=== PATIENT | female | born 1950 | race Caucasian/White ===

== ENCOUNTER 2016-10-10 00:44 | Emergency (ER) | payer OTHER ==
[2016-10-10 02:54] LABS: ABSOLUTE EOSINOPHILS # (AUTO) 0.1 10^3/uL (0.0-0.6); ABSOLUTE LYMPHOCYTES (AUTO) 1.9 10^3/uL (0.5-4.7); ABSOLUTE MONOCYTES (AUTO) 0.5 10^3/uL (0.1-1.4); ABSOLUTE NEUT (AUTO) 3.9 10^3/uL (1.7-8.2); BASOPHILS % (AUTO) 0.3 % (0-2); EOSINOPHILS % (AUTO) 1.7 % (0-6); HEMATOCRIT 34.1 % (36.0-47.0); HGB HCT DIFFERENCE -1.1; LYMPHOCYTES % (AUTO) 29.1 % (13-45); MEAN CORPUSCULAR HEMOGLOBIN 29.8 pg (27.0-33.4); MEAN CORPUSCULAR HGB CONC 32.2 g/dL (32.0-36.0); MEAN CORPUSCULAR VOLUME 93 fl (80-97); MONOCYTES % (AUTO) 7.9 % (3-13); RED BLOOD COUNT 3.68 10^6/uL (3.72-5.28); RED CELL DISTRIBUTION WIDTH 15.3 % (11.5-14.0); WHITE BLOOD COUNT 6.4 10^3/uL (4.0-10.5)
[2016-10-10 03:08] LABS: ALANINE AMINOTRANSFERASE 21 U/L (9-52); ALBUMIN 4.3 g/dL (3.5-5.0); ALKALINE PHOSPHATASE 97 U/L (38-126); ANION GAP 11 (5-19); ASPARTATE AMINO TRANSFERASE 49 U/L (14-36); BILIRUBIN,TOTAL 0.3 mg/dL (0.2-1.3); BLOOD UREA NITROGEN 12 mg/dL (7-20); CALCIUM 9.8 mg/dL (8.4-10.2); CARBON DIOXIDE 25 mmol/L (22-30); CHLORIDE 100 mmol/L (98-107); CREATININE RESULT 1.02 mg/dL (0.52-1.25); GLUCOSE 73 mg/dL (75-110); SODIUM 136.4 mmol/L (137-145); TOTAL PROTEIN 7.6 g/dL (6.3-8.2)
[2016-10-10 03:12] LABS: APPEARANCE,URINE SLIGHTLY-CLOUDY; BILIRUBIN,URINE NEGATIVE (NEGATIVE); GLUCOSE, URINE NEGATIVE (NEGATIVE); KETONES,URINE NEGATIVE (NEGATIVE); LEUKOCYTE ESTERASE,URINE NEGATIVE (NEGATIVE); NITRITE,URINE NEGATIVE (NEGATIVE); PROTEIN,URINE NEGATIVE (NEGATIVE); URINE SPECIFIC GRAVITY 1.004; UROBILINOGEN,URINE NEGATIVE mg/dL (<2.0)
[2016-10-10] MEDS ORDERED: IPRATROPIUM/ALBUTEROL 0.5-2.5 MG/3 ML AMPUL NEB ONE (03:18)
--- NOTE | 2016-10-10 03:19 | ER Document Report ---
ED GI/ - General Chief Complaint: Diarrhea Stated Complaint: SHAKING/DIARRHEA Time seen by provider: 03:19 Mode of Arrival: Ambulatory Information source: Patient TRAVEL OUTSIDE OF THE [place] IN LAST 30 DAYS: No - HPI Patient complains to provider of: Diarrhea Onset: This afternoon Timing/Duration: Gradual Quality of pain: Achy Severity at maximum: Moderate Severity in ED: Moderate Pain Level: 3 Associated symptoms: Diarrhea, Nausea Exacerbated by: Denies Relieved by: Denies Similar symptoms previously: Yes Recently seen / treated by doctor: No Notes: 10/10/16 05:26 Patient is a 65-year-old female who presents to the emergency room complaining of painful cough, low back pain, rectal irritation from diarrhea, symptoms been going on throughout the day and started this afternoon, she denies any vomiting , she does report a headache, no fever, she has a nonproductive cough with some shortness of breath, she denies any sick contacts, she is a half a pack per day smoker, and reports a history of colon resection with causes her to have bouts of diarrhea at times - Related Data Allergies/Adverse Reactions: Penicillins Allergy (Verified 07/05/14 05:50) prednisone [Prednisone] Allergy (Verified 07/05/14 05:50) codeine phosphate [From Tylenol-Codeine] Adverse Reaction (Verified 07/05/14 05: 50) propoxyphene napsylate [From Darvocet-N 100] Adverse Reaction (Verified 05:50) Past Medical History - Social History Smoking Status: Current Every Day Smoker Chew tobacco use (# tins/day): No Frequency of alcohol use: None Drug Abuse: None Family History: None Patient has suicidal ideation: No Patient has homicidal ideation: No Pulmonary Medical History: Reports: Hx Asthma, Hx COPD Renal/ Medical History: Denies: Hx Peritoneal Dialysis Psychiatric Medical History: Reports: Hx Depression Past Surgical History: Reports: Hx Appendectomy, Hx Bowel Surgery, Hx Gynecologic Surgery - Immunizations Hx Diphtheria, Pertussis, Tetanus Vaccination: Yes Review of Systems - Review of Systems Constitutional: No symptoms reported EENT: No symptoms reported Cardiovascular: See HPI Respiratory: See HPI Gastrointestinal: See HPI Genitourinary: No symptoms reported Female Genitourinary: No symptoms reported Musculoskeletal: See HPI Skin: No symptoms reported Hematologic/Lymphatic: No symptoms reported Neurological/Psychological: Headaches -: Yes All other systems reviewed and negative Physical Exam - Vital signs Vitals: Temp Pulse Resp BP Pulse Ox 98.3 F 88 14 140/82 H 100 10/10/16 00:51 10/10/16 00:51 10/10/16 00:51 10/10/16 00:51 10/10/16 00:51 Interpretation: Normal - General General appearance: Appears well, Alert - HEENT Head: Normocephalic, Atraumatic Eyes: Normal Pupils: PERRL - Respiratory Respiratory status: No respiratory distress Chest status: Nontender Breath sounds: Nonproductive cough, Wheezing - Mild Chest palpation: Normal - Cardiovascular Rhythm: Regular Heart sounds: Normal auscultation Murmur: No - Abdominal Inspection: Normal Distension: No distension Bowel sounds: Normal Tenderness: Tender - Epigastric Organomegaly: No organomegaly - Back Back: Normal, Nontender - Extremities General upper extremity: Normal inspection, Nontender, Normal color, Normal ROM , Normal temperature General lower extremity: Normal inspection, Nontender, Normal color, Normal ROM , Normal temperature, Normal weight bearing. No: Remedios's sign - Neurological Neuro grossly intact: Yes Cognition: Normal Orientation: AAOx4 Benito Coma Scale Eye Opening: Spontaneous Hunter Coma Scale Verbal: Oriented Hunter Coma Scale Motor: Obeys Commands Benito Coma Scale Total: 15 Speech: Normal Motor strength normal: LUE, RUE, LLE, RLE Sensory: Normal - Psychological Associated symptoms: Normal affect, Normal mood - Skin Skin Temperature: Warm Skin Moisture: Dry Skin Color: Normal Course - Re-evaluation Re-evalutation: 10/10/16 05:27 Patient lab and imaging findings were discussed with her at bedside which are relatively unremarkable, symptoms consistent with viral illness, patient was advised for supportive care, advised to follow-up with her primary care provider in one to 2 days or return if symptoms worsen, patient acknowledges understanding and agreement with this plan - Vital Signs Vital signs: Temp Pulse Resp BP Pulse Ox 97.6 F 91 16 147/81 H 97 10/10/16 04:42 10/10/16 04:42 10/10/16 04:42 10/10/16 04:42 10/10/16 04:42 - Laboratory Result Diagrams: 10/10/16 02:41 10/10/16 02:41 Laboratory results interpreted by me: 01/10/10/16 10/10/16 02:41 02:41 02:59 RBC 3.68 L Hgb 11.0 L Hct 34.1 L RDW 15.3 H Sodium 136.4 L Est GFR (Non-Af Amer) 55 L Glucose 73 L AST 49 H Urine Blood MODERATE H - Diagnostic Test Radiology reviewed: Image reviewed, Reports reviewed - EKG Interpretation by Me EKG shows normal: Sinus rhythm Rate: Normal Rhythm: NSR Discharge - Discharge Clinical Impression: Viral upper respiratory illness COPD (chronic obstructive pulmonary disease) Qualifiers: COPD type: COPD with acute exacerbation Qualified Code(s): J44.1 - Chronic obstructive pulmonary disease with (acute) exacerbation Diarrhea Qualifiers: Diarrhea type: unspecified type Qualified Code(s): R19.7 - Diarrhea, unspecified Condition: Stable Disposition: HOME, SELF-CARE Instructions: Upper Respiratory Illness ([facility]), Diarrhea, Nonspecific ([facility]) Additional Instructions: Follow up with your primary care provider in one to 2 days. Return to the emergency room immediately if symptoms worsen or any additional concerns. Forms: Smoking Cessation Education
[2016-10-10] MEDS ORDERED: HYDROCODONE/ACETAMINOPHEN 5-325 MG TABLET PO ONE (04:21)
[2016-10-10] MEDS ORDERED: HYDROCODONE/ACETAMINOPHEN 5-325 MG 6 TAB/DSPK PO PRN (04:30)
[2016-10-10 04:47] VITALS: BP 147/81
--- NOTE | 2016-10-10 08:09 | EKG REPORT ---
SEVERITY:- ABNORMAL ECG - SINUS RHYTHM CONSIDER LEFT VENTRICULAR HYPERTROPHY : Confirmed by: Luiz Felipe MD 10-Oct-2016 08:07:40
== END 2016-10-10 04:47 | disposition home or self-care (01) ==
LOC: ER 00:44
DX: J44.1 Chronic obstructive pulmonary disease with (acute) exacerbation (principal); B34.9 Viral infection, unspecified; R19.7 Diarrhea, unspecified; R05 Cough; M54.5 Low back pain; F17.210 Nicotine dependence, cigarettes, uncomplicated; J45.909 Unspecified asthma, uncomplicated; Z88.6 Allergy status to analgesic agent; Z88.0 Allergy status to penicillin
CPT/HCPCS: 93005; 94640; 99284; 36415; 83690; 85025; 80053; 81001; 71020; 93010; J7620

== ENCOUNTER 2016-11-06 20:16 | Emergency (ER) | payer OTHER ==
[2016-11-06] MEDS ORDERED: ONDANSETRON HCL INJ/PF 4 MG/2 ML SDV IV ONE (22:38)
[2016-11-06] MEDS ORDERED: MORPHINE SULFATE 10 MG/ML INJ IV ONE (22:38)
[2016-11-06] MEDS ORDERED: NORMAL SALINE 1000 ML 1,000 ML IV ONE (22:38)
--- NOTE | 2016-11-06 22:48 | ER Document Report ---
ED General - General Chief Complaint: Nausea Stated Complaint: NAUSEA/BODY ACHES Notes: Patient is a 66-year-old female presents for complaint of body aches and vomiting for last couple days. She's also had a pain over her left back that radiates around her left flank. She did have some dysuria and originally but this has since gone away. She says that she had a friend with similar symptoms that she was exposed to now she has the same symptoms. Some cough. Mild congestion. No headache. Subbjective fevers at home. No other complaints at this time. She does have a cast on the left lower leg. She says she's had this cast for 8 weeks. TRAVEL OUTSIDE OF THE [place] IN LAST 30 DAYS: No - Related Data Allergies/Adverse Reactions: Penicillins Allergy (Verified 07/05/14 05:50) prednisone [Prednisone] Allergy (Verified 07/05/14 05:50) codeine phosphate [From Tylenol-Codeine] Adverse Reaction (Verified 07/05/14 05: 50) propoxyphene napsylate [From Darvocet-N 100] Adverse Reaction (Verified 05:50) Past Medical History - Social History Smoking Status: Unknown if Ever Smoked Frequency of alcohol use: None Drug Abuse: None Family History: None Patient has suicidal ideation: No Patient has homicidal ideation: No Pulmonary Medical History: Reports: Hx Asthma, Hx COPD Renal/ Medical History: Denies: Hx Peritoneal Dialysis Psychiatric Medical History: Reports: Hx Depression Past Surgical History: Reports: Hx Appendectomy, Hx Bowel Surgery, Hx Gynecologic Surgery - Immunizations Hx Diphtheria, Pertussis, Tetanus Vaccination: Yes Review of Systems - Review of Systems Notes: My Normal Review Basic REVIEW OF SYSTEMS: CONSTITUTIONAL : Subjective fever EENT: Some congestion CARDIOVASCULAR: Denies chest pain. RESPIRATORY: Cough GASTROINTESTINAL: Denies abdominal pain. Denies nausea, vomiting, or diarrhea. Denies constipation. Last BM: GENITOURINARY: Denies difficulty urinating, painful urination, burning, frequency, or blood in urine. MUSCULOSKELETAL: Pain over left upper back SKIN: Denies rash or skin lesions. NEUROLOGICAL: Denies altered mental status or loss of consciousness. Denies headache. Denies weakness or paralysis or loss of use of either side. Denies problems with gait or speech. Denies sensory or motor loss. ALL OTHER SYSTEMS REVIEWED AND NEGATIVE. Physical Exam - Vital signs Vitals: Temp Pulse Resp BP Pulse Ox 97.5 F 84 16 128/82 H 93 11/06/16 20:43 11/06/16 20:43 11/06/16 20:43 11/06/16 20:43 11/06/16 20:43 - Notes Notes: General Appearance: Well nourished, alert, cooperative, no acute distress, no obvious discomfort. Vitals: reviewed, See vital signs table. Head: no swelling or tenderness to the head Eyes: PERRL, EOMI, Conjuctiva clear Mouth: No decreasd moisture Throat: No tonsillar inflammation, No airway obstruction, No lymphadenopathy Ears: Normal appearing tympanic membranes Neck: Supple, no neck tenderness, No thyromegaly Lungs: No wheezing, No rales, No rhonci, No accessory muscle use, good air exchange bilaterally. Heart: Normal rate, Regular rythm, No murmur, no rub Abdomen: Normal BS, soft, No rigidity, No abdominal tenderness, No guarding, no rebound, no abdominal masses, no organomegaly Extremities: strength 5/5 in all extremities, good pulses in all extremities, no swelling or tenderness in the extremities, no edema. Skin: warm, dry, appropriate color, no rash Neuro: speech clear, oriented x 3, normal affect, responds appropriately to questions. Course - Re-evaluation Re-evalutation: 11/07/16 01:28 Patient is also me that the pain is radiating from her back around into her chest. She still says the pain is mainly in her back says is radiating more around now. Is not worse with coughing or deep breathing. D-dimer is negative. Pain pain started radiating around the chest and will obtain EKG and cardiac enzymes. I do think it is unlikely it will be cardiac in etiology being that she's had more URI of viral type symptoms so she with it; however, she does have some risk factors including smoking and age and therefore we will obtain EKG and cardiac enzymes. - Vital Signs Vital signs: Temp Pulse Resp BP Pulse Ox 97.8 F 77 14 148/74 H 97 11/07/16 02:53 11/07/16 02:53 11/07/16 02:53 11/07/16 02:53 11/07/16 02:53 - Laboratory Result Diagrams: 11/06/16 23:44 11/06/16 23:44 Laboratory results interpreted by me: 11/06/16 11/06/16 11/06/16 23:15 23:44 23:44 RDW 16.3 H Sodium 136.5 L Est GFR (Non-Af Amer) 52 L Glucose 118 H Urine Blood SMALL H - EKG Interpretation by Me Additional EKG results interpreted by me: 11/07/16 02:20 EKG is reviewed and interpreted by me. EKG shows normal sinus rhythm with rate of [address] segment elevation or depression. No ischemic T wave inversions. VT interval, QRS duration, QTC intervals are within normal range. Old EKG for comparison is from [facility] 2016. - Transfer of Care Notes: 11/07/16 06:10 Exact cause of patient's body aches unclear. I did obtain cardiac enzymes and EKG discussed pain was in her left back. These are negative. I really do not suspect coronary disease. I suspect her pain is poorly related to all her coughing from her recent upper chest but toward type infection. Her symptoms seem very consistent with a flulike illness or upper respiratory infection and that she has body aches, chills, cough, and nasal congestion. At this time for patient safety be discharged home. I encourage her to return to ER immediately if she has worsening of her symptoms, difficulty breathing, or feels unwell. Patient agrees with plan and will be discharged home. Dictation of this chart was performed using voice recognition software; therefore, there may be some unintended grammatical errors. Discharge - Discharge Clinical Impression: Body aches, Cough, Bronchitis Condition: Good Disposition: HOME, SELF-CARE Instructions: Oral Narcotic Medication ([facility]) Additional Instructions: Please do not drive when taking the prescribed pain medicine, Ultram. Please follow-up with your doctor for reevaluation to 3 days. Please return to ER immediately for any difficulty breathing, worsening pain, fevers, or feel unwell. Prescriptions: Azithromycin 250 mg PO DAILY #4 tablet Tramadol HCl 50 mg PO Q6 PRN #12 tablet PRN Reason:
[2016-11-06 23:52] LABS: APPEARANCE,URINE SLIGHTLY-CLOUDY; BILIRUBIN,URINE NEGATIVE (NEGATIVE); GLUCOSE, URINE NEGATIVE (NEGATIVE); KETONES,URINE NEGATIVE (NEGATIVE); LEUKOCYTE ESTERASE,URINE NEGATIVE (NEGATIVE); NITRITE,URINE NEGATIVE (NEGATIVE); PROTEIN,URINE NEGATIVE (NEGATIVE); URINE SPECIFIC GRAVITY 1.013; UROBILINOGEN,URINE NEGATIVE mg/dL (<2.0)
[2016-11-06 23:53] LABS: ABSOLUTE EOSINOPHILS # (AUTO) 0.1 10^3/uL (0.0-0.6); ABSOLUTE MONOCYTES (AUTO) 0.8 10^3/uL (0.1-1.4); ABSOLUTE NEUT (AUTO) 4.5 10^3/uL (1.7-8.2); BASOPHILS % (AUTO) 0.3 % (0-2); EOSINOPHILS % (AUTO) 0.8 % (0-6); HEMATOCRIT 37.8 % (36.0-47.0); HEMOGLOBIN 12.6 g/dL (12.0-15.5); LYMPHOCYTES % (AUTO) 35.8 % (13-45); MEAN CORPUSCULAR HEMOGLOBIN 30.9 pg (27.0-33.4); MEAN CORPUSCULAR HGB CONC 33.5 g/dL (32.0-36.0); MEAN CORPUSCULAR VOLUME 92 fl (80-97); MONOCYTES % (AUTO) 9.2 % (3-13); RED CELL DISTRIBUTION WIDTH 16.3 % (11.5-14.0); SEGMENTED NEUTROPHILS % (AUTO) 53.9 % (42-78); WHITE BLOOD COUNT 8.3 10^3/uL (4.0-10.5)
[2016-11-07 00:05] LABS: ANION GAP 14 (5-19); BLOOD UREA NITROGEN 15 mg/dL (7-20); CALCIUM 9.9 mg/dL (8.4-10.2); CARBON DIOXIDE 23 mmol/L (22-30); CHLORIDE 100 mmol/L (98-107); CREATININE RESULT 1.06 mg/dL (0.52-1.25); GLUCOSE 118 mg/dL (75-110); POTASSIUM 3.8 mmol/L (3.6-5.0); SODIUM 136.5 mmol/L (137-145)
[2016-11-07 01:57] LABS: CREATINE KINASE MB 1.08 ng/mL (<4.55); TROPONIN I < 0.012 ng/mL
[2016-11-07] MEDS ORDERED: AZITHROMYCIN 250 MG TABLET PO ONE (02:25)
[2016-11-07 03:24] VITALS: BP 148/74
--- NOTE | 2016-11-07 11:17 | EKG REPORT ---
SEVERITY:- ABNORMAL ECG - SINUS RHYTHM CONSIDER LEFT VENTRICULAR HYPERTROPHY : Confirmed by: Harriet Cardozo 07-Nov-2016 11:17:06
== END 2016-11-07 02:53 | disposition home or self-care (01) ==
LOC: ER 20:16
DX: J40 Bronchitis, not specified as acute or chronic (principal); M79.1 Myalgia; M54.89 Other dorsalgia; R11.0 Nausea; Z88.0 Allergy status to penicillin
CPT/HCPCS: 93005; 99284; 96361; 96374; 96375; 36415; 82553; 82550; 85025; 80048; 81001; 84484; 85379; 87804; 71020; 93010; J2270; J2405; J7030

== ENCOUNTER 2016-11-08 19:19 | Emergency (ER) | payer OTHER ==
[2016-11-08 21:07] VITALS: BP 145/89
[2016-11-08] MEDS ORDERED: ONDANSETRON 4 MG TAB.RAPDIS PO ONE (21:10)
--- NOTE | 2016-11-08 21:12 | ER Document Report ---
ED Medical Screen (RME) - General Stated Complaint: VOMITING AND DIARRHEA Mode of Arrival: Ambulatory Information source: Patient Notes: 66 y/o F presents to ED c/o lower back pain and n/v/d over the last 4 days. States was seen in ED 2 days ago but symptoms are persistent. Denies fever, chest pain, or sob. I have greeted and performed a rapid initial assessment of this patient. A comprehensive ED assessment and evaluation of the patient, analysis of test results and completion of the medical decision making process will be conducted by additional ED providers. TRAVEL OUTSIDE OF THE [place] IN LAST 30 DAYS: No - Related Data Allergies/Adverse Reactions: Penicillins Allergy (Verified 07/05/14 05:50) prednisone [Prednisone] Allergy (Verified 07/05/14 05:50) codeine phosphate [From Tylenol-Codeine] Adverse Reaction (Verified 07/05/14 05: 50) propoxyphene napsylate [From Darvocet-N 100] Adverse Reaction (Verified 05:50) Past Medical History Pulmonary Medical History: Reports: Hx Asthma, Hx COPD Renal/ Medical History: Denies: Hx Peritoneal Dialysis Psychiatric Medical History: Reports: Hx Depression Past Surgical History: Reports: Hx Appendectomy, Hx Bowel Surgery, Hx Gynecologic Surgery - Immunizations Hx Diphtheria, Pertussis, Tetanus Vaccination: Yes Physical Exam - Vital signs Vitals: Temp Pulse Resp BP Pulse Ox 97.4 F 103 H 22 H 145/89 H 97 11/08/16 21:06 11/08/16 21:06 11/08/16 21:06 11/08/16 21:06 11/08/16 21:06 - General General appearance: Alert In distress: None - Respiratory Respiratory status: No respiratory distress - Cardiovascular Rhythm: Regular Pulses: Normal: Radial Normal capillary refill: Yes Course - Vital Signs Vital signs: Temp Pulse Resp BP Pulse Ox 97.4 F 103 H 22 H 145/89 H 97 11/08/16 21:06 11/08/16 21:06 11/08/16 21:06 11/08/16 21:06 11/08/16 21:06
[2016-11-09] MEDS ORDERED: NORMAL SALINE 1000 ML 1,000 ML IV ONE (01:24)
[2016-11-09] MEDS ORDERED: ONDANSETRON HCL INJ/PF 4 MG/2 ML SDV IV ONE (01:24)
[2016-11-09] MEDS ORDERED: MORPHINE SULFATE 10 MG/ML INJ IV ONE (01:24)
--- NOTE | 2016-11-09 01:26 | ER Document Report ---
ED General - General Chief Complaint: Nausea/Vomiting/Diarrhea Stated Complaint: VOMITING AND DIARRHEA Mode of Arrival: Ambulatory Notes: Patient is 66-year-old female presents with complaint of vomiting and diarrhea started today. Her child had diarrhea yesterday. She does drink well water. She has 2 dogs at home but they're both up-to-date on shots. She's had no fevers. No chest pain. Mild cough but she is a smoker. Diffuse crampy abdominal pain. No blood or stool. No blood in her emesis. No other complaints at this time. TRAVEL OUTSIDE OF THE [place] IN LAST 30 DAYS: No - Related Data Allergies/Adverse Reactions: Penicillins Allergy (Verified 11/08/16 21:12) prednisone [Prednisone] Allergy (Verified 11/08/16 21:12) codeine phosphate [From Tylenol-Codeine] Adverse Reaction (Verified 11/08/16 21: 12) propoxyphene napsylate [From Darvocet-N 100] Adverse Reaction (Verified 21:12) Past Medical History - General Information source: Patient - Social History Smoking Status: Never Smoker Chew tobacco use (# tins/day): No Frequency of alcohol use: None Drug Abuse: None Family History: None Patient has suicidal ideation: No Patient has homicidal ideation: No Pulmonary Medical History: Reports: Hx Asthma, Hx COPD Renal/ Medical History: Denies: Hx Peritoneal Dialysis Psychiatric Medical History: Reports: Hx Depression Past Surgical History: Reports: Hx Appendectomy, Hx Bowel Surgery, Hx Gynecologic Surgery - Immunizations Hx Diphtheria, Pertussis, Tetanus Vaccination: Yes Review of Systems - Review of Systems Notes: My Normal Review Basic REVIEW OF SYSTEMS: CONSTITUTIONAL : Denies fever, chills, or sweats. Denies recent illness. EENT: Denies eye, ear, throat, or mouth pain or symptoms. Denies nasal or sinus congestion. CARDIOVASCULAR: Denies chest pain. RESPIRATORY: Mild cough. GASTROINTESTINAL: Denies abdominal pain. Denies nausea, vomiting, or diarrhea. Denies constipation. Last BM: GENITOURINARY: Denies difficulty urinating, painful urination, burning, frequency, or blood in urine. MUSCULOSKELETAL: Denies neck or back pain or joint pain or swelling. SKIN: Denies rash or skin lesions. NEUROLOGICAL: Denies altered mental status or loss of consciousness. Denies headache. Denies weakness or paralysis or loss of use of either side. Denies problems with gait or speech. Denies sensory or motor loss. ALL OTHER SYSTEMS REVIEWED AND NEGATIVE. Physical Exam - Vital signs Vitals: Temp Pulse Resp BP Pulse Ox 97.4 F 103 H 22 H 145/89 H 97 11/08/16 21:06 11/08/16 21:06 11/08/16 21:06 11/08/16 21:06 11/08/16 21:06 Course - Vital Signs Vital signs: Temp Pulse Resp BP Pulse Ox 97.4 F 103 H 22 H 145/89 H 97 11/08/16 21:09 11/08/16 21:09 11/08/16 21:09 11/08/16 21:09 11/08/16 21:09 - Laboratory Result Diagrams: 11/09/16 01:41 11/09/16 01:41 Laboratory results interpreted by me: 11/09/16 11/09/16 01:41 01:41 RDW 16.1 H Carbon Dioxide 20 L Est GFR (Non-Af Amer) 52 L AST 42 H Lipase 320.8 H - Transfer of Care Notes: 11/09/16 06:28 Patient's vomiting is gone. Her nausea is improved. She has received IV fluids. Her stools been sent for culture. Informed her that if the culture is positive we will call her with results. Also gave her the culture callback number and her discharge instructions and encouraged to call the number if she does not hear anything 2 days. Encourage return to ER immediately if she has fevers, worsening pain, or intractable vomiting. Patient agrees with plan will be discharged home. Dictation of this chart was performed using voice recognition software; therefore, there may be some unintended grammatical errors. Discharge - Discharge Clinical Impression: Vomiting and diarrhea Abdominal pain Qualifiers: Abdominal location: unspecified location Qualified Code(s): R10.9 - Unspecified abdominal pain Condition: Good Disposition: HOME, SELF-CARE Additional Instructions: VOMITING: Vomiting (or nausea without vomiting) can be caused by many other different problems. It can mean that something's wrong with the stomach, such as ulcers or inflammation or the intestinal tract, such as appendicitis. But it can also be a symptom of a problem that has nothing to do with the stomach or intestines. Vomiting is common with severe headaches, earaches, tonsillitis, and kidney infections, etc. We see it with pneumonia or heart attacks. Drugs can cause nausea and vomiting. Many abdominal problems cause vomiting; for example, gallstones, kidney stones, pancreatitis, and intestinal obstruction ( blocked bowels). In most cases, curing the vomiting depends on fixing the problem that caused it. For temporary relief, we may use an anti-nausea medicine. For home use, we can prescribe suppositories, chewable pills, pills that dissolve in the mouth, or liquid anti-nausea drugs. If the vomiting seems to be caused by a problem in the stomach, acid-suppressing drugs may be prescribed as well. It's important to avoid dehydration. Sip small amounts of clear liquids ( soft drinks, tea, broth, etc) . Try to take fluids frequently even if you are vomiting to prevent dehydration. Take increasing amounts of fluid and when liquids are being consumed successfully, advance to small amounts of bland food (toast, soups, mashed potatoes, etc.) until you are able to resume a regular diet. Avoid aspirin, tobacco, and alcohol. If the vomiting worsens, if the problem that's making you vomit worsens, or if there's evidence of bleeding in the stomach (such as black, tarry stool, or bloody or black vomit), you should return immediately. Also, return if abdominal pain worsens or becomes localized to one area or you develop high fever. Call your doctor if you aren't improved in 24 hours. DIARRHEA, NON-SPECIFIC: Diarrhea means frequent, watery stools. There are many causes. Any problem that keeps the intestinal tract from absorbing water from the stool can lead to diarrhea. A sudden new diarrhea problem is usually caused by a virus, food sensitivity, toxic bacteria, or drugs. In this case, we expect the problem to go away soon. Testing is done only if you seem seriously ill from the diarrhea. If you have chronic diarrhea, or diarrhea that keeps coming back, we need to find out why. Chronic diarrhea can be due to inflammation of the bowels such as Crohn's disease or ulcerative colitis, food sensitivity such as intolerance to lactose or wheat protein, irritable bowel syndrome, and other problems. If your diarrhea is a significant problem but it's not clear why you have it, we' ll refer you to a specialist for further testing. During an episode of diarrhea, drink small amounts (two to six ounces) of clear liquids (soft drinks, sport drinks, herb teas, broth, etc). Take fluids frequently to prevent dehydration. It's usually not a problem to take mild anti- diarrhea medication such as Kaopectate or Pepto-Bismol. As the diarrhea eases, advance to small amounts of bland food (mashed potato, toast) for 24 hours. Call the physician if blood appears in your vomit or stool, if vomiting lasts longer than 24 hours, if the abdominal pain worsens or becomes localized to one area, if you develop high fever, or if you become lightheaded and weak. INTRAVENOUS (I V) FLUIDS: As part of your care today, you received intravenous (IV) fluids. IV fluids are administered to patients who are dehydrated or to those who have certain chemical (electrolyte) abnormalities that need correcting. ANTINAUSEA MEDICATION: You have been given a medication to suppress nausea and vomiting. This type of medication can be given as a shot, pill, or suppository. It will usually last for many hours. Pills and shots usually last six to eight hours. For the typical illness, only one or two doses of the medication may be necessary. Mild lightheadedness may occur. This type of medicine can cause drowsiness. Do not drive or operate dangerous machinery while under its influence. Do not mix with alcohol. See your doctor at once if you have muscle spasms or tightness, or uncontrollable motions (particularly of the neck, mouth, or jaw). Persistent vomiting or severe lightheadedness should also be evaluated by the physician. FOLLOW-UP CARE: If you have been referred to a physician for follow-up care, call the physician s office for an appointment as you were instructed or within the next two days. If you experience worsening or a significant change in your symptoms, notify the physician immediately or return to the Emergency Department at any time for re-evaluation. Please return to [facility] ER if oyu have fevers, recurrent vomiting, worsening pain, blood in your stool, or feel that your are getting worse. Please take the medications as prescribed. Your stool has been sent for culture. If you do not get a phone call in 2 days, please call [phone] to get the results of your stool culture. Please follow up with your doctor on [place] for reevaluation. Prescriptions: Dicyclomine HCl [Bentyl 20 mg Tablet] 20 mg PO QID #40 tablet Ondansetron [Zofran Odt 4 mg Tablet] 1 tab PO Q4H PRN #15 tab.rapdis PRN Reason: For Nausea/Vomiting Forms: Return to Work
[2016-11-09 01:50] LABS: ABSOLUTE EOSINOPHILS # (AUTO) 0.1 10^3/uL (0.0-0.6); ABSOLUTE LYMPHOCYTES (AUTO) 2.5 10^3/uL (0.5-4.7); ABSOLUTE MONOCYTES (AUTO) 0.7 10^3/uL (0.1-1.4); ABSOLUTE NEUT (AUTO) 4.1 10^3/uL (1.7-8.2); BASOPHILS % (AUTO) 0.3 % (0-2); EOSINOPHILS % (AUTO) 1.3 % (0-6); HEMATOCRIT 37.8 % (36.0-47.0); HEMOGLOBIN 12.9 g/dL (12.0-15.5); HGB HCT DIFFERENCE 0.9; LYMPHOCYTES % (AUTO) 34.3 % (13-45); MEAN CORPUSCULAR VOLUME 91 fl (80-97); MONOCYTES % (AUTO) 8.9 % (3-13); RED BLOOD COUNT 4.15 10^6/uL (3.72-5.28); RED CELL DISTRIBUTION WIDTH 16.1 % (11.5-14.0); SEGMENTED NEUTROPHILS % (AUTO) 55.2 % (42-78); WHITE BLOOD COUNT 7.4 10^3/uL (4.0-10.5)
[2016-11-09 02:07] LABS: ALANINE AMINOTRANSFERASE 21 U/L (9-52); ALBUMIN 4.3 g/dL (3.5-5.0); ALKALINE PHOSPHATASE 99 U/L (38-126); ANION GAP 15 (5-19); ASPARTATE AMINO TRANSFERASE 42 U/L (14-36); BILIRUBIN,TOTAL 0.4 mg/dL (0.2-1.3); BLOOD UREA NITROGEN 11 mg/dL (7-20); CARBON DIOXIDE 20 mmol/L (22-30); CHLORIDE 105 mmol/L (98-107); CREATININE RESULT 1.07 mg/dL (0.52-1.25); GLUCOSE 102 mg/dL (75-110); LIPASE 320.8 U/L (23-300); POTASSIUM 3.6 mmol/L (3.6-5.0); SODIUM 139.7 mmol/L (137-145); TOTAL PROTEIN 7.8 g/dL (6.3-8.2)
[2016-11-09] MEDS ORDERED: ONDANSETRON ODT 4 MG TAB (6 TAB/DSPK) PO PRN (05:04)
== END 2016-11-09 05:30 | disposition home or self-care (01) ==
LOC: ER 19:19
DX: R11.2 Nausea with vomiting, unspecified (principal); R19.7 Diarrhea, unspecified; R10.84 Generalized abdominal pain; J44.9 Chronic obstructive pulmonary disease, unspecified; J45.909 Unspecified asthma, uncomplicated; R05 Cough; Z88.0 Allergy status to penicillin; Z88.8 Allergy status to other drugs, medicaments and biological substances; Z90.49 Acquired absence of other specified parts of digestive tract
CPT/HCPCS: 99284; 96374; 96375; 36415; 87045; 87205; 87209; 83690; 83735; 87177; 85025; 80053; 71010; J2270; J2405

== ENCOUNTER 2016-11-09 17:57 | Emergency (ER) | payer OTHER ==
--- NOTE | 2016-11-09 18:04 | ER Document Report ---
ED Medical Screen (RME) - General Stated Complaint: CHEST PAIN,BACK PAIN,NAUSEA,VOMITING Mode of Arrival: Medic Information source: Patient Notes: Patient reports nausea, vomiting, diarrhea for the past 4 days. Patient additionally complains of chest pain as well as cough. Patient states she was recently evaluated for this problem. Patient reports that chest pain started several weeks ago. Patient complains of abdominal cramping with diarrhea. Patient states she is allergic to aspirin. hx: Asthma, hypertension I have greeted and performed a rapid initial assessment of this patient. A comprehensive ED assessment and evaluation of the patient, analysis of test results and completion of the medical decision making process will be conducted by additional ED providers. TRAVEL OUTSIDE OF THE [place] IN LAST 30 DAYS: No - Related Data Allergies/Adverse Reactions: Penicillins Allergy (Verified 11/09/16 18:23) prednisone [Prednisone] Allergy (Verified 11/09/16 18:23) codeine phosphate [From Tylenol-Codeine] Adverse Reaction (Verified 11/09/16 18: 23) propoxyphene napsylate [From Darvocet-N 100] Adverse Reaction (Verified 18:23) Past Medical History Pulmonary Medical History: Reports: Hx Asthma, Hx COPD Renal/ Medical History: Denies: Hx Peritoneal Dialysis Psychiatric Medical History: Reports: Hx Depression Past Surgical History: Reports: Hx Appendectomy, Hx Bowel Surgery, Hx Gynecologic Surgery - Immunizations Hx Diphtheria, Pertussis, Tetanus Vaccination: Yes Physical Exam - Abdominal Tenderness: Tender - Abdominal tenderness
[2016-11-09 18:25] VITALS: BP 136/87
--- NOTE | 2016-11-09 18:38 | EKG REPORT ---
SEVERITY:- ABNORMAL ECG - SINUS RHYTHM, ARTIFACTS PROBABLE LVH WITH SECONDARY REPOL ABNRM BORDERLINE INFERIOR Q WAVES : Confirmed by: Harriet Cardozo 09-Nov-2016 18:36:39
[2016-11-09 19:20] LABS: ABSOLUTE BASOPHILS # (AUTO) 0.1 10^3/uL (0.0-0.2); ABSOLUTE EOSINOPHILS # (AUTO) 0.1 10^3/uL (0.0-0.6); ABSOLUTE LYMPHOCYTES (AUTO) 3.5 10^3/uL (0.5-4.7); ABSOLUTE MONOCYTES (AUTO) 0.6 10^3/uL (0.1-1.4); ABSOLUTE NEUT (AUTO) 8.2 10^3/uL (1.7-8.2); BASOPHILS % (AUTO) 0.7 % (0-2); EOSINOPHILS % (AUTO) 0.9 % (0-6); HEMATOCRIT 41.4 % (36.0-47.0); HEMOGLOBIN 13.5 g/dL (12.0-15.5); HGB HCT DIFFERENCE -0.9; LYMPHOCYTES % (AUTO) 28.3 % (13-45); MEAN CORPUSCULAR HEMOGLOBIN 30.1 pg (27.0-33.4); MEAN CORPUSCULAR HGB CONC 32.6 g/dL (32.0-36.0); MEAN CORPUSCULAR VOLUME 92 fl (80-97); RED BLOOD COUNT 4.48 10^6/uL (3.72-5.28); RED CELL DISTRIBUTION WIDTH 16.1 % (11.5-14.0); SEGMENTED NEUTROPHILS % (AUTO) 65.1 % (42-78); WHITE BLOOD COUNT 12.5 10^3/uL (4.0-10.5)
[2016-11-09 19:42] LABS: ALANINE AMINOTRANSFERASE 23 U/L (9-52); ALBUMIN 5.4 g/dL (3.5-5.0); ALKALINE PHOSPHATASE 118 U/L (38-126); ANION GAP 15 (5-19); ASPARTATE AMINO TRANSFERASE 55 U/L (14-36); BLOOD UREA NITROGEN 9 mg/dL (7-20); CALCIUM 10.4 mg/dL (8.4-10.2); CARBON DIOXIDE 19 mmol/L (22-30); CHLORIDE 106 mmol/L (98-107); CREATINE KINASE 121 U/L (30-135); CREATININE RESULT 1.13 mg/dL (0.52-1.25); GLUCOSE 85 mg/dL (75-110); LIPASE 195.6 U/L (23-300); SODIUM 139.9 mmol/L (137-145); TOTAL PROTEIN 8.8 g/dL (6.3-8.2)
[2016-11-09 19:53] LABS: CREATINE KINASE MB 2.49 ng/mL (<4.55); TROPONIN I 0.024 ng/mL
[2016-11-09 20:11] LABS: POTASSIUM 4.9 mmol/L (3.6-5.0)
[2016-11-09] MEDS ORDERED: OXYCODONE HCL IR 5 MG TABLET PO ONE (22:17)
--- NOTE | 2016-11-09 22:20 | ER Document Report ---
ED General - General Chief Complaint: Abdominal Pain Stated Complaint: CHEST PAIN,BACK PAIN,NAUSEA,VOMITING Mode of Arrival: Medic Notes: Patient is a 66-year-old female with a history of chronic left sided rib pain who is presenting with concerns of that rib pain. States is a constant, dull, sharp pain. States she's had multiple imaging studies done for this none of which have not revealed cause of her pain. She was also seen early this morning for vomiting and diarrhea but she states that this complaint is mostly resolved. Denies any history of DVT or pulmonary embolus. Denies that this pain is associated with shortness of breath, vomiting or diaphoresis. Nothing is new or different about the pain today patient states "I'm just so tired of not getting any answers about why had this pain" states the pain has been there for more than 2 years at this time. Nothing improves or worsens her pain. TRAVEL OUTSIDE OF THE [place] IN LAST 30 DAYS: No - Related Data Allergies/Adverse Reactions: Penicillins Allergy (Verified 11/09/16 18:23) prednisone [Prednisone] Allergy (Verified 11/09/16 18:23) codeine phosphate [From Tylenol-Codeine] Adverse Reaction (Verified 11/09/16 18: 23) propoxyphene napsylate [From Darvocet-N 100] Adverse Reaction (Verified 18:23) Past Medical History - General Information source: Patient - Social History Smoking Status: Current Every Day Smoker Chew tobacco use (# tins/day): No Frequency of alcohol use: None Drug Abuse: None Lives with: Spouse/Significant other Family History: None Patient has suicidal ideation: No Patient has homicidal ideation: No Pulmonary Medical History: Reports: Hx Asthma, Hx COPD Renal/ Medical History: Denies: Hx Peritoneal Dialysis Psychiatric Medical History: Reports: Hx Depression Past Surgical History: Reports: Hx Appendectomy, Hx Bowel Surgery, Hx Gynecologic Surgery - Immunizations Hx Diphtheria, Pertussis, Tetanus Vaccination: Yes Review of Systems - Review of Systems Notes: Constitutional: Negative for fever. HENT: Negative for sore throat. Eyes: Negative for visual changes. Cardiovascular: Negative for chest pain. Respiratory: Negative for shortness of breath. Gastrointestinal: Negative for abdominal pain, vomiting or diarrhea. Genitourinary: Negative for dysuria. Musculoskeletal: Positive for left sided rib pain Skin: Negative for rash. Neurological: Negative for headaches, weakness or numbness. 10 point ROS negative except as marked above and in HPI. Physical Exam - Vital signs Vitals: Temp Pulse Resp BP Pulse Ox 97.9 F 92 14 136/87 H 100 11/09/16 18:24 11/09/16 18:24 11/09/16 18:24 11/09/16 18:24 11/09/16 18:24 Interpretation: Normal Notes: PHYSICAL EXAMINATION: GENERAL: Frail, older appearing than stated age HEAD: Atraumatic, normocephalic. EYES: Pupils equal round and reactive to light, extraocular movements intact, sclera anicteric, conjunctiva are normal. ENT: nares patent, oropharynx clear without exudates. Moist mucous membranes. NECK: Normal range of motion, supple without lymphadenopathy LUNGS: Breath sounds clear to auscultation bilaterally and equal. No wheezes rales or rhonchi. Chest wall: Pain on palpation of the left lower rib spaces without deformity or step-off HEART: Regular rate and rhythm without murmurs ABDOMEN: Soft, nontender, normoactive bowel sounds. No guarding, no rebound. No masses appreciated. EXTREMITIES: Normal range of motion, no pitting or edema. No cyanosis. NEUROLOGICAL: No focal neurological deficits. Moves all extremities spontaneously and on command. PSYCH: Normal mood, normal affect. SKIN: Warm, Dry, normal turgor, no rashes or lesions noted. Course - Re-evaluation Re-evalutation: 11/09/16 22:17 Presentation of chest pain in an otherwise well appearing patient. Low clinical suspicion for ACS given clinical history, exam, EKG without ST elevations or depressions, and negative initial troponin. HEART score less than or equal to 3. PE also seems unlikely given clinical history, absence of tachycardia or dyspnea. Wells score is 0. CXR without evidence of pneumothorax or pneumonia. No widened mediastinum. Aortic dissection also seems unlikely given history, symmetric pulses, CXR, and vitals. I suspect that this is a chronic pain syndrome as patient admits that she's had this localized left-sided intercostal pain for greater than a year and has had multiple CTs of the chest, MRI of the chest, and visited multiple specialists without explanation of her pain. It is possible that she has a localized complex regional pain syndrome after a rib fracture which she did have several years prior to the onset of this pain. I have explained to the patient that she will require chronic long-term management of her pain with her primary care doctor or possibly a pain clinic. Given reassuring evaluation, will plan for discharge home at this time with return precautions and follow-up recommendations. - Vital Signs Vital signs: Temp Pulse Resp BP Pulse Ox 97.9 F 92 14 136/87 H 100 11/09/16 18:24 11/09/16 18:24 11/09/16 18:24 11/09/16 18:24 11/09/16 18:24 - Laboratory Result Diagrams: 11/09/16 18:46 11/09/16 18:46 Laboratory results interpreted by me: 11/09/16 11/09/16 18:46 18:46 WBC 12.5 H RDW 16.1 H Carbon Dioxide 19 L Est GFR ( Amer) 59 L Est GFR (Non-Af Amer) 48 L Calcium 10.4 H AST 55 H Total Protein 8.8 H Albumin 5.4 H - Diagnostic Test Radiology reviewed: Image reviewed, Reports reviewed Radiology results interpreted by me: 11/09/16 22:19 Chest x-ray: No acute infiltrate - EKG Interpretation by Me Additional EKG results interpreted by me: 11/10/16 02:50 Normal sinus rhythm. Rate 90. No ST elevations or depressions. QTC 460. Discharge - Discharge Clinical Impression: Chest wall pain Condition: Good Disposition: HOME, SELF-CARE Additional Instructions: You were seen today for chest pain. The exact cause of your pain is unclear. However, based on your cardiac enzyme testing, chest x-ray, and EKG it does not appear that it is from an immediately life-threatening cause at this time. I suspect her pain is likely related to chronic irritation of the nerves in between your rib cage and you should follow-up with a hand touch up painter given how long your pain has been going on. Please return to emergency department immediately if you have worsening of your chest pain, shortness of breath, vomiting, become unable to exert yourself due to pain or difficulty breathing, you pass out, or have any pain that radiates into your arms, jaw, or back. Please also return if you have any additional symptoms that are concerning to you.
== END 2016-11-09 23:00 | disposition home or self-care (01) ==
LOC: ER 17:57
DX: R07.89 Other chest pain (principal); R07.81 Pleurodynia; F17.200 Nicotine dependence, unspecified, uncomplicated; J44.9 Chronic obstructive pulmonary disease, unspecified; J45.909 Unspecified asthma, uncomplicated; Z88.0 Allergy status to penicillin; Z88.6 Allergy status to analgesic agent
CPT/HCPCS: 36415; 71020; 80053; 82550; 82553; 83690; 84484; 85025; 93005; 93010; 99284

== ENCOUNTER 2016-12-04 21:10 | Emergency (ER) | payer OTHER ==
--- NOTE | 2016-12-04 21:23 | ER Document Report ---
ED Medical Screen (RME) - General Stated Complaint: FOOT PAIN Time seen by provider: 21:20 Mode of Arrival: Medic Information source: Patient Notes: 66-year-old female presented to ED for complain of foot pain back pain nausea and vomiting. She came in via EMS. received Zofran in the EMS. Patient states she has a 18-gauge in the antecubital. She has a history of high blood pressure, she has left ankle fracture from 3 weeks ago she is in a Derian wrap with a boot with a large scab on the left lateral forearm she states she fell. I have greeted and performed a rapid initial assessment of this patient. A comprehensive ED assessment and evaluation of the patient, analysis of test results and completion of medical decision making process will be conducted by an additional ED providers. TRAVEL OUTSIDE OF THE [place] IN LAST 30 DAYS: No - Related Data Allergies/Adverse Reactions: Penicillins Allergy (Verified 11/09/16 18:23) prednisone [Prednisone] Allergy (Verified 11/09/16 18:23) codeine phosphate [From Tylenol-Codeine] Adverse Reaction (Verified 11/09/16 18: 23) propoxyphene napsylate [From Darvocet-N 100] Adverse Reaction (Verified 18:23) Past Medical History Pulmonary Medical History: Reports: Hx Asthma, Hx COPD Renal/ Medical History: Denies: Hx Peritoneal Dialysis Psychiatric Medical History: Reports: Hx Depression Past Surgical History: Reports: Hx Appendectomy, Hx Bowel Surgery, Hx Gynecologic Surgery - Immunizations Hx Diphtheria, Pertussis, Tetanus Vaccination: Yes
[2016-12-04 22:49] LABS: ABSOLUTE BASOPHILS # (AUTO) 0.1 10^3/uL (0.0-0.2); ABSOLUTE EOSINOPHILS # (AUTO) 0.1 10^3/uL (0.0-0.6); ABSOLUTE LYMPHOCYTES (AUTO) 2.4 10^3/uL (0.5-4.7); ABSOLUTE MONOCYTES (AUTO) 0.7 10^3/uL (0.1-1.4); ABSOLUTE NEUT (AUTO) 4.7 10^3/uL (1.7-8.2); BASOPHILS % (AUTO) 0.6 % (0-2); EOSINOPHILS % (AUTO) 0.9 % (0-6); HEMATOCRIT 34.2 % (36.0-47.0); HEMOGLOBIN 11.4 g/dL (12.0-15.5); LYMPHOCYTES % (AUTO) 30.5 % (13-45); MEAN CORPUSCULAR HEMOGLOBIN 30.5 pg (27.0-33.4); MEAN CORPUSCULAR HGB CONC 33.2 g/dL (32.0-36.0); MEAN CORPUSCULAR VOLUME 92 fl (80-97); MONOCYTES % (AUTO) 8.7 % (3-13); RED BLOOD COUNT 3.72 10^6/uL (3.72-5.28); RED CELL DISTRIBUTION WIDTH 14.7 % (11.5-14.0); SEGMENTED NEUTROPHILS % (AUTO) 59.3 % (42-78); WHITE BLOOD COUNT 7.9 10^3/uL (4.0-10.5)
[2016-12-04 23:17] LABS: ALANINE AMINOTRANSFERASE 26 U/L (9-52); ALBUMIN 4.4 g/dL (3.5-5.0); ALKALINE PHOSPHATASE 115 U/L (38-126); ANION GAP 10 (5-19); ASPARTATE AMINO TRANSFERASE 44 U/L (14-36); BILIRUBIN,TOTAL 0.6 mg/dL (0.2-1.3); BLOOD UREA NITROGEN 10 mg/dL (7-20); CALCIUM 10.4 mg/dL (8.4-10.2); CARBON DIOXIDE 28 mmol/L (22-30); CHLORIDE 101 mmol/L (98-107); GLUCOSE 108 mg/dL (75-110); POTASSIUM 4.3 mmol/L (3.6-5.0); SODIUM 138.5 mmol/L (137-145); TOTAL PROTEIN 7.4 g/dL (6.3-8.2)
[2016-12-05 01:31] LABS: APPEARANCE,URINE CLEAR; BILIRUBIN,URINE NEGATIVE (NEGATIVE); GLUCOSE, URINE NEGATIVE (NEGATIVE); KETONES,URINE NEGATIVE (NEGATIVE); LEUKOCYTE ESTERASE,URINE NEGATIVE (NEGATIVE); NITRITE,URINE NEGATIVE (NEGATIVE); PROTEIN,URINE NEGATIVE (NEGATIVE); URINE SPECIFIC GRAVITY 1.004; UROBILINOGEN,URINE NEGATIVE mg/dL (<2.0)
--- NOTE | 2016-12-05 03:21 | ER Document Report ---
ED General - General Chief Complaint: nausea/ vomiting Leg pain Stated Complaint: FOOT PAIN Mode of Arrival: Medic Information source: Patient Notes: 66-year-old female presents to the emergency department complaining of persistent left foot pain and chronic upper back/chest pain. Patient reports history of fracture and subsequent surgical repair of left foot. Patient was evaluated yesterday in this ED for similar symptoms. Pt denies new trauma or injury to foot, swelling, redness, bruising, or paresthesias. States has not filled prescriptions from yesterday. Pt reports pain to mid back is worse with movement and radiates around to chest. Reports has had the back/chest pain intermittently over the last 2 years and states has been evaluated multiple times for same symptoms. Denies fever, sob, n/v, diaphoresis, chest pain at rest or without movement. TRAVEL OUTSIDE OF THE [place] IN LAST 30 DAYS: No - HPI Onset/Duration: Intermittent Quality of pain: Achy Severity: Mild Pain Level: 2 Exacerbated by: Movement Similar symptoms previously: Yes Recently seen / treated by doctor: Yes - Related Data Allergies/Adverse Reactions: Penicillins Allergy (Verified 11/09/16 18:23) prednisone [Prednisone] Allergy (Verified 11/09/16 18:23) codeine phosphate [From Tylenol-Codeine] Adverse Reaction (Verified 11/09/16 18: 23) propoxyphene napsylate [From Darvocet-N 100] Adverse Reaction (Verified 18:23) Past Medical History - General Information source: Patient - Social History Smoking Status: Smoker,Current Status Unk Frequency of alcohol use: None Drug Abuse: None Lives with: Family Family History: None Patient has suicidal ideation: No Patient has homicidal ideation: No - Past Medical History Cardiac Medical History: Reports: Hx Hypertension Pulmonary Medical History: Reports: Hx Asthma, Hx COPD Renal/ Medical History: Denies: Hx Peritoneal Dialysis Psychiatric Medical History: Reports: Hx Depression Past Surgical History: Reports: Hx Appendectomy, Hx Bowel Surgery, Hx Gynecologic Surgery, Hx Orthopedic Surgery - Immunizations Hx Diphtheria, Pertussis, Tetanus Vaccination: Yes Review of Systems - Review of Systems Constitutional: No symptoms reported EENT: No symptoms reported Cardiovascular: See HPI Respiratory: See HPI Gastrointestinal: No symptoms reported Genitourinary: No symptoms reported Female Genitourinary: No symptoms reported Musculoskeletal: See HPI Skin: No symptoms reported Hematologic/Lymphatic: No symptoms reported Neurological/Psychological: No symptoms reported -: Yes All other systems reviewed and negative Physical Exam - Vital signs Vitals: Temp Pulse Resp BP Pulse Ox 97.4 F 82 16 115/87 H 100 12/04/16 21:18 12/04/16 21:18 12/04/16 21:18 12/04/16 21:18 12/04/16 21:18 Interpretation: Normal - General General appearance: Appears well, Alert In distress: None - HEENT Head: Normocephalic, Atraumatic Eyes: Normal Eyelashes: Normal Pupils: PERRL Ears: Normal External canal: Normal Tympanic membrane: Normal Sinus: Normal Nasal: Normal Mouth/Lips: Normal Mucous membranes: Normal, Moist Pharynx: Normal Neck: Normal. No: Anterior cervical chain, Posterior cervical chain, Lymphadenopathy, Meningismus, Subcutaneous emphysema - Respiratory Respiratory status: No respiratory distress Chest status: Tender - Mild tenderness with palpation to middle lower anterior chest wall/sternal area. No instability or deformity, swelling, crepitus, erythema, or warmth. Patient reports this is the pain she has had intermittently over the last 2 years., Pain on movement. No: Nontender, Chest mass, Ecchymosis, No pleuritic chest pain, Pain with cough, Pain with deep breathing, Wounds, Accessory muscle use, Prolonged expirations, Splinting, Other Breath sounds: Normal - CTAB Chest palpation: Tender. No: Normal, Flail segment, [place] frothy sputum, Purulent sputum, Subcutaneous emphysema, Sucking chest wound, Ecchymosis, Wounds , Other - Cardiovascular Rhythm: Regular Heart sounds: Normal auscultation Murmur: No Pulses: Normal: Radial, Posterior tibial, Dorsalis pedis Normal capillary refill: Yes - Abdominal Inspection: Normal Distension: No distension Bowel sounds: Normal Tenderness: Nontender Organomegaly: No organomegaly - Back Back: Normal, Nontender - Extremities General upper extremity: Normal inspection, Nontender, Normal color, Normal ROM , Normal strength, Normal temperature General lower extremity: Normal inspection, Nontender, Normal color, Normal ROM , Normal strength, Normal temperature, Normal weight bearing, Other - Patient has splint to left lower leg placed postsurgically. Gross motor and neurovascular function appears intact at this time with no suggestion of infection or postsurgical complication at this time. - Neurological Neuro grossly intact: Yes Cognition: Normal Orientation: AAOx4 [place] Coma Scale Eye Opening: Spontaneous [place] Coma Scale Verbal: Oriented [place] Coma Scale Motor: Obeys Commands Benito Coma Scale Total: 15 Speech: Normal Motor strength normal: LUE, RUE, LLE, RLE Sensory: Normal - Psychological Associated symptoms: Normal affect, Normal mood - Skin Skin Temperature: Warm Skin Moisture: Dry Skin Color: Normal Course - Re-evaluation Re-evalutation: 12/05/16 03:45 Patient hemodynamically stable, in no distress, afebrile, neurologically intact. The patient's back/chest pain is not suggestive of pulmonary embolus, cardiac ischemia, aortic dissection, or other serious etiology. Given the extremely low risk of these diagnoses further testing and evaluation for these possibilities does not appear to be indicated at this time. Patient appears stable for discharge and agrees with home care, follow-up, and ED return precautions. - Vital Signs Vital signs: Temp Pulse Resp BP Pulse Ox 97.4 F 82 16 115/87 H 100 12/04/16 21:18 12/04/16 21:18 12/04/16 21:18 12/04/16 21:18 12/04/16 21:18 - Laboratory Result Diagrams: 12/04/16 22:30 12/04/16 22:30 Laboratory results interpreted by me: 12/04/16 12/04/16 12/05/16 22:30 22:30 01:19 Hgb 11.4 L Hct 34.2 L RDW 14.7 H Calcium 10.4 H AST 44 H Urine Blood SMALL H - EKG Interpretation by Ia EKG shows normal: Sinus rhythm, [place], Intervals, QRS Complexes, ST-T Waves Rate: Normal When compared to previous EKG there are: No significant change Discharge - Discharge Clinical Impression: Left foot pain, Chest wall pain, chronic Condition: Stable Disposition: HOME, SELF-CARE Instructions: Chest Wall Pain ([facility]), Anti-Inflammatory Medication ([facility]), Elevate the Injury ([facility]) Additional Instructions: Fill the prescriptions you were prescribed yesterday in the emergency department and take as directed if needed. Keep your appointment today with orthopedics. Follow-up with your primary care provider this week. Return to the emergency department for any worsening symptoms or concerns.
[2016-12-05 06:23] VITALS: BP 122/76
--- NOTE | 2016-12-05 11:17 | EKG REPORT ---
SEVERITY:- ABNORMAL ECG - SINUS RHYTHM LEFT VENTRICULAR HYPERTROPHY : Confirmed by: Harriet Cardozo 05-Dec-2016 11:17:00
== END 2016-12-05 03:55 | disposition home or self-care (01) ==
LOC: ER 21:10
DX: S92.902D Unspecified fracture of left foot, subsequent encounter for fracture with routine healing (principal); M79.672 Pain in left foot; X58.XXXD Exposure to other specified factors, subsequent encounter; G89.29 Other chronic pain; R07.9 Chest pain, unspecified; M54.9 Dorsalgia, unspecified; I10 Essential (primary) hypertension; J44.9 Chronic obstructive pulmonary disease, unspecified; J45.909 Unspecified asthma, uncomplicated; Z98.890 Other specified postprocedural states; Z88.0 Allergy status to penicillin; Z88.8 Allergy status to other drugs, medicaments and biological substances
CPT/HCPCS: 36415; 80053; 81001; 85025; 93005; 93010; 99284

== ENCOUNTER 2016-12-11 15:29 | Emergency (ER) | payer OTHER ==
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
[2016-12-11] MEDS ORDERED: ONDANSETRON 4 MG TAB.RAPDIS PO ONE (22:23)
[2016-12-11] MEDS ORDERED: OXYCODONE-ACETAMINOPHEN 5-325 MG TABLET PO ONE (22:23)
[2016-12-12 00:13] LABS: ABSOLUTE EOSINOPHILS # (AUTO) 0.1 10^3/uL (0.0-0.6); ABSOLUTE LYMPHOCYTES (AUTO) 2.3 10^3/uL (0.5-4.7); ABSOLUTE MONOCYTES (AUTO) 0.6 10^3/uL (0.1-1.4); BASOPHILS % (AUTO) 0.4 % (0-2); EOSINOPHILS % (AUTO) 1.2 % (0-6); HEMATOCRIT 36.9 % (36.0-47.0); HGB HCT DIFFERENCE -0.9; LYMPHOCYTES % (AUTO) 28.2 % (13-45); MEAN CORPUSCULAR HGB CONC 32.6 g/dL (32.0-36.0); MEAN CORPUSCULAR VOLUME 92 fl (80-97); MONOCYTES % (AUTO) 7.9 % (3-13); RED BLOOD COUNT 4.02 10^6/uL (3.72-5.28); RED CELL DISTRIBUTION WIDTH 14.1 % (11.5-14.0); SEGMENTED NEUTROPHILS % (AUTO) 62.3 % (42-78)
[2016-12-12 00:24] LABS: ALANINE AMINOTRANSFERASE 23 U/L (9-52); ALBUMIN 4.6 g/dL (3.5-5.0); ALKALINE PHOSPHATASE 148 U/L (38-126); ANION GAP 14 (5-19); ASPARTATE AMINO TRANSFERASE 43 U/L (14-36); BILIRUBIN,DIRECT 0.2 mg/dL (0.0-0.4); BILIRUBIN,TOTAL 0.6 mg/dL (0.2-1.3); BLOOD UREA NITROGEN 9 mg/dL (7-20); CALCIUM 10.6 mg/dL (8.4-10.2); CARBON DIOXIDE 28 mmol/L (22-30); CHLORIDE 99 mmol/L (98-107); CREATINE KINASE 45 U/L (30-135); CREATININE RESULT 0.81 mg/dL (0.52-1.25); GLUCOSE 111 mg/dL (75-110); POTASSIUM 4.5 mmol/L (3.6-5.0)
[2016-12-12 02:47] VITALS: BP 135/78
--- NOTE | 2016-12-12 08:10 | EKG REPORT ---
SEVERITY:- ABNORMAL ECG - SINUS RHYTHM CONSIDER LEFT VENTRICULAR HYPERTROPHY : Confirmed by: Luiz Felipe MD 12-Dec-2016 08:08:57
== END 2016-12-12 02:48 | disposition home or self-care (01) ==
LOC: ER 15:29
DX: G89.29 Other chronic pain (principal); R07.89 Other chest pain; R07.1 Chest pain on breathing; J44.9 Chronic obstructive pulmonary disease, unspecified; I10 Essential (primary) hypertension; R05 Cough; R11.0 Nausea; F17.200 Nicotine dependence, unspecified, uncomplicated; Z88.0 Allergy status to penicillin; Z88.8 Allergy status to other drugs, medicaments and biological substances
CPT/HCPCS: 93005; 99285; 36415; 82553; 82550; 85025; 80053; 84484; 71020; 93010; S0119

== ENCOUNTER 2016-12-18 03:02 | Emergency (ER) | payer OTHER ==
[2016-12-18] MEDS ORDERED: CLONIDINE 0.1 MG/24 HR PATCH.TDWK TD ONE (06:43)
--- NOTE | 2016-12-18 07:11 | ER Document Report ---
ED General - General Chief Complaint: Anxiety Stated Complaint: POSSIBLE MEDICATION WITHDRAWLS Mode of Arrival: Ambulatory Information source: Patient Notes: 66-year-old female who has been on narcotics since August presents with complaints of withdrawal. Patient notes she is nauseous anxious jittery. Patient has now been here multiple times over the past 2 weeks admits chest wall tenderness TRAVEL OUTSIDE OF THE [place] IN LAST 30 DAYS: No - HPI Onset: Other - 2 week duration Onset/Duration: Persistent Quality of pain: Sharp Severity: Mild Pain Level: 1 Associated symptoms: Body/muscle aches, Nausea, Vomiting Exacerbated by: Denies Relieved by: Denies Similar symptoms previously: Yes Recently seen / treated by doctor: Yes - Related Data Allergies/Adverse Reactions: Penicillins Allergy (Verified 12/11/16 16:18) prednisone [Prednisone] Allergy (Verified 12/11/16 16:18) codeine phosphate [From Tylenol-Codeine] Adverse Reaction (Verified 12/11/16 16: 18) propoxyphene napsylate [From Darvocet-N 100] Adverse Reaction (Verified 16:18) Past Medical History - Social History Smoking Status: Current Every Day Smoker Cigarette use (# per day): Yes Chew tobacco use (# tins/day): No Smoking Education Provided: Yes - Patient counselled regarding cessation for 4 minutes Frequency of alcohol use: None Drug Abuse: None Family History: Reviewed & Not Pertinent - Past Medical History Cardiac Medical History: Reports: Hx Hypertension Pulmonary Medical History: Reports: Hx Asthma, Hx COPD Renal/ Medical History: Denies: Hx Peritoneal Dialysis Psychiatric Medical History: Reports: Hx Anxiety, Hx Depression Past Surgical History: Reports: Hx Appendectomy, Hx Bowel Surgery, Hx Gynecologic Surgery, Hx Orthopedic Surgery - Immunizations Hx Diphtheria, Pertussis, Tetanus Vaccination: Yes Review of Systems - Review of Systems Notes: REVIEW OF SYSTEMS: CONSTITUTIONAL : Denies fever, chills, or sweats. Denies recent illness. EENT: Denies eye, ear, throat, or mouth pain or symptoms. Denies nasal or sinus congestion or discharge. Denies throat, tongue, or mouth swelling or difficulty swallowing. CARDIOVASCULAR: Admits to chest pain RESPIRATORY: Denies cough, cold, or chest congestion. Denies shortness of breath, difficulty breathing, or wheezing. GASTROINTESTINAL: Admits to nausea vomiting GENITOURINARY: Denies difficulty urinating, painful urination, burning, frequency, blood in urine, or discharge. FEMALE GENITOURINARY: Denies vaginal bleeding, heavy or abnormal periods, irregular periods. Denies vaginal discharge or odor. MUSCULOSKELETAL: Denies back or neck pain or stiffness. Denies joint pain or swelling. SKIN: Denies rash, lesions or sores. HEMATOLOGIC : Denies easy bruising or bleeding. LYMPHATIC: Denies swollen, enlarged glands. NEUROLOGICAL: Denies confusion or altered mental status. Denies passing out or loss of consciousness. Denies dizziness or lightheadedness. Denies headache. Denies weakness or paralysis or loss of use of either side. Denies problems with gait or speech. Denies sensory loss, numbness, or tingling. Denies seizures. PSYCHIATRIC: Admits to feeling anxious jittery ALL OTHER SYSTEMS REVIEWED AND NEGATIVE. Dictation was performed using [employer] voice recognition software PHYSICAL EXAMINATION: GENERAL: Well-appearing, well-nourished and in no acute distress. HEAD: Atraumatic, normocephalic. EYES: Pupils equal round and reactive to light, extraocular movements intact, conjunctiva are normal. ENT: Nares patent, oropharynx clear without exudates. Moist mucous membranes. NECK: Normal range of motion, supple without lymphadenopathy LUNGS: Breath sounds clear to auscultation bilaterally and equal. No wheezes rales or rhonchi. HEART: Regular rate and rhythm without murmurs ABDOMEN: Soft, nontender, nondistended abdomen. No guarding, no rebound. No masses appreciated. Female : deferred Musculoskeletal: Normal range of motion, no pitting or edema. No cyanosis. Reproducible chest wall tenderness on palpation NEUROLOGICAL: Cranial nerves grossly intact. Normal speech, normal gait. Normal sensory, motor exams PSYCH: Normal mood, normal affect. SKIN: Warm, Dry, normal turgor, no rashes or lesions noted. Physical Exam - Vital signs Vitals: Temp Pulse Resp BP Pulse Ox 98.2 F 54 L 14 131/66 H 98 12/18/16 03:15 12/18/16 03:15 12/18/16 03:15 12/18/16 03:15 12/18/16 03:15 Course - Re-evaluation Re-evalutation: 12/18/16 17:40 Patient believes that she is withdrawing from narcotics that she has been on since August. Given the patient otherwise looks well is in no distress I will discharge her home at her request with clonidine, otherwise she is stable for discharge After performing a Medical Screening Examination, I estimate there is LOW risk for ACUTE CORONARY SYNDROME, RESPIRATORY FAILURE, SEPSIS OR MENINGITIS, thus I consider the discharge disposition reasonable. The patient and I have discussed the diagnosis and risks, and we agree with discharging home with close follow- up. We also discussed returning to the Emergency Department immediately if new or worsening symptoms occur. We have discussed the symptoms which are most concerning (e.g., changing or worsening pain, trouble swallowing or breathing, neck stiffness, fever) that necessitate immediate return. 12/18/16 18:41 - Vital Signs Vital signs: Temp Pulse Resp BP Pulse Ox 98.2 F 61 18 153/74 H 98 12/18/16 03:29 12/18/16 07:06 12/18/16 07:06 12/18/16 07:06 12/18/16 07:06 Discharge - Discharge Clinical Impression: Narcotic withdrawal, Chest wall pain, Encounter for smoking cessation counseling Condition: Stable Disposition: HOME, SELF-CARE Additional Instructions: Follow up with your physician tomorrow for further care or return to the ED IMMEDIATELY if symptoms worsen or new concerns occur Prescriptions: Clonidine 1 each TD ONCE PRN #1 [email or web address] PRN Reason:
[2016-12-18 07:23] VITALS: BP 153/74
== END 2016-12-18 07:25 | disposition home or self-care (01) ==
LOC: ER 03:02
DX: F11.23 Opioid dependence with withdrawal (principal); F41.9 Anxiety disorder, unspecified; R11.2 Nausea with vomiting, unspecified; R07.89 Other chest pain; J44.9 Chronic obstructive pulmonary disease, unspecified; F17.210 Nicotine dependence, cigarettes, uncomplicated; Z71.6 Tobacco abuse counseling; Z88.0 Allergy status to penicillin; Z88.8 Allergy status to other drugs, medicaments and biological substances; Z88.5 Allergy status to narcotic agent
CPT/HCPCS: 99406; 99283; J3490

== ENCOUNTER 2017-01-11 22:04 | Emergency (ER) | payer OTHER ==
[2017-01-11 22:55] LABS: ABSOLUTE EOSINOPHILS # (AUTO) 0.1 10^3/uL (0.0-0.6); ABSOLUTE LYMPHOCYTES (AUTO) 2.6 10^3/uL (0.5-4.7); ABSOLUTE MONOCYTES (AUTO) 0.5 10^3/uL (0.1-1.4); ABSOLUTE NEUT (AUTO) 2.8 10^3/uL (1.7-8.2); BASOPHILS % (AUTO) 0.6 % (0-2); EOSINOPHILS % (AUTO) 1.2 % (0-6); HEMATOCRIT 34.8 % (36.0-47.0); HEMOGLOBIN 11.6 g/dL (12.0-15.5); LYMPHOCYTES % (AUTO) 42.9 % (13-45); MEAN CORPUSCULAR HEMOGLOBIN 29.6 pg (27.0-33.4); MEAN CORPUSCULAR HGB CONC 33.3 g/dL (32.0-36.0); MEAN CORPUSCULAR VOLUME 89 fl (80-97); MONOCYTES % (AUTO) 8.7 % (3-13); RED BLOOD COUNT 3.91 10^6/uL (3.72-5.28); RED CELL DISTRIBUTION WIDTH 14.2 % (11.5-14.0); SEGMENTED NEUTROPHILS % (AUTO) 46.6 % (42-78)
[2017-01-11 23:07] LABS: ALANINE AMINOTRANSFERASE 19 U/L (9-52); ALBUMIN 4.3 g/dL (3.5-5.0); ALKALINE PHOSPHATASE 109 U/L (38-126); ANION GAP 15 (5-19); ASPARTATE AMINO TRANSFERASE 36 U/L (14-36); BILIRUBIN,DIRECT 0.2 mg/dL (0.0-0.4); BILIRUBIN,TOTAL 0.4 mg/dL (0.2-1.3); BLOOD UREA NITROGEN 12 mg/dL (7-20); CALCIUM 9.5 mg/dL (8.4-10.2); CARBON DIOXIDE 21 mmol/L (22-30); CHLORIDE 100 mmol/L (98-107); CREATININE RESULT 0.86 mg/dL (0.52-1.25); GLUCOSE 95 mg/dL (75-110); LIPASE 426.7 U/L (23-300); POTASSIUM 3.8 mmol/L (3.6-5.0); SODIUM 135.6 mmol/L (137-145); TOTAL PROTEIN 7.1 g/dL (6.3-8.2)
[2017-01-12] MEDS ORDERED: NORMAL SALINE 1000 ML 1,000 ML IV ONE (01:39)
[2017-01-12] MEDS ORDERED: ONDANSETRON HCL INJ/PF 4 MG/2 ML SDV IV ONE ×2 (01:39→05:14)
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
[2017-01-12 03:21] LABS: APPEARANCE,URINE SLIGHTLY-CLOUDY; BILIRUBIN,URINE SMALL (NEGATIVE); GLUCOSE, URINE NEGATIVE (NEGATIVE); KETONES,URINE NEGATIVE (NEGATIVE); LEUKOCYTE ESTERASE,URINE NEGATIVE (NEGATIVE); NITRITE,URINE NEGATIVE (NEGATIVE); PROTEIN,URINE NEGATIVE (NEGATIVE); URINE SPECIFIC GRAVITY 1.017; UROBILINOGEN,URINE NEGATIVE mg/dL (<2.0)
[2017-01-12 06:19] VITALS: BP 147/80
== END 2017-01-12 06:19 | disposition home or self-care (01) ==
LOC: ER 22:04
DX: R11.2 Nausea with vomiting, unspecified (principal); R19.7 Diarrhea, unspecified; R07.81 Pleurodynia; R05 Cough; F17.200 Nicotine dependence, unspecified, uncomplicated
CPT/HCPCS: 96376; 99284; 96374; 36415; 87045; 87205; 83690; 85025; 80053; 81001; 87493 ×2; 71020; 76705; J2405; J7030

== ENCOUNTER 2017-02-07 16:18 | Emergency (ER) | payer OTHER ==
[2017-02-07 16:54] VITALS: BP 161/88
--- NOTE | 2017-02-08 17:45 | EKG REPORT ---
SEVERITY:- ABNORMAL ECG - SINUS RHYTHM LEFT ATRIAL ABNORMALITY PROBABLE LVH WITH SECONDARY REPOL ABNRM : Confirmed by: Flori Barone MD 08-Feb-2017 17:44:37
== END 2017-02-07 19:00 | disposition left against medical advice (07) ==
LOC: ER 16:18
DX: Z53.9 Procedure and treatment not carried out, unspecified reason (principal); R07.9 Chest pain, unspecified
CPT/HCPCS: 93005; 93010

== ENCOUNTER 2017-02-08 10:32 | Emergency (ER) | payer OTHER ==
[2017-02-08 10:56] VITALS: BP 149/103
[2017-02-08] MEDS ORDERED: NORMAL SALINE 1000 ML 1,000 ML IV ONE (11:18)
[2017-02-08] MEDS ORDERED: ASPIRIN 325 MG TABLET PO ONE (11:19)
--- NOTE | 2017-02-08 11:20 | ER Document Report ---
ED Medical Screen (RME) - General Chief Complaint: Chest Pain Stated Complaint: CHEST PAIN Time Seen by Provider: 02/08/17 11:17 Mode of Arrival: Ambulatory Information source: Patient TRAVEL OUTSIDE OF THE [place] IN LAST 30 DAYS: No - HPI Patient complains to provider of: cp Onset: Yesterday - Pt. seen here yesterday for CP but left before she was evaluated. She returns again this am with worsening CP - Related Data Allergies/Adverse Reactions: Penicillins Allergy (Verified 02/08/17 10:53) prednisone [Prednisone] Allergy (Verified 02/08/17 10:53) codeine phosphate [From Tylenol-Codeine] Adverse Reaction (Verified 02/08/17 10: 53) propoxyphene napsylate [From Darvocet-N 100] Adverse Reaction (Verified 10:53) Past Medical History - Past Medical History Cardiac Medical History: Reports: Hx Hypertension Pulmonary Medical History: Reports: Hx Asthma, Hx COPD Renal/ Medical History: Denies: Hx Peritoneal Dialysis Psychiatric Medical History: Reports: Hx Anxiety, Hx Depression Past Surgical History: Reports: Hx Appendectomy, Hx Bowel Surgery, Hx Gynecologic Surgery, Hx Orthopedic Surgery - Immunizations Hx Diphtheria, Pertussis, Tetanus Vaccination: Yes Physical Exam - Vital signs Vitals: Temp Pulse Resp BP Pulse Ox 97.8 F 113 H 24 H 149/103 H 98 02/08/17 10:55 02/08/17 10:55 02/08/17 10:55 02/08/17 10:55 02/08/17 10:55 Course - Vital Signs Vital signs: Temp Pulse Resp BP Pulse Ox 97.8 F 113 H 24 H 149/103 H 98 02/08/17 10:55 02/08/17 10:55 02/08/17 10:55 02/08/17 10:55 02/08/17 10:55
[2017-02-08 12:05] LABS: ABSOLUTE EOSINOPHILS # (AUTO) 0.1 10^3/uL (0.0-0.6); ABSOLUTE LYMPHOCYTES (AUTO) 1.8 10^3/uL (0.5-4.7); ABSOLUTE MONOCYTES (AUTO) 0.5 10^3/uL (0.1-1.4); ABSOLUTE NEUT (AUTO) 4.2 10^3/uL (1.7-8.2); BASOPHILS % (AUTO) 0.4 % (0-2); EOSINOPHILS % (AUTO) 0.8 % (0-6); HEMATOCRIT 37.5 % (36.0-47.0); HEMOGLOBIN 12.6 g/dL (12.0-15.5); HGB HCT DIFFERENCE 0.3; LYMPHOCYTES % (AUTO) 27.8 % (13-45); MEAN CORPUSCULAR HEMOGLOBIN 29.5 pg (27.0-33.4); MEAN CORPUSCULAR HGB CONC 33.6 g/dL (32.0-36.0); MEAN CORPUSCULAR VOLUME 88 fl (80-97); MONOCYTES % (AUTO) 7.8 % (3-13); RED BLOOD COUNT 4.27 10^6/uL (3.72-5.28); RED CELL DISTRIBUTION WIDTH 15.5 % (11.5-14.0); SEGMENTED NEUTROPHILS % (AUTO) 63.2 % (42-78); WHITE BLOOD COUNT 6.6 10^3/uL (4.0-10.5)
[2017-02-08 12:27] LABS: ALANINE AMINOTRANSFERASE 27 U/L (9-52); ALBUMIN 5.1 g/dL (3.5-5.0); ALKALINE PHOSPHATASE 151 U/L (38-126); ANION GAP 13 (5-19); ASPARTATE AMINO TRANSFERASE 48 U/L (14-36); BILIRUBIN,DIRECT 0.3 mg/dL (0.0-0.4); BILIRUBIN,TOTAL 0.7 mg/dL (0.2-1.3); BLOOD UREA NITROGEN 20 mg/dL (7-20); CALCIUM 10.4 mg/dL (8.4-10.2); CARBON DIOXIDE 24 mmol/L (22-30); CHLORIDE 103 mmol/L (98-107); CREATINE KINASE 51 U/L (30-135); GLUCOSE 107 mg/dL (75-110); POTASSIUM 4.6 mmol/L (3.6-5.0); TOTAL PROTEIN 8.4 g/dL (6.3-8.2)
[2017-02-08 12:44] LABS: CREATINE KINASE MB 1.25 ng/mL (<4.55)
[2017-02-08 12:48] LABS: TROPONIN I < 0.012 ng/mL
--- NOTE | 2017-02-08 17:44 | EKG REPORT ---
SEVERITY:- ABNORMAL ECG - SINUS TACHYCARDIA RIGHT ATRIAL ABNORMALITY PROBABLE LVH WITH SECONDARY REPOL ABNRM : Confirmed by: Flori Barone MD 08-Feb-2017 17:44:10
== END 2017-02-08 13:10 | disposition left against medical advice (07) ==
LOC: ER 10:32
DX: R07.9 Chest pain, unspecified (principal); I10 Essential (primary) hypertension; J44.9 Chronic obstructive pulmonary disease, unspecified; Z88.0 Allergy status to penicillin; Z88.8 Allergy status to other drugs, medicaments and biological substances; Z53.20 Procedure and treatment not carried out because of patient's decision for unspecified reasons
CPT/HCPCS: 93005; 99281; 96360; 36415; 82553; 82550; 85025; 80053; 84484; 71020; 93010; J7030

== ENCOUNTER 2017-02-08 19:28 | Emergency (ER) | payer OTHER ==
[2017-02-08] MEDS ORDERED: ASPIRIN 81 MG TABLET, CHEWABLE PO ONE (20:13)
[2017-02-08] MEDS ORDERED: FAMOTIDINE 20 MG TABLET PO ONE (20:14)
[2017-02-08] MEDS ORDERED: ONDANSETRON 4 MG TAB.RAPDIS PO ONE (20:15)
--- NOTE | 2017-02-08 20:18 | ER Document Report ---
ED General - General Chief Complaint: Chest Pain Stated Complaint: CHEST PAIN Time Seen by Provider: 02/08/17 20:05 Notes: Patient is a 66-year-old female comes emergency department for chief complaint of chest pain, she states the pain seems to go into her back and neck, around her side underneath the left breast into her left upper and middle abdomen. Symptoms started 3 days ago, she states symptoms are worse with eating, she states she has vomited 3 times today, she denies hematemesis. She denies lower abdominal pain. Patient denies any alcohol, she smokes, past medical history of hernia repair, bowel obstruction, hypertension. Patient denies personal cardiac history, states she has positive family history. TRAVEL OUTSIDE OF THE [place] IN LAST 30 DAYS: No - Related Data Allergies/Adverse Reactions: Penicillins Allergy (Verified 02/08/17 10:53) prednisone [Prednisone] Allergy (Verified 02/08/17 10:53) codeine phosphate [From Tylenol-Codeine] Adverse Reaction (Verified 02/08/17 10: 53) propoxyphene napsylate [From Darvocet-N 100] Adverse Reaction (Verified 10:53) Home Medications: Current Home Medications Propranolol HCl [Inderal 20 mg Tablet] 20 mg PO QID 02/08/17 [History] Past Medical History - General Information source: Patient - Social History Smoking Status: Never Smoker Frequency of alcohol use: None Drug Abuse: None Lives with: Family Family History: Reviewed & Not Pertinent Patient has suicidal ideation: No Patient has homicidal ideation: No - Past Medical History Cardiac Medical History: Reports: Hx Hypertension Pulmonary Medical History: Reports: Hx Asthma, Hx COPD Renal/ Medical History: Denies: Hx Peritoneal Dialysis Psychiatric Medical History: Reports: Hx Anxiety, Hx Depression Past Surgical History: Reports: Hx Appendectomy, Hx Bowel Surgery, Hx Gynecologic Surgery, Hx Orthopedic Surgery - Immunizations Hx Diphtheria, Pertussis, Tetanus Vaccination: Yes Review of Systems - Review of Systems Constitutional: No symptoms reported EENT: No symptoms reported Cardiovascular: No symptoms reported Respiratory: No symptoms reported Gastrointestinal: See HPI Genitourinary: No symptoms reported Female Genitourinary: No symptoms reported Musculoskeletal: No symptoms reported Skin: No symptoms reported Hematologic/Lymphatic: No symptoms reported Neurological/Psychological: No symptoms reported Physical Exam - Vital signs Vitals: Temp Pulse Resp BP Pulse Ox 97.8 F 95 18 149/85 H 100 02/08/17 19:48 02/08/17 19:48 02/08/17 19:48 02/08/17 19:48 02/08/17 19:48 Interpretation: Normal - General General appearance: Appears well, Alert In distress: None - Patient with weathered and slightly disheveled appearance but she does not appear to be in any distress - HEENT Head: Normocephalic, Atraumatic Eyes: Normal Conjunctiva: Normal Extraocular movements intact: Yes Eyelashes: Normal Pupils: PERRL Mouth/Lips: Normal Mucous membranes: Normal Pharynx: Normal Neck: Normal - Respiratory Respiratory status: No respiratory distress Chest status: Nontender Breath sounds: Normal. No: Decreased air movement, Wheezing Chest palpation: Normal - Cardiovascular Rhythm: Regular. No: Tachycardia Heart sounds: Normal auscultation, S1 appreciated, S2 appreciated Murmur: No - Abdominal Inspection: Normal Distension: No distension Bowel sounds: Normal Tenderness: Tender - epigastric tenderness, otherwise mild generalized tenderness; no guarding Organomegaly: No organomegaly - Back Back: Normal, Nontender. No: Tender - Extremities General upper extremity: Normal inspection, Nontender, Normal color, Normal ROM , Normal temperature General lower extremity: Normal inspection, Nontender, Normal color, Normal ROM , Normal temperature, Normal weight bearing. No: Remedios's sign - Neurological Neuro grossly intact: Yes Cognition: Normal Orientation: AAOx4 [place] Coma Scale Eye Opening: Spontaneous [place] Coma Scale Verbal: Oriented [place] Coma Scale Motor: Obeys Commands [place] Coma Scale Total: 15 Speech: Normal Motor strength normal: LUE, RUE, LLE, RLE Sensory: Normal - Psychological Associated symptoms: Normal affect, Normal mood - Skin Skin Temperature: Warm Skin Moisture: Dry Skin Color: Normal Course - Re-evaluation Re-evalutation: Initial chest pain protocol was performed because of patient's complaint of chest pain, however patient denies chest pain when I examine her, she states it is only in her upper abdomen and radiating around her abdomen towards her back. She denies shortness of breath. She states symptoms are worse with eating. Symptoms have been ongoing for several days. CBC, chemistry, unremarkable. Lipase is barely above upper limit, ultrasound with no abnormalities noted including no obstructive findings, acute abdominal series does not show any evidence of bowel obstruction or other abnormalities. Patient was given Pepcid and Zofran, on reevaluation she states she feels much better. Patient is asking to leave. She declined additional workup including repeat cardiac enzyme. Patient has been having symptoms for several days, is not having any chest pain, had a negative cardiac enzyme, denies any cardiac disease history. Patient provided with nausea medication, H2 marco, discussed follow-up, discussed return precautions including chest pain, worsening abdominal pain, shortness of breath, fever, or any other concerning symptoms. Patient states understanding and agreement. - Vital Signs Vital signs: Temp Pulse Resp BP Pulse Ox 97.8 F 95 19 134/67 H 98 02/08/17 19:48 02/08/17 19:48 02/08/17 23:00 02/08/17 21:02 02/08/17 23:00 - Laboratory Result Diagrams: 02/08/17 20:54 02/08/17 20:54 Laboratory results interpreted by me: 02/08/17 02/08/17 02/08/17 20:54 20:54 22:05 Hgb 11.9 L Hct 35.2 L RDW 15.4 H Carbon Dioxide 19 L Est GFR (Non-Af Amer) 59 L AST 40 H Alkaline Phosphatase 139 H Lipase 362.3 H Urine Blood SMALL H Discharge - Discharge Clinical Impression: Epigastric pain Vomiting Qualifiers: Vomiting type: unspecified Vomiting Intractability: non-intractable Nausea presence: unspecified Qualified Code(s): R11.10 - Vomiting, unspecified Condition: Stable Disposition: HOME, SELF-CARE Additional Instructions: The ultrasound does not show any acute abnormality, your workup today is nonspecific, I suspect your symptoms are from your stomach and upper gastrointestinal system, take the Pepcid and nausea medication as prescribed, follow-up closely with primary care, return to the emergency department for any concerning or worsening symptoms including uncontrolled vomiting, chest pain, shortness of breath, fever, or any other concerning symptoms. Prescriptions: Famotidine [Pepcid 20 mg Tablet] 20 mg PO BID #14 tablet Promethazine HCl [Phenergan 25 mg Tablet] 1 - 2 tab PO Q6H PRN #15 tablet PRN Reason:
[2017-02-08 21:05] LABS: ABSOLUTE LYMPHOCYTES (AUTO) 2.1 10^3/uL (0.5-4.7); ABSOLUTE MONOCYTES (AUTO) 0.5 10^3/uL (0.1-1.4); ABSOLUTE NEUT (AUTO) 2.6 10^3/uL (1.7-8.2); BASOPHILS % (AUTO) 0.2 % (0-2); EOSINOPHILS % (AUTO) 0.8 % (0-6); HEMATOCRIT 35.2 % (36.0-47.0); HEMOGLOBIN 11.9 g/dL (12.0-15.5); HGB HCT DIFFERENCE 0.5; LYMPHOCYTES % (AUTO) 39.7 % (13-45); MEAN CORPUSCULAR HEMOGLOBIN 29.8 pg (27.0-33.4); MEAN CORPUSCULAR HGB CONC 33.8 g/dL (32.0-36.0); MEAN CORPUSCULAR VOLUME 88 fl (80-97); MONOCYTES % (AUTO) 9.1 % (3-13); RED BLOOD COUNT 3.99 10^6/uL (3.72-5.28); RED CELL DISTRIBUTION WIDTH 15.4 % (11.5-14.0); SEGMENTED NEUTROPHILS % (AUTO) 50.2 % (42-78); WHITE BLOOD COUNT 5.2 10^3/uL (4.0-10.5)
[2017-02-08 21:27] LABS: ALANINE AMINOTRANSFERASE 43 U/L (9-52); ALBUMIN 4.4 g/dL (3.5-5.0); ALKALINE PHOSPHATASE 139 U/L (38-126); ANION GAP 16 (5-19); ASPARTATE AMINO TRANSFERASE 40 U/L (14-36); BILIRUBIN,DIRECT 0.3 mg/dL (0.0-0.4); BILIRUBIN,TOTAL 0.8 mg/dL (0.2-1.3); BLOOD UREA NITROGEN 18 mg/dL (7-20); CALCIUM 9.8 mg/dL (8.4-10.2); CARBON DIOXIDE 19 mmol/L (22-30); CHLORIDE 105 mmol/L (98-107); CREATINE KINASE 56 U/L (30-135); CREATININE RESULT 0.95 mg/dL (0.52-1.25); GLUCOSE 92 mg/dL (75-110); LIPASE 362.3 U/L (23-300); POTASSIUM 3.8 mmol/L (3.6-5.0); SODIUM 139.6 mmol/L (137-145); TOTAL PROTEIN 7.5 g/dL (6.3-8.2)
[2017-02-08 21:28] LABS: ALCOHOL < 10 mg/dL (NONE DETECTED)
[2017-02-08 21:39] LABS: TROPONIN I < 0.012 ng/mL
[2017-02-08 22:31] LABS: AMORPHOUS SEDIMENT,URINE TRACE /HPF; APPEARANCE,URINE SLIGHTLY-CLOUDY; BILIRUBIN,URINE NEGATIVE (NEGATIVE); GLUCOSE, URINE NEGATIVE (NEGATIVE); KETONES,URINE NEGATIVE (NEGATIVE); LEUKOCYTE ESTERASE,URINE NEGATIVE (NEGATIVE); NITRITE,URINE NEGATIVE (NEGATIVE); PROTEIN,URINE NEGATIVE (NEGATIVE); URINE SPECIFIC GRAVITY 1.009; UROBILINOGEN,URINE NEGATIVE mg/dL (<2.0)
[2017-02-08 23:26] VITALS: BP 134/67
[2017-02-09] MEDS ORDERED: ONDANSETRON ODT 4 MG TAB (6 TAB/DSPK) PO PRN (00:26)
--- NOTE | 2017-02-09 17:10 | EKG REPORT ---
SEVERITY:- ABNORMAL ECG - SINUS RHYTHM LEFT ATRIAL ABNORMALITY LVH WITH SECONDARY REPOLARIZATION ABNORMALITY ANTERIOR Q WAVES, POSSIBLY DUE TO LVH : Confirmed by: Flori Barone MD 09-Feb-2017 17:08:41
== END 2017-02-09 00:34 | disposition home or self-care (01) ==
LOC: ER 19:28
DX: R10.13 Epigastric pain (principal); R11.10 Vomiting, unspecified; I10 Essential (primary) hypertension; J44.9 Chronic obstructive pulmonary disease, unspecified; R10.817 Generalized abdominal tenderness; Z82.49 Family history of ischemic heart disease and other diseases of the circulatory system; Z88.0 Allergy status to penicillin; Z88.8 Allergy status to other drugs, medicaments and biological substances; Z90.49 Acquired absence of other specified parts of digestive tract
CPT/HCPCS: 93005; 99285; 36415; 82553; 80307; 82550; 83690; 85025; 80053; 81001; 84484; 74022; 71010; 76705; 93010; S0119

== ENCOUNTER 2017-02-09 14:59 | Emergency (ER) | payer OTHER ==
[2017-02-09 15:30] VITALS: BP 164/92
[2017-02-09] MEDS ORDERED: IBUPROFEN 600 MG TABLET PO ONE (16:11)
[2017-02-09] MEDS ORDERED: LIDOCAINE 5% (700 MG) TRANSDERMAL ADH..PATCH TP ONE (16:11)
--- NOTE | 2017-02-09 16:11 | ER Document Report ---
ED Cardiac - General Chief Complaint: Chest Pain Stated Complaint: CHEST PAIN Time Seen by Provider: 02/09/17 16:01 Notes: Patient is a 66-year-old female, past medical history chronic opioid and benzo use, GERD, presents with 4 days of left lateral chest pain is worse when she moves. She was seen in the emergency room yesterday evening for similar symptoms. She came to the emergency room in the morning yesterday and eloped with her IV in place. Denies numbness, tingling, shortness of breath, fevers, cough, leg swelling or abdominal pain. TRAVEL OUTSIDE OF THE [place] IN LAST 30 DAYS: No - Related Data Allergies/Adverse Reactions: Penicillins Allergy (Verified 02/09/17 15:29) prednisone [Prednisone] Allergy (Verified 02/09/17 15:29) codeine phosphate [From Tylenol-Codeine] Adverse Reaction (Verified 02/09/17 15: 29) propoxyphene napsylate [From Darvocet-N 100] Adverse Reaction (Verified 15:29) Past Medical History - General Information source: Patient - Social History Smoking Status: Current Every Day Smoker Family History: Reviewed & Not Pertinent - Past Medical History Cardiac Medical History: Reports: Hx Hypertension Pulmonary Medical History: Reports: Hx Asthma, Hx COPD Renal/ Medical History: Denies: Hx Peritoneal Dialysis Psychiatric Medical History: Reports: Hx Anxiety, Hx Depression Past Surgical History: Reports: Hx Appendectomy, Hx Bowel Surgery, Hx Gynecologic Surgery, Hx Orthopedic Surgery - Immunizations Hx Diphtheria, Pertussis, Tetanus Vaccination: Yes Review of Systems - Review of Systems Notes: REVIEW OF SYSTEMS: CONSTITUTIONAL: -fevers, -chills EENT: -eye pain, -difficulty swallowing, -nasal congestion CARDIOVASCULAR: +chest pain, -syncope. RESPIRATORY: -cough, -SOB GASTROINTESTINAL: -abdominal pain, - nausea, -vomiting, -diarrhea GENITOURINARY: -dysuria, -hematuria MUSCULOSKELETAL: -back pain, -neck pain SKIN: -rash or skin lesions. HEMATOLOGIC: -easy bruising or bleeding. LYMPHATIC: -swollen, enlarged glands. NEUROLOGICAL: -altered mental status or loss of consciousness, -headache, - neurologic symptoms PSYCHIATRIC: -anxiety, -depression. ALL OTHER SYSTEMS REVIEWED AND NEGATIVE. Physical Exam - Vital signs Vitals: Temp Pulse Resp BP Pulse Ox 98.2 F 93 18 164/92 H 100 02/09/17 15:25 02/09/17 15:25 02/09/17 15:25 02/09/17 15:25 02/09/17 15:25 - Notes Notes: PHYSICAL EXAMINATION: GENERAL: Well-appearing, well-nourished and in no acute distress. HEAD: Atraumatic, normocephalic. EYES: Pupils equal round and reactive to light, extraocular movements intact, sclera anicteric, conjunctiva are normal. ENT: nares patent, oropharynx clear without exudates. Moist mucous membranes. NECK: Normal range of motion, supple without lymphadenopathy LUNGS: Breath sounds clear to auscultation bilaterally and equal. No wheezes rales or rhonchi. HEART: Regular rate and rhythm without murmurs. Tenderness over left lateral chest wall. ABDOMEN: Soft, nontender, normoactive bowel sounds. No guarding, no rebound. No masses appreciated. EXTREMITIES: Normal range of motion, no pitting or edema. No cyanosis. NEUROLOGICAL: Cranial nerves grossly intact. Normal speech, normal gait. Normal sensory and motor exams. PSYCH: Normal mood, normal affect. SKIN: Warm, Dry, normal turgor, no rashes or lesions noted. Course - Re-evaluation Re-evalutation: Pt's EKG and troponin show any active ischemia. Her chest x-ray is normal and other labs are unremarkable. Once again, for 2 days in a row, the patient eloped prior to the results of her labs. This time she did not have an IV in place. - Vital Signs Vital signs: Temp Pulse Resp BP Pulse Ox 98.2 F 93 18 164/92 H 100 02/09/17 15:25 02/09/17 15:25 02/09/17 15:25 02/09/17 15:25 02/09/17 15:25 - Laboratory Result Diagrams: 02/09/17 17:03 02/09/17 17:03 Laboratory results interpreted by me: 02/09/17 02/09/17 17:03 17:03 RDW 15.3 H Est GFR (Non-Af Amer) 58 L Calcium 10.3 H AST 49 H Alkaline Phosphatase 149 H Total Protein 8.8 H Lipase 320.1 H - Diagnostic Test Radiology reviewed: Image reviewed, Reports reviewed - EKG Interpretation by Me EKG shows normal: Sinus rhythm, Winner, Intervals, QRS Complexes, ST-T Waves Rate: Normal When compared to previous EKG there are: No significant change Discharge - Discharge Clinical Impression: Chest pain Qualifiers: Chest pain type: unspecified Qualified Code(s): R07.9 - Chest pain, unspecified Condition: Stable Disposition: AGAINST MEDICAL ADVICE Additional Instructions: CHEST PAIN OF UNCLEAR CAUSE: The exact cause of your chest pain isn't clear. Fortunately, there is no evidence of a dangerous medical condition. Further testing may be required to find the source of the pain. Most often, we find that this pain is coming from the chest wall -- the muscles or rib joints in the chest. But chest pain can come from the lung and lung lining, the esophagus, the heart valves or heart lining, and even the stomach or gallbladder. Rest. Eat lightly until the pain is gone. We may prescribe medicine for pain and inflammation. You should call the physician immediately if the pain radiates to the shoulder, jaw or arms; if you start to run a fever or develop a cough; or if you develop shortness of breath, or other new or alarming symptoms. NORMAL EXAM AND WORKUP: At this time, your examination and workup show no significant abnormality. No significant abnormal physical findings were noted. All laboratory, EKG, and imaging (x-ray, CT scans, ultrasound) studies that were ordered show no significant abnormality. Although your examination and all studies that were ordered showed no significant abnormal finding, there are no examinations and no studies that are 100% accurate. There is always the possibility that some abnormality could exist and not be detected with physical examination or within the limits and capabilities of laboratory and other studies. You should return or follow up as you were instructed on your visit today for further evaluation if your symptoms do not resolve. CHEST WALL PAIN: Your chest pain may be coming from the chest wall. This is often caused by straining the muscles or joints in the chest during physical activity, direct trauma, coughing, or vigorous vomiting. Persons with arthritis are especially prone to this type of pain, due to inflammation of the cartilage joints near the breast bone. Occasionally, no cause can be found. Rest from strenuous physical activity. This kind of chest pain is usually made worse by movement of the chest. Depending on the symptoms, we may prescribe medicine for pain, muscle relaxation, and antiinflammatory effects. If the pain is new, and seems to be due to muscle strain, cold packs can help. Otherwise, apply gentle warmth to the painful area for 15 minutes every hour or two. You should call contact the doctor immediately if things change. Further evaluation is needed if you develop a fever or cough, if the nature of the pain changes, or if you become short of breath. ANGINA EPISODE: Your physician has diagnosed the pain you experienced as an episode of angina. Angina occurs when a portion of the heart muscle temporarily lacks oxygen. It does not cause any permanent heart damage, but serves as a warning. Hospitalization is not necessary now. Evaluation of your cardiac condition , and medical therapy for angina will be necessary. It's important you be sure to keep all appointments and take medication exactly as prescribed. Angina is usually treated with a type of "nitrate" medication. This is available as ointment, pills, or sublingual (under the tongue) tablets. Depending on your clinical situation, other medications may be added to help control angina. These may include beta blockers or calcium blockers. If episodes of angina are occurring with increased frequency, or if chest pain lasts longer than 15 minutes or does not respond to nitroglycerin, you must seek emergency medical care immediately. ACID REFLUX DISEASE (GERD): Gastro-Esophageal Reflux Disease (GERD) is caused by stomach acid refluxing back up into the esophagus. The valve at the end of the esophagus may be weak. This is common in persons with a hiatal hernia. GERD symptoms can include indigestion, chest pain, heartburn, or food "sticking." Certain foods, alcohol, and aspirin can make GERD worse. Treatment depends on the severity. Usually, antacids or acid-suppressing medicines are used. When the esophagus is acutely inflamed, the physician will often prescribe membrane-protective drugs such as Carafate. Some patients benefit from medication such as Reglan that tightens the valve at the top of the stomach. Avoid those foods that bring on your symptoms. For many people, these foods are coffee, chocolate, onions, garlic, and carbonated drinks. Don't use alcohol, aspirin, caffeine, or tobacco. Don't eat late at night -- within 4 hours of bedtime. Don't over-eat. If necessary, elevate the head of your bed about 4 inches so that stomach acid will not roll up into your esophagus. Call the doctor if you develop severe chest pain, inability to swallow fluids, fever, or worsening symptoms. ASPIRIN: Aspirin has been shown to have a beneficial effect on blood circulation by reducing the clotting effect of platelets in the blood. These beneficial effects can be achieved by taking just a single baby (81 mg) aspirin a day. It is recommended that any person over the age of forty take a single baby aspirin every day for heart and brain circulation, unless you are allergic to aspirin or have some significant bleeding disorder. It is strongly recommended that people who have proven cardiac or blood circulation disturbances should take a baby aspirin every day. NITRATES: Nitroglycerin and related longer-acting nitrate medications are used to prevent or treat attacks of angina. These medicines dilate blood vessels, decreasing the work of the heart, and improving its supply of oxygen. Many different forms are available, including sublingual tablets (used under the tongue), sprays, skin patches, and long-acting pills. If the particular form of medication you have been given is not working well for you, contact your doctor. Long-acting forms: Take exactly as prescribed. Sudden stopping of medication can provoke increased attacks. Sublingual tabs or spray: A headache will usually occur with use. Sit or lie while waiting for the pain to go away. If angina doesn't respond to three doses (five minutes apart), call for emergency assistance. ANTACID THERAPY: You have been instructed to start antacid therapy. Antacids directly neutralize stomach acid. This is useful for acid irritation of the esophagus, gastritis, and ulcers. You should take two tablespoons of antacid one hour after each meal and three hours after each meal. If you are not eating, take the antacid every two hours. If you are using a concentrate (such as Maalox TC), use only one tablespoon. Many antacids affect the bowels. The most common problem is diarrhea. In this case, a pure aluminum hydroxide antacid (such as AlternaGel) can be substituted for some or all doses. If the problem is constipation, add a teaspoon of Milk of Magnesia to each dose. Call the doctor if you experience continued diarrhea or constipation, or if you develop lightheadedness, bloody stool or vomitus, severe abdominal pain, or black stool. PRILOSEC (ACID PUMP INHIBITOR): Prilosec (omeprazole) is an acid-pump inhibitor. It blocks the secretion of hydrogen ions in the acid-producing cells of the stomach. Prilosec keeps your stomach from making acid. Take all medication as prescribed, even after the pain is gone. Regular antacids may be added as needed if you have symptoms while taking this medicine. There are usually no side effects from this medication. Contact your doctor if there is fever, rash, yellow skin color, increasing abdominal pain, weakness, or unusual bruising. Return at once if you develop lightheadedness, black or bloody stool, or bloody vomitus. ORAL NARCOTIC MEDICATION: You have been given a prescription for pain control. This medication is a narcotic. It's best taken with food, as nausea can result if taken on an empty stomach. Don't operate machinery or drive within six hours of taking this medication. Do not combine this medicine with alcohol, or with any medication which can cause sedation (such as cold tablets or sleeping pills) unless you get permission from the physician. Narcotics tend to cause constipation. If possible, drink plenty of fluids and eat a diet high in fiber and fruits. Please be aware that prescription narcotics also have the potential for abuse. People become addicted to these medications because of the general sense of wellbeing that they induce. This feeling along with a significant reduction in tension, anxiety, and aggression provides a stimulating seductive quality to these drugs. Once your pain is under control, we encourage you to discard your unused narcotics. FOLLOW-UP CARE: If you have been referred to a physician for follow-up care, call the physician s office for an appointment as you were instructed or within the next two days. If you experience worsening or a significant change in your symptoms, notify the physician immediately or return to the Emergency Department at any time for re-evaluation.
--- NOTE | 2017-02-09 17:10 | EKG REPORT ---
SEVERITY:- ABNORMAL ECG - SINUS RHYTHM PROBABLE LVH WITH SECONDARY REPOL ABNRM ANTERIOR Q WAVES, POSSIBLY DUE TO LVH : Confirmed by: Flori Barone MD 09-Feb-2017 17:08:36
[2017-02-09 17:37] LABS: ABSOLUTE LYMPHOCYTES (AUTO) 1.9 10^3/uL (0.5-4.7); ABSOLUTE MONOCYTES (AUTO) 0.3 10^3/uL (0.1-1.4); BASOPHILS % (AUTO) 0.2 % (0-2); EOSINOPHILS % (AUTO) 0.2 % (0-6); HEMATOCRIT 38.6 % (36.0-47.0); HEMOGLOBIN 12.7 g/dL (12.0-15.5); HGB HCT DIFFERENCE -0.5; LYMPHOCYTES % (AUTO) 36.3 % (13-45); MEAN CORPUSCULAR HEMOGLOBIN 29.3 pg (27.0-33.4); MEAN CORPUSCULAR HGB CONC 32.9 g/dL (32.0-36.0); MEAN CORPUSCULAR VOLUME 89 fl (80-97); MONOCYTES % (AUTO) 5.4 % (3-13); RED BLOOD COUNT 4.33 10^6/uL (3.72-5.28); RED CELL DISTRIBUTION WIDTH 15.3 % (11.5-14.0); SEGMENTED NEUTROPHILS % (AUTO) 57.9 % (42-78); WHITE BLOOD COUNT 5.1 10^3/uL (4.0-10.5)
[2017-02-09 17:53] LABS: ALANINE AMINOTRANSFERASE 28 U/L (9-52); ALKALINE PHOSPHATASE 149 U/L (38-126); ANION GAP 15 (5-19); ASPARTATE AMINO TRANSFERASE 49 U/L (14-36); BILIRUBIN,DIRECT 0.4 mg/dL (0.0-0.4); BILIRUBIN,TOTAL 0.8 mg/dL (0.2-1.3); BLOOD UREA NITROGEN 14 mg/dL (7-20); CALCIUM 10.3 mg/dL (8.4-10.2); CARBON DIOXIDE 22 mmol/L (22-30); CHLORIDE 104 mmol/L (98-107); CREATINE KINASE 75 U/L (30-135); CREATININE RESULT 0.97 mg/dL (0.52-1.25); GLUCOSE 105 mg/dL (75-110); LIPASE 320.1 U/L (23-300); POTASSIUM 4.6 mmol/L (3.6-5.0); SODIUM 140.7 mmol/L (137-145); TOTAL PROTEIN 8.8 g/dL (6.3-8.2)
== END 2017-02-09 18:19 | disposition left against medical advice (07) ==
LOC: ER 14:59
DX: R07.9 Chest pain, unspecified (principal); F11.90 Opioid use, unspecified, uncomplicated; F19.90 Other psychoactive substance use, unspecified, uncomplicated; F17.200 Nicotine dependence, unspecified, uncomplicated
CPT/HCPCS: 36415; 71020; 80053; 82550; 83690; 84484; 85025; 93005; 93010; 99285

== ENCOUNTER 2017-02-11 18:40 | Emergency (ER) | payer OTHER ==
[2017-02-11 19:43] VITALS: BP 159/97
[2017-02-11 21:39] LABS: ABSOLUTE LYMPHOCYTES (AUTO) 1.7 10^3/uL (0.5-4.7); ABSOLUTE MONOCYTES (AUTO) 0.5 10^3/uL (0.1-1.4); ABSOLUTE NEUT (AUTO) 7.6 10^3/uL (1.7-8.2); BASOPHILS % (AUTO) 0.2 % (0-2); EOSINOPHILS % (AUTO) 0.1 % (0-6); HEMATOCRIT 37.4 % (36.0-47.0); HEMOGLOBIN 12.2 g/dL (12.0-15.5); HGB HCT DIFFERENCE -0.8; LYMPHOCYTES % (AUTO) 16.8 % (13-45); MEAN CORPUSCULAR HEMOGLOBIN 29.1 pg (27.0-33.4); MEAN CORPUSCULAR HGB CONC 32.5 g/dL (32.0-36.0); MEAN CORPUSCULAR VOLUME 90 fl (80-97); MONOCYTES % (AUTO) 5.4 % (3-13); RED BLOOD COUNT 4.18 10^6/uL (3.72-5.28); RED CELL DISTRIBUTION WIDTH 15.4 % (11.5-14.0); SEGMENTED NEUTROPHILS % (AUTO) 77.5 % (42-78); WHITE BLOOD COUNT 9.8 10^3/uL (4.0-10.5)
[2017-02-11 21:57] LABS: ALANINE AMINOTRANSFERASE 33 U/L (9-52); ALKALINE PHOSPHATASE 141 U/L (38-126); ANION GAP 15 (5-19); ASPARTATE AMINO TRANSFERASE 66 U/L (14-36); BILIRUBIN,DIRECT 0.4 mg/dL (0.0-0.4); BILIRUBIN,TOTAL 0.9 mg/dL (0.2-1.3); BLOOD UREA NITROGEN 15 mg/dL (7-20); CALCIUM 10.3 mg/dL (8.4-10.2); CARBON DIOXIDE 22 mmol/L (22-30); CHLORIDE 101 mmol/L (98-107); CREATININE RESULT 1.04 mg/dL (0.52-1.25); GLUCOSE 115 mg/dL (75-110); POTASSIUM 3.7 mmol/L (3.6-5.0); SODIUM 138.3 mmol/L (137-145); TOTAL PROTEIN 8.4 g/dL (6.3-8.2)
[2017-02-11] MEDS ORDERED: ONDANSETRON 4 MG TAB.RAPDIS PO ONE (22:33)
[2017-02-11] MEDS ORDERED: FAMOTIDINE 20 MG TABLET PO ONE (22:33)
--- NOTE | 2017-02-11 22:35 | ER Document Report ---
ED GI/ - General Stated Complaint: ABDOMINAL PAIN,SENT BY DOCTOR Time Seen by Provider: 02/11/17 22:30 Notes: Patient is a 66-year-old female comes emergency department for chief complaint of a pain that radiates from her mid upper back around to her left upper abdomen , states symptoms have been intermittent recently, she has already been evaluated here for this, she states she went to an urgent care in [facility] and they told her that she might have a kidney stone. Patient states she vomited yesterday, none today. No blood in the vomit. No chest pain, no shortness of breath, no fever, no dysuria. No history of kidney stones. Past medical history of appendectomy, hernia repair, HTN. patient denies any daily medications other than vitamin D and propranolol. TRAVEL OUTSIDE OF THE [place] IN LAST 30 DAYS: No - Related Data Allergies/Adverse Reactions: Penicillins Allergy (Verified 02/09/17 15:29) prednisone [Prednisone] Allergy (Verified 02/09/17 15:29) codeine phosphate [From Tylenol-Codeine] Adverse Reaction (Verified 02/09/17 15: 29) propoxyphene napsylate [From Darvocet-N 100] Adverse Reaction (Verified 15:29) Past Medical History - General Information source: Patient - Social History Smoking Status: Current Every Day Smoker Frequency of alcohol use: Occasional Drug Abuse: None Lives with: Family Family History: Reviewed & Not Pertinent - Past Medical History Cardiac Medical History: Reports: Hx Hypertension Pulmonary Medical History: Reports: Hx Asthma, Hx COPD Renal/ Medical History: Denies: Hx Peritoneal Dialysis Psychiatric Medical History: Reports: Hx Anxiety, Hx Depression Past Surgical History: Reports: Hx Appendectomy, Hx Bowel Surgery, Hx Gynecologic Surgery, Hx Orthopedic Surgery - Immunizations Hx Diphtheria, Pertussis, Tetanus Vaccination: Yes Review of Systems - Review of Systems Constitutional: No symptoms reported EENT: No symptoms reported Cardiovascular: No symptoms reported Respiratory: No symptoms reported Gastrointestinal: See HPI Genitourinary: See HPI Female Genitourinary: No symptoms reported Musculoskeletal: See HPI Skin: No symptoms reported Hematologic/Lymphatic: No symptoms reported Neurological/Psychological: No symptoms reported Physical Exam - Vital signs Vitals: Temp Pulse Resp BP Pulse Ox 98.1 F 87 18 159/97 H 100 02/11/17 19:39 02/11/17 19:39 02/11/17 19:39 02/11/17 19:39 02/11/17 19:39 Interpretation: Normal - General General appearance: Appears well, Alert In distress: None - Patient slightly weathered in appearance and slightly tired appearing, she is in no distress - HEENT Head: Normocephalic, Atraumatic Eyes: Normal Conjunctiva: Normal Extraocular movements intact: Yes Eyelashes: Normal Pupils: PERRL Nasal: Normal Mouth/Lips: Normal Mucous membranes: Normal Pharynx: Normal Neck: Normal - Respiratory Respiratory status: No respiratory distress Chest status: Nontender Breath sounds: Normal. No: Decreased air movement, Wheezing Chest palpation: Normal - Cardiovascular Rhythm: Regular. No: Tachycardia Heart sounds: Normal auscultation, S1 appreciated, S2 appreciated Murmur: No - Abdominal Inspection: Normal Distension: No distension Bowel sounds: Normal Tenderness: Nontender - Benign, unremarkable abdomen with no tenderness. No: Tender, Guarding Organomegaly: No organomegaly - Back Back: Normal, Nontender. No: Tender - Extremities General upper extremity: Normal inspection, Nontender, Normal color, Normal ROM , Normal temperature General lower extremity: Normal inspection, Nontender, Normal color, Normal ROM , Normal temperature, Normal weight bearing. No: Remedios's sign - Neurological Neuro grossly intact: Yes Cognition: Normal Orientation: AAOx4 [place] Coma Scale Eye Opening: Spontaneous [place] Coma Scale Verbal: Oriented [place] Coma Scale Motor: Obeys Commands [place] Coma Scale Total: 15 Speech: Normal Motor strength normal: LUE, RUE, LLE, RLE Sensory: Normal - Psychological Associated symptoms: Normal affect, Normal mood - Skin Skin Temperature: Warm Skin Moisture: Dry Skin Color: Normal Course - Re-evaluation Re-evalutation: I do not appreciate any CVA tenderness, abdominal tenderness, or other abnormalities on patient's exam. Patient is weathered appearance and appears somewhat tired, no signs of distress. patient drinking water in the room without any difficulty, provided a urine sample, urine has bacteria, white blood cells, leukocyte esterase, it is not severe. Culture placed. Patient insisting that she has had the same symptoms in the past with a urinary tract infection, requests treatment. Giving bactrim. Culture placed. Low suspicion of acute abdominal or life-threatening abnormality, patient has been here several times recently with unremarkable workups, patient states she lives at home with her dogs by herself but states that she likes her situation and has no complaints. Asking for discharge. Recommended primary care follow-up and return precautions, patient states understanding and agreement. - Vital Signs Vital signs: Temp Pulse Resp BP Pulse Ox 98.1 F 87 18 159/97 H 100 02/11/17 22:37 02/11/17 22:37 02/11/17 22:37 02/11/17 22:37 02/11/17 22:37 - Laboratory Result Diagrams: 02/11/17 21:05 02/11/17 21:05 Laboratory results interpreted by me: 02/11/17 02/11/17 02/12/17 21:05 21:05 01:09 RDW 15.4 H Est GFR (Non-Af Amer) 53 L Glucose 115 H Calcium 10.3 H AST 66 H Alkaline Phosphatase 141 H Total Protein 8.4 H Lipase 328.0 H Urine Blood MODERATE H Ur Leukocyte Esterase TRACE H Discharge - Discharge Clinical Impression: Flank pain Condition: Stable Disposition: HOME, SELF-CARE Additional Instructions: Take the antibiotic as directed for urinary tract infection. Follow-up with primary care. Return to emergency department if you develop any concerning or worsening symptoms including fever,, severe pain, etc. Prescriptions: Sulfamethoxazole/Trimethoprim [Bactrim Ds Tablet] 1 each PO BID #10 tablet
[2017-02-12] MEDS ORDERED: ACETAMINOPHEN 325 MG TABLET PO ONE (00:25)
[2017-02-12 01:31] LABS: APPEARANCE,URINE CLEAR; BILIRUBIN,URINE NEGATIVE (NEGATIVE); GLUCOSE, URINE NEGATIVE (NEGATIVE); KETONES,URINE NEGATIVE (NEGATIVE); LEUKOCYTE ESTERASE,URINE TRACE (NEGATIVE); NITRITE,URINE NEGATIVE (NEGATIVE); PROTEIN,URINE NEGATIVE (NEGATIVE); URINE SPECIFIC GRAVITY 1.012; UROBILINOGEN,URINE NEGATIVE mg/dL (<2.0)
[2017-02-12 02:29] LABS: URINE BARBITURATES SCREEN NEGATIVE; URINE METHADONE SCREEN NEGATIVE; URINE OPIATES LOW NEGATIVE; URINE PHENCYCLIDINE SCREEN NEGATIVE
[2017-02-12] MEDS ORDERED: SULFAMETHOXAZOLE/TRIMETHOPRIM 800-160 MG TABLET PO ONE (02:44)
== END 2017-02-12 03:01 | disposition home or self-care (01) ==
LOC: ER 18:40
DX: M54.89 Other dorsalgia (principal); R10.12 Left upper quadrant pain; R82.71 Bacteriuria; I10 Essential (primary) hypertension; J44.9 Chronic obstructive pulmonary disease, unspecified; F17.200 Nicotine dependence, unspecified, uncomplicated; Z90.49 Acquired absence of other specified parts of digestive tract; Z88.0 Allergy status to penicillin; Z88.8 Allergy status to other drugs, medicaments and biological substances; Z87.440 Personal history of urinary (tract) infections
CPT/HCPCS: 99284; 36415; 87086; 83690; 85025; 87088; 80053; 81001; 87186; 80307; S0119

== ENCOUNTER 2017-02-13 19:39 | Emergency (ER) | payer OTHER ==
[2017-02-13 22:09] LABS: ABSOLUTE LYMPHOCYTES (AUTO) 3.1 10^3/uL (0.5-4.7); ABSOLUTE MONOCYTES (AUTO) 0.4 10^3/uL (0.1-1.4); ABSOLUTE NEUT (AUTO) 2.9 10^3/uL (1.7-8.2); BASOPHILS % (AUTO) 0.4 % (0-2); EOSINOPHILS % (AUTO) 0.4 % (0-6); HEMATOCRIT 35.6 % (36.0-47.0); HEMOGLOBIN 11.7 g/dL (12.0-15.5); HGB HCT DIFFERENCE -0.5; MEAN CORPUSCULAR HEMOGLOBIN 29.5 pg (27.0-33.4); MEAN CORPUSCULAR HGB CONC 32.8 g/dL (32.0-36.0); MEAN CORPUSCULAR VOLUME 90 fl (80-97); MONOCYTES % (AUTO) 6.1 % (3-13); RED BLOOD COUNT 3.96 10^6/uL (3.72-5.28); RED CELL DISTRIBUTION WIDTH 15.8 % (11.5-14.0); SEGMENTED NEUTROPHILS % (AUTO) 45.1 % (42-78); WHITE BLOOD COUNT 6.4 10^3/uL (4.0-10.5)
--- NOTE | 2017-02-13 22:20 | ER Document Report ---
ED General - General Chief Complaint: Urinary Problem Stated Complaint: ABDOMINAL PAIN Time Seen by Provider: 02/13/17 22:11 Notes: Patient is a 66-year-old female presents with complaint of pain in her left lower back. No dysuria. No pain radiating around the flank. She was seen here 2 days ago for similar symptoms and diagnosed with UTI and placed on Bactrim. No fevers. No vomiting. No diarrhea. During exam also noticed that the patient had a old dirty Derian wrap on her right forearm. Patient says she had fallen and had skin tears and therefore placed an Derian wrap on it. She says this happened this morning. She denies any other injuries. TRAVEL OUTSIDE OF THE [place] IN LAST 30 DAYS: No - Related Data Allergies/Adverse Reactions: Penicillins Allergy (Verified 02/09/17 15:29) prednisone [Prednisone] Allergy (Verified 02/09/17 15:29) codeine phosphate [From Tylenol-Codeine] Adverse Reaction (Verified 02/09/17 15: 29) propoxyphene napsylate [From Darvocet-N 100] Adverse Reaction (Verified 15:29) Past Medical History - Social History Smoking Status: Unknown if Ever Smoked Frequency of alcohol use: None Drug Abuse: None Family History: Reviewed & Not Pertinent Patient has suicidal ideation: No Patient has homicidal ideation: No - Past Medical History Cardiac Medical History: Reports: Hx Hypertension Pulmonary Medical History: Reports: Hx Asthma, Hx COPD Renal/ Medical History: Denies: Hx Peritoneal Dialysis Psychiatric Medical History: Reports: Hx Anxiety, Hx Depression Past Surgical History: Reports: Hx Appendectomy, Hx Bowel Surgery, Hx Gynecologic Surgery, Hx Orthopedic Surgery - Immunizations Hx Diphtheria, Pertussis, Tetanus Vaccination: Yes Review of Systems - Review of Systems Notes: My Normal Review Basic REVIEW OF SYSTEMS: CONSTITUTIONAL : Denies fever, chills, or sweats. Denies recent illness. RESPIRATORY: Denies cough, cold, or chest congestion. Denies shortness of breath, difficulty breathing, or wheezing. GASTROINTESTINAL: Denies abdominal pain. Denies nausea, vomiting, or diarrhea. Denies constipation. Last BM: GENITOURINARY: Denies difficulty urinating, painful urination, burning, frequency, or blood in urine. FEMALE GENITOURINARY: Denies vaginal bleeding, abnormal or irregular periods. LMP: MUSCULOSKELETAL: Left lower back pain. SKIN: Skin tear right forearm NEUROLOGICAL: Denies altered mental status or loss of consciousness. Denies headache. Denies weakness or paralysis or loss of use of either side. Denies problems with gait or speech. Denies sensory or motor loss. ALL OTHER SYSTEMS REVIEWED AND NEGATIVE. Physical Exam - Vital signs Vitals: Temp Pulse Resp BP Pulse Ox 97.6 F 60 18 132/74 H 99 02/13/17 20:43 02/13/17 20:43 02/13/17 20:43 02/13/17 20:43 02/13/17 20:43 - Notes Notes: General Appearance: Well nourished, alert, cooperative, no acute distress, mild to moderate obvious discomfort. Vitals: reviewed, See vital signs table. Head: no swelling or tenderness to the head Eyes: PERRL, EOMI, Conjuctiva clear Mouth: No decreasd moisture Lungs: No wheezing, No rales, No rhonci, No accessory muscle use, good air exchange bilaterally. Heart: Normal rate, Regular rythm, No murmur, no rub Abdomen: Normal BS, soft, No rigidity, No reproducible abdominal tenderness to palpation, No guarding, no rebound, no abdominal masses, no organomegaly Back: Pain to palpation over left lower back. Extremities: strength 5/5 in all extremities, good pulses in all extremities, no swelling or tenderness in the extremities, no edema. Skin: Skin tears right forearm. Neuro: speech clear, oriented x 3, normal affect, responds appropriately to questions. Course - Vital Signs Vital signs: Temp Pulse Resp BP Pulse Ox 98.9 F 80 18 132/64 H 100 02/13/17 22:00 02/13/17 22:00 02/13/17 22:00 02/13/17 22:00 02/13/17 22:00 - Laboratory Result Diagrams: 02/13/17 21:55 02/13/17 21:55 Laboratory results interpreted by me: 02/13/17 02/13/17 02/13/17 21:55 21:55 21:55 Hgb 11.7 L Hct 35.6 L RDW 15.8 H Lymphocytes % 48.0 H Sodium 133.4 L Carbon Dioxide 18 L BUN 25 H Creatinine 2.04 H Est GFR ( Amer) 30 L Est GFR (Non-Af Amer) 25 L AST 51 H Lipase 325.4 H Urine Blood MODERATE H Urine Nitrite POSITIVE H Ur Leukocyte Esterase LARGE H - Transfer of Care Notes: 02/14/17 00:56 Because of the patient's acute renal insufficiency I decided to check an ultrasound to make sure there is no evidence of hydronephrosis. On. Her pain is much more consistent with that of a pyelonephritis as opposed to a kidney stone. The pain is focal to the back itself. It does not radiate a rate around the flank or into the suprapubic region. Her urine culture from 2 days ago shows evidence of gram-negative rods. I will switch her to Keflex. Sensitivities are not yet back. Patient says she should be able to follow-up with her doctor on Friday. I prefer her to be followed closely and therefore I informed her that I want her to return to the ER 2 days we can recheck her kidney function as well as recheck her urine. Patient agrees with this. Patient will be discharged home but encouraged to return to ER immediately if she has worsening pain, fevers, vomiting, or feels unwell. Patient agrees with plan and will be discharged home. Patient is not septic or toxic appearing Dictation of this chart was performed using voice recognition software; therefore, there may be some unintended grammatical errors. Discharge - Discharge Clinical Impression: Pyelonephritis, Renal insufficiency Condition: Good Disposition: HOME, SELF-CARE Additional Instructions: PYELONEPHRITIS: Your evaluation shows evidence of pyelonephritis. This is an infection in the kidney. Typical symptoms are fever, pain in the flank, pain on urination, and frequent urination. Many cases of pyelonephritis can be treated at home. Hospital care may be necessary for patients who are very ill, or elderly or . Pyelonephritis is treated with antibiotics. Be sure to take all the medication as prescribed. Drink plenty of liquids (about three quarts per day) . You may take acetaminophen for fever. You should feel significantly improved within two days. You should have a recheck of your urine in about one week to insure that the infection is gone. Return for a re-examination if your symptoms worsen in any way -- such as high fever, shaking chills, severe weakness or dizziness, severe pain, or inability to pass your urine. ANTIBIOTIC THERAPY: You have been given an antibiotic prescription. It's important that you take all the medication, unless instructed otherwise by your physician. Failure to complete the entire course can result in relapse of your condition. Common side effects of antibiotics include nausea, intestinal cramping, or diarrhea. Women may develop vaginal yeast infections, and babies can get yeast (thrush) in the mouth following the use of antibiotics. Contact your physician if you develop significant side effects from this medication. Allergy to this antibiotic can result in hives, wheezing, faintness, or itching. If symptoms of allergy occur, stop the medication and call the doctor. ROCEPHIN: You have been given an injection of an antibiotic called Rocephin ( ceftriaxone). Sometimes the injection must be combined with antibiotic pills. For some infections, such as an uncomplicated ear infection, Rocephin provides all the antibiotic that's needed. The antibiotic will be in your body for about two days. For serious infections, we usually repeat doses of Rocephin daily. Side effects are very unusual following a shot. Women may develop vaginal yeast infections, and babies can get yeast (thrush) in the mouth following the use of antibiotics. Contact your physician if you have symptoms with this medication. Allergy to this antibiotic can result in hives, wheezing, faintness, or itching. If symptoms of allergy occur, call the doctor at once. CEPHALEXIN: The antibiotic you've been prescribed is a member of the cephalosporin class. This type of antibiotic covers a wide variety of infections, including those of the skin, lungs, and urinary tract. It's useful for staph infections. This antibiotic is slightly similar to the penicillin family. In rare cases , a person who is allergic to penicillin will also be allergic to this medication. If you have had a severe allergic reaction to penicillin, and have not taken this antibiotic since that time, notify your doctor. Antibiotics which cover many germs ("broad spectrum" antibiotics) are more likely to cause diarrhea or "yeast" infections. Women prone to vaginal yeast problems may suffer an attack after taking this antibiotic. In infants, oral thrush (white spots "stuck" on the cheek) or yeast diaper rash may result. See your doctor if these problems occur. Call at once if you develop itching, hives , shortness of breath, or lightheadedness. USE OF ACETAMINOPHEN (Tylenol): Acetaminophen may be taken for pain relief or fever control. It's much safer than aspirin, offering a wider range of "safe" dosages. It is safe during . Some brand names are Tylenol, Panadol, Datril, Anacin 3, Tempra, and Liquiprin. Acetaminophen can be repeated every four hours. The following are maximum recommended dosages: >89 pounds or adults 650 mg to 900 mg Acetaminophen can be repeated every four hours. Maximum dose not to exceed 4000 mg a day. FOLLOW-UP CARE: If you have been referred to a physician for follow-up care, call the physician s office for an appointment as you were instructed or within the next two days. If you experience worsening or a significant change in your symptoms, notify the physician immediately or return to the Emergency Department at any time for re-evaluation. Please stop taking sulfamethoxazole trimethoprim (Bactrim). I am starting you on a different antibiotic called Keflex. Please take this as prescribed. Please return to the ER in 2 days so we can recheck your urine and kidney function. Please return to the ER immediately if you have fevers, worsening pain, or vomiting. Please drink lots of clear liquids Prescriptions: Cephalexin Monohydrate [Keflex 500 mg Capsule] 500 mg PO QID #28 capsule Phenazopyridine HCl [Pyridium 100 Mg Tablet] 100 mg PO TID #15 tablet Forms: Return to Work
[2017-02-13 22:24] LABS: ALANINE AMINOTRANSFERASE 24 U/L (9-52); ALBUMIN 4.6 g/dL (3.5-5.0); ALKALINE PHOSPHATASE 113 U/L (38-126); ANION GAP 16 (5-19); APPEARANCE,URINE SLIGHTLY-CLOUDY; ASPARTATE AMINO TRANSFERASE 51 U/L (14-36); BILIRUBIN,DIRECT 0.3 mg/dL (0.0-0.4); BILIRUBIN,TOTAL 0.3 mg/dL (0.2-1.3); BILIRUBIN,URINE NEGATIVE (NEGATIVE); BLOOD UREA NITROGEN 25 mg/dL (7-20); CALCIUM 9.7 mg/dL (8.4-10.2); CARBON DIOXIDE 18 mmol/L (22-30); CHLORIDE 99 mmol/L (98-107); CREATININE RESULT 2.04 mg/dL (0.52-1.25); GLUCOSE 84 mg/dL (75-110); GLUCOSE, URINE NEGATIVE (NEGATIVE); KETONES,URINE NEGATIVE (NEGATIVE); LEUKOCYTE ESTERASE,URINE LARGE (NEGATIVE); LIPASE 325.4 U/L (23-300); NITRITE,URINE POSITIVE (NEGATIVE); POTASSIUM 3.9 mmol/L (3.6-5.0); PROTEIN,URINE NEGATIVE (NEGATIVE); SODIUM 133.4 mmol/L (137-145); TOTAL PROTEIN 7.2 g/dL (6.3-8.2); URINE SPECIFIC GRAVITY 1.025; UROBILINOGEN,URINE NEGATIVE mg/dL (<2.0)
[2017-02-13] MEDS ORDERED: CEFTRIAXONE INJ 1000 MG VIAL IV ONE (22:39)
[2017-02-13] MEDS ORDERED: PHENAZOPYRIDINE HCL 200 MG TABLET PO ONE (22:40)
[2017-02-13] MEDS ORDERED: NORMAL SALINE 1000 ML 1,000 ML IV ONE (23:26)
--- NOTE | 2017-02-14 00:41 | RADIOLOGY REPORT (SQ) ---
EXAM DESCRIPTION: U/S RETROPERITON (RENAL/AORTA) COMPLETED DATE/TIME: 02/14/2017 12:26 am REASON FOR STUDY: left side pain, pyelo COMPARISON: Ultrasound, abdomen, 02/08/2017. TECHNIQUE: Dynamic and static grayscale images acquired of the kidneys and bladder and recorded on P ACS. Additional selected color Doppler and spectral images recorded. LIMITATIONS: None. FINDINGS: RIGHT KIDNEY: Normal size. Normal echogenicity. No solid or suspicious masses. No hydronep hrosis. No calcifications. 9.5 cm. Extra renal pelvis measures 1.0 cm in diameter. LEFT KIDNEY: Normal size. Normal echogenicity. No solid or suspicious masses. No hydronephrosis. No calcifications. BLADDER: No masses. Bilateral ureteral jet flow demonstrated. Mobile mild debris within the urinary bladder, nonspecific. OTHER FINDINGS: No other significant finding. IMPRESSION: Mild nonspecific mobile debris within the urinary bladder. Otherwise unremarkable renal sonogram. TECHNICAL DOCUMENTATION: JOB ID: [id number] [employer]- All Rights Reserved
[2017-02-14 01:58] VITALS: BP 130/78
== END 2017-02-14 01:50 | disposition home or self-care (01) ==
LOC: ER 19:39
DX: N12 Tubulo-interstitial nephritis, not specified as acute or chronic (principal); S51.811A Laceration without foreign body of right forearm, initial encounter; W19.XXXA Unspecified fall, initial encounter; N28.9 Disorder of kidney and ureter, unspecified; M54.5 Low back pain; I10 Essential (primary) hypertension; J44.9 Chronic obstructive pulmonary disease, unspecified; Z88.0 Allergy status to penicillin; Z88.8 Allergy status to other drugs, medicaments and biological substances
CPT/HCPCS: 99284; 96361; 96365; 36415; 87040; 83690; 85025; 80053; 81001; 76770; J3490; J0696; J7030

== ENCOUNTER 2017-02-28 20:49 | Inpatient (IN) | payer OTHER ==
[2017-02-28] MEDS ORDERED: KETOROLAC TROMETHAMINE INJ/PF 30 MG/1 ML SDV IV ONE (20:57)
[2017-02-28 22:48] LABS: ALANINE AMINOTRANSFERASE 29 U/L (9-52); ALBUMIN 3.8 g/dL (3.5-5.0); ALKALINE PHOSPHATASE 115 U/L (38-126); ANION GAP 10 (5-19); ASPARTATE AMINO TRANSFERASE 45 U/L (14-36); BILIRUBIN,DIRECT 0.6 mg/dL (0.0-0.4); BILIRUBIN,TOTAL 0.8 mg/dL (0.2-1.3); BLOOD UREA NITROGEN 16 mg/dL (7-20); CALCIUM 9.1 mg/dL (8.4-10.2); CARBON DIOXIDE 21 mmol/L (22-30); CHLORIDE 96 mmol/L (98-107); CREATININE RESULT 0.91 mg/dL (0.52-1.25); GLUCOSE 91 mg/dL (75-110); POTASSIUM 4.6 mmol/L (3.6-5.0); SODIUM 127.2 mmol/L (137-145); TOTAL PROTEIN 6.6 g/dL (6.3-8.2)
[2017-02-28 23:02] LABS: APPEARANCE,URINE SLIGHTLY-CLOUDY; BILIRUBIN,URINE NEGATIVE (NEGATIVE); GLUCOSE, URINE NEGATIVE (NEGATIVE); KETONES,URINE TRACE mg/dL (NEGATIVE); LEUKOCYTE ESTERASE,URINE NEGATIVE (NEGATIVE); NITRITE,URINE NEGATIVE (NEGATIVE); PROTEIN,URINE NEGATIVE (NEGATIVE); URINE SPECIFIC GRAVITY 1.035; UROBILINOGEN,URINE NEGATIVE mg/dL (<2.0)
[2017-02-28 23:28] LABS: ABSOLUTE LYMPHOCYTES (AUTO) 0.9 10^3/uL (0.5-4.7); ABSOLUTE MONOCYTES (AUTO) 0.9 10^3/uL (0.1-1.4); ABSOLUTE NEUT (AUTO) 10.9 10^3/uL (1.7-8.2); BASOPHILS % (AUTO) 0.3 % (0-2); EOSINOPHILS % (AUTO) 0.1 % (0-6); HEMATOCRIT 32.1 % (36.0-47.0); HEMOGLOBIN 10.5 g/dL (12.0-15.5); HGB HCT DIFFERENCE -0.6; LYMPHOCYTES % (AUTO) 7.1 % (13-45); MEAN CORPUSCULAR HEMOGLOBIN 29.7 pg (27.0-33.4); MEAN CORPUSCULAR HGB CONC 32.8 g/dL (32.0-36.0); MEAN CORPUSCULAR VOLUME 91 fl (80-97); MONOCYTES % (AUTO) 7.3 % (3-13); RED BLOOD COUNT 3.55 10^6/uL (3.72-5.28); SEGMENTED NEUTROPHILS % (AUTO) 85.2 % (42-78); WHITE BLOOD COUNT 12.8 10^3/uL (4.0-10.5)
[2017-02-28] MEDS ORDERED: NORMAL SALINE 1000 ML 1,000 ML IV ONE (23:38)
--- NOTE | 2017-02-28 23:41 | ER Document Report ---
ED General - General Chief Complaint: Flank Pain Stated Complaint: RIGHT FLANK PAIN Time Seen by Provider: 02/28/17 22:17 Notes: Patient is a 66-year-old female with past medical history of recurrent kidney infections and frequent pain-related complaints the emergency department who presents with a complaint of diffuse abdominal pain and right flank pain. Does describe the pain as a severe, constant, throbbing pain. Nothing improves or worsens her pain. She denies ever having pain to this degree of severity. Denies any prior abdominal surgeries. Notes she has been nauseated but has not had any vomiting. Her pain has been worsening since onset approximately 12 hours ago. TRAVEL OUTSIDE OF THE [place] IN LAST 30 DAYS: No - Related Data Allergies/Adverse Reactions: Penicillins Allergy (Verified 02/09/17 15:29) prednisone [Prednisone] Allergy (Verified 02/09/17 15:29) codeine phosphate [From Tylenol-Codeine] Adverse Reaction (Verified 02/09/17 15: 29) propoxyphene napsylate [From Darvocet-N 100] Adverse Reaction (Verified 15:29) Past Medical History - General Information source: Patient - Social History Smoking Status: Current Every Day Smoker Frequency of alcohol use: Occasional Drug Abuse: None Family History: Reviewed & Not Pertinent - Past Medical History Cardiac Medical History: Reports: Hx Hypertension Pulmonary Medical History: Reports: Hx Asthma, Hx COPD Renal/ Medical History: Denies: Hx Peritoneal Dialysis Psychiatric Medical History: Reports: Hx Anxiety, Hx Depression Past Surgical History: Reports: Hx Appendectomy, Hx Bowel Surgery, Hx Gynecologic Surgery, Hx Orthopedic Surgery - Immunizations Hx Diphtheria, Pertussis, Tetanus Vaccination: Yes Review of Systems - Review of Systems Notes: Constitutional: Negative for fever. HENT: Negative for sore throat. Eyes: Negative for visual changes. Cardiovascular: Negative for chest pain. Respiratory: Negative for shortness of breath. Gastrointestinal: Positive for abdominal pain, negative for vomiting or diarrhea. Genitourinary: Negative for dysuria. Musculoskeletal: Negative for back pain. Skin: Negative for rash. Neurological: Negative for headaches, weakness or numbness. 10 point ROS negative except as marked above and in HPI. Physical Exam - Vital signs Vitals: Temp Pulse Resp BP Pulse Ox 97.4 F 79 16 120/76 97 02/28/17 21:10 02/28/17 21:10 02/28/17 21:10 02/28/17 21:10 02/28/17 21:10 Interpretation: Normal Notes: PHYSICAL EXAMINATION: GENERAL: Appears extremely uncomfortable, rocking in the bed. HEAD: Atraumatic, normocephalic. EYES: Pupils equal round and reactive to light, extraocular movements intact, sclera anicteric, conjunctiva are normal. ENT: nares patent, oropharynx clear without exudates. Dry mucous membranes. NECK: Normal range of motion, supple without lymphadenopathy LUNGS: Breath sounds clear to auscultation bilaterally and equal. No wheezes rales or rhonchi. HEART: Regular rate and rhythm without murmurs ABDOMEN: Rigid abdomen, with diffuse tenderness and guarding. Rebound tenderness present throughout. EXTREMITIES: Normal range of motion, no pitting or edema. No cyanosis. NEUROLOGICAL: No focal neurological deficits. Moves all extremities spontaneously and on command. PSYCH: Anxious SKIN: Warm, Dry, normal turgor, no rashes or lesions noted. Course - Re-evaluation Re-evalutation: 02/28/17 23:40 Patient presents with severe right flank pain, abdominal pain, rocking and moaning on exam. She is seen frequently in the emergency department for pain related complaints and has a history of eloping from the emergency department with IVs in place. There is apparent significant prior concern for drug- seeking behavior. Patient is not specifically asking for any medication for me personally and I am concerned about her degree of pain on examination. She does have diffuse abdominal tenderness with some rigidity. Laboratories do show hyponatremia and her urine specific gravity is elevated suggesting a hypovolemic hyponatremia. She does appear clinically dehydrated on examination. Will provide IV fluids, obtain a noncontrasted CT scan of the abdomen pelvis and reassess. Primary concerns at this time include perforation, r nephrolithiasis. 03/01/17 00:28 CT does demonstrate bowel perforation with free air and free fluid in the abdomen. Repeat abdominal exam again remains concerning with diffuse rigidity. I immediately contacted the surgeon change control specialist who will come to the bedside. IV abx will be started. Will continue frequent reassessments 03/01/17 01:46 Remained hemodynamically within normal limits. She has been accepted by the surgeon who will take her to the operating room. - Vital Signs Vital signs: Temp Pulse Resp BP Pulse Ox 98.3 F 79 22 H 136/75 H 98 03/01/17 01:39 02/28/17 21:10 03/01/17 01:16 03/01/17 01:16 03/01/17 01:16 - Laboratory Result Diagrams: 02/28/17 23:17 02/28/17 22:15 Laboratory results interpreted by me: 02/28/17 02/28/17 02/28/17 22:15 22:41 23:17 WBC 12.8 H RBC 3.55 L Hgb 10.5 L Hct 32.1 L RDW 17.0 H Seg Neutrophils % 85.2 H Lymphocytes % 7.1 L Absolute Neutrophils 10.9 H Sodium 127.2 L Chloride 96 L Carbon Dioxide 21 L Direct Bilirubin 0.6 H AST 45 H Urine Ketones TRACE H - Diagnostic Test Radiology reviewed: Reports reviewed Critical Care Note - Critical Care Note Total time excluding time spent on procedures (mins): 35 Comments: Critical care time spent obtaining history from patient or surrogate, discussions with consultants, development of treatment plan with patient or surrogate, evaluation of patient's response to treatment, examination of patient , ordering and performing treatments and interventions, ordering and review of laboratory studies, re-evaluation of patient's condition, ordering and review of radiographic studies and review of old charts Discharge - Discharge Clinical Impression: Bowel perforation, Diffuse abdominal pain Condition: Critical Disposition: ADMITTED INPATIENT Admitting Provider: Surgicalist - [facility] Admitted: OR
--- NOTE | 2017-03-01 00:32 | RADIOLOGY REPORT (SQ) ---
EXAM DESCRIPTION: CT ABD/PELVIS NO ORAL OR IV COMPLETED DATE/TIME: 03/01/2017 12:14 am REASON FOR STUDY: right flank pain COMPARISON: 06/07/2016. TECHNIQUE: CT scan of the abdomen and pelvis performed without intravenous or oral contrast. Images reviewed with lung, soft tissue, and bone windows. Reconstructed coronal and sagittal MPR images revi ewed. All images stored on PACS. All CT scanners at this facility use dose modulation, iterative reconstruction, and/or weight based d osing when appropriate to reduce radiation dose to as low as reasonably achievable (ALARA). [facility]: Dose Right [facility]: CareDose [facility]: Dose Right [facility]: Teradose 4D [facility]: [employer] RADIATION DOSE: 4.92mGy. LIMITATIONS: None. FINDINGS: LOWER CHEST: No significant findings. No nodules or infiltrates. Bilateral mammary prosth eses partially imaged. NON-CONTRASTED LIVER, SPLEEN, ADRENALS: Evaluation limited by lack of IV contrast. No identified sign ificant masses. PANCREAS: No masses. No peripancreatic inflammatory changes. GALLBLADDER: No identified stones by CT criteria. No inflammatory changes to suggest cholecystitis. RIGHT KIDNEY AND URETER: No suspicious masses. Assessment limited by lack of IV contrast. No signif icant calcifications. No hydronephrosis or hydroureter. LEFT KIDNEY AND URETER: No suspicious masses. Assessment limited by lack of IV contrast. No signifi cant calcifications. No hydronephrosis or hydroureter. AORTA AND RETROPERITONEUM: No aneurysm. No retroperitoneal masses or adenopathy. BOWEL AND PERITONEAL CAVITY: Moderate free fluid and moderate free intra peritoneal air of the right upper abdominal quadrant. Few fluid-filled small bowel loops of the lower abdomen. Suture material associated with pelvic bowel. APPENDIX: Not visualized. PELVIS, BLADDER, AND ABDOMINAL WALL:No abnormal masses. No free fluid. Bladder normal. BONES: No significant findings. OTHER: No other significant finding. IMPRESSION: Moderate free fluid and free gas predominately below the right hemidiaphragm suggest bow el rupture of unclear source. Urgent general surgery consultation advised. COMMENT: This report was called to EDUARDO TUCKER MD at00:23 on 03/01/2017. TECHNICAL DOCUMENTATION: JOB ID: [id number] Quality ID # [id number]: Final reports with documentation of one or more dose reduction techniques (e.g., Au tomated exposure control, adjustment of the mA and/or kV according to patient size, use of iterative reconstruction technique) 2010 [employer]- All Rights Reserved
[2017-03-01] MEDS ORDERED: NORMAL SALINE 1000 ML 1,000 ML IV ONE (00:34)
[2017-03-01] MEDS ORDERED: METRONIDAZOLE 500 MG/NS RTU 100 ML IV ONE (00:35)
[2017-03-01] MEDS ORDERED: LEVOFLOXACIN 750 MG/D5W RTU 150 ML IV ONE (00:35)
[2017-03-01] MEDS ORDERED: MIDAZOLAM 2 MG/2 ML INJ ONE (01:29)
[2017-03-01] MEDS ORDERED: FENTANYL CITRATE INJ/PF 250 MCG/5 ML AMPULE ONE (01:29)
[2017-03-01] MEDS ORDERED: FENTANYL CITRATE INJ/PF 100 MCG/2 ML AMPUL ONE (01:29)
[2017-03-01] MEDS ORDERED: MORPHINE SULFATE 10 MG/ML INJ ONE (01:30)
[2017-03-01] MEDS ORDERED: PROPOFOL INJ 200 MG/20 ML VIAL IV ONE (01:30)
[2017-03-01] MEDS ORDERED: ACETAMINOPHEN 100 ML IV ONE (01:30)
[2017-03-01] MEDS: MORPHINE SULFATE 10 MG/ML INJ IV PRN ×4 (01:43→17:12)
--- NOTE | 2017-03-01 02:23 | HISTORY AND PHYSICAL E ---
History and Physical NAME: RICKEY REID : [id number] AGE: 66Y ADMITTED: 03/01/2017 ROOM: ED60 CHIEF COMPLAINT: Abdominal pain. HISTORY OF PRESENT ILLNESS: This is a 66-year-old female, who complained of severe right flank pain around 12 noon of 02/28/17. Since then, she has been progressively complaining of pain and eventually went to the emergency room where a CAT scan of the abdomen revealed free air and fluid in the abdomen indicating perforated bowel. PAST MEDICAL HISTORY: 1. History of hypertension. 2. Asthma. 3. COPD. PAST SURGICAL HISTORY: 1. Appendectomy. 2. Colon resection with primary anastomosis. 3. Gynecologic surgery. 4. Also history of orthopedic surgery. SOCIAL HISTORY: Unknown if ever smoked. FAMILY HISTORY: Noncontributory. ALLERGIES: 1. PENICILLIN. 2. PREDNISONE. 3. CODEINE. 4. PROPOXYPHENE. PHYSICAL EXAMINATION: VITAL SIGNS: Temperature 97.4 degrees Fahrenheit, pulse 79 per minute, respiratory rate 16 per minute, blood pressure 120/76, and pulse ox of 97%. HEENT: Neck is supple. No thyromegaly. LUNGS: Clear. HEART: Regular sinus rhythm. ABDOMEN: With voluntary guarding and diffuse tenderness. EXTREMITIES: No edema. LABORATORY: White count of 12.8 and hemoglobin of 10.5. REVIEW OF SYSTEMS: As in HPI. Has some nausea. No other symptoms based on other systems. IMPRESSION: Acute abdomen with bowel perforation, etiology? PLAN: 1. IV antibiotics. 2. Hydration. 3. Emergency exploratory laparotomy for bowel perforation, possible bowel resection, possible colostomy. DICTATING PHYSICIAN: ANDREIA SALAZAR M.D. [id number] PHY#: [id number] ID: [id number] JOB#: [id number] ACCT: [id number] cc:Sujata CARTAGENA MD
[2017-03-01] MEDS ORDERED: MORPHINE SULFATE 10 MG/ML INJ IV PRN (02:53)
[2017-03-01] MEDS ORDERED: FENTANYL CITRATE INJ/PF 100 MCG/2 ML AMPUL IV PRN ×3 (02:53)
[2017-03-01] MEDS ORDERED: DIPHENHYDRAMINE HCL 50 MG/ML VIAL IV PRN (02:53)
[2017-03-01] MEDS ORDERED: PROMETHAZINE HCL INJ 25 MG/1 ML VIAL IV PRN ×2 (02:53)
[2017-03-01] MEDS ORDERED: MEPERIDINE HCL/PF INJ 25 MG/1 ML DISP.SYRIN IV PRN (02:53)
--- NOTE | 2017-03-01 04:23 | OPERATIVE REPORT E ---
Operative Report NAME: RICKEY REID : [id number] AGE: 66Y DATE OF SURGERY: 03/01/2017 ROOM: ED60 PREOPERATIVE DIAGNOSIS: PERFORATED BOWEL. POSTOPERATIVE DIAGNOSIS: PERFORATED GASTRIC ULCER AND EXTENSIVE ADHESIONS. OPERATION: Exploratory laparotomy, lysis of adhesions, primary repair of gastric ulcer with omental patch. SURGEON: ANDREIA SALAZAR M.D. ANESTHESIA: General. INDICATION: This is a 66-year-old female, who complained of abdominal pain around 12 noon yesterday. She came to the emergency room, where a CT scan of the abdomen revealed free air and fluid in the abdomen. DESCRIPTION OF PROCEDURE: After adequate general anesthesia, the abdomen was then prepped and draped in the usual sterile fashion. Appropriate timeout was obtained. Next, an incision made over the mid epigastric area, extended to below the umbilicus. The upper part of the incision was opened and fascia was further dissected distally, making sure that the bowel underneath was not injured. So this was done in a gingerly fashion. After the fascia was opened, again extensive adhesions were noted and these were gingerly lysed. Lysis of adhesions took at least 45 minutes. Finally, the area in the upper quadrant was opened and this was filled with light yellowish material with some exudate. Cultures were obtained. Further exploration led us to an area in the stomach that had perforation. It was not clear cut which area in the stomach, but it appeared to be more distal. There were extensive adhesions, which why it was difficult to ascertain the exact location. The gallbladder appeared intact. The ulcer had the liver abutted into it. A small piece of the gastric wall was obtained for biopsy, though there is no evidence of tumor grossly. The gastric opening was over 1 cm in diameter. Next, 4 simple sutures of 2-0 silk were placed to close the gastric perforation. A piece of omentum was sutured over the gastric repair and sutured gently to the wall of the stomach with 2-0 Vicryl. Following this, extensive irrigation of the abdomen was performed until return flow was clear. The fascia was then closed with running suture using #1 PDS. Next, the skin was then closed with henrietta. Needle, instrument and sponge counts were all correct. Estimated blood loss was around 20 mL. Sterile dressing was placed over the operative site. The patient tolerated the procedure well and brought to the Intensive Care Unit still intubated. The NG tube was placed right at the area of the gastric ulcer. DICTATING PHYSICIAN: ANDREIA SALAZAR M.D. [id number] PHY#: [id number] ID: [id number] JOB#: [id number] ACCT: [id number] cc:ANDREIA SALAZAR M.D. >
--- NOTE | 2017-03-01 04:40 | RADIOLOGY REPORT (SQ) ---
EXAM DESCRIPTION: CHEST SINGLE VIEW COMPLETED DATE/TIME: 03/01/2017 4:20 am REASON FOR STUDY: ETT placement COMPARISON: 02/09/2017. CT, 03/01/2017. EXAM PARAMETERS: NUMBER OF VIEWS: One view. TECHNIQUE: Single frontal radiographic view of the chest acquired. RADIATION DOSE: NA LIMITATIONS: None. FINDINGS: LUNGS AND PLEURA: Moderate right lung volume. Small right lower lobar scar as correlated with concurrent CT of the abdomen pelvis. MEDIASTINUM AND HILAR STRUCTURES: No masses. Contour normal. HEART AND VASCULAR STRUCTURES: Heart normal in size. Normal vasculature. BONES: No acute findings. HARDWARE: Adequate appearing endotracheal tube with tip, 2.3 cm from the aranza. Likely adequate ent kimber tube coursing over the left upper abdominal quadrant an off the image. OTHER: No other significant finding. IMPRESSION: NO ACUTE RADIOGRAPHIC FINDING IN THE CHEST. Lines and tubes. TECHNICAL DOCUMENTATION: JOB ID: [id number]
[2017-03-01] MEDS ORDERED: PROPOFOL 100 ML IV ONE (04:56)
[2017-03-01] MEDS: METRONIDAZOLE 500 MG/NS RTU 100 ML IV SCH ×3 (05:37→21:09)
[2017-03-01] MEDS: PROPOFOL 100 ML IV PRN ×4 (07:11→21:11)
[2017-03-01 07:18] LABS: HEMATOCRIT 34.6 % (36.0-47.0); HEMOGLOBIN 11.1 g/dL (12.0-15.5); HGB HCT DIFFERENCE -1.3; MEAN CORPUSCULAR HEMOGLOBIN 29.1 pg (27.0-33.4); MEAN CORPUSCULAR VOLUME 91 fl (80-97); RED BLOOD COUNT 3.79 10^6/uL (3.72-5.28); RED CELL DISTRIBUTION WIDTH 17.8 % (11.5-14.0); WHITE BLOOD COUNT 14.6 10^3/uL (4.0-10.5)
[2017-03-01 07:55] LABS: ANION GAP 7 (5-19); BLOOD UREA NITROGEN 11 mg/dL (7-20); CARBON DIOXIDE 22 mmol/L (22-30); CHLORIDE 101 mmol/L (98-107); CREATININE RESULT 0.67 mg/dL (0.52-1.25); GLUCOSE 87 mg/dL (75-110); PHOSPHORUS 3.7 mg/dL (2.5-4.5); POTASSIUM 4.4 mmol/L (3.6-5.0); SODIUM 129.8 mmol/L (137-145)
[2017-03-01 08:06] LABS: MAGNESIUM 1.2 mg/dL (1.6-2.3)
[2017-03-01] MEDS ORDERED: MIDAZOLAM HCL 100 ML IV ONE (08:49)
[2017-03-01] MEDS ORDERED: MAGNESIUM SULFATE/D5W 2 GM/200 ML RTUPB IV ONE (08:50)
[2017-03-01] MEDS ORDERED: MAGNESIUM SULFATE 1 GM/D5W 100 ML IV SCH (09:30)
--- NOTE | 2017-03-01 09:55 | PDOC CONSULTATION ---
Consultation Consult Date: 03/01/17 Attending physician:: ANDREIA SALAZAR Consult reason:: respiratory failure,asthma,COPD History of Present Illness Admission Date/PCP: 03/01/17 04:46 History of Present Illness: RICKEY REID is a 66 year old female 66 yo female s/p surgery for gastric perforation hx of asthma and COPD information from chart no one at bedside patient intubated Past Medical History Cardiac Medical History: Reports: Hypertension Pulmonary Medical History: Reports: Asthma, Chronic Obstructive Pulmonary Disease (COPD) Psychiatric Medical History: Reports: Depression Past Surgical History Past Surgical History: Reports: Appendectomy, Orthopedic Surgery Social History Smoking Status: Current Every Day Smoker Frequency of Alcohol Use: Social Drugs: None - Advance Directive Resuscitation Status: Full Code Family History Family History: Reviewed & Not Pertinent Parental Family History Reviewed: No Children Family History Reviewed: No Sibling(s) Family History Reviewed.: No Medication/Allergy Home Medications: Propranolol HCl [Inderal 20 mg Tablet] 20 mg PO QID 02/08/17 Famotidine [Pepcid 20 mg Tablet] 20 mg PO BID #14 tablet 02/09/17 Promethazine HCl [Phenergan 25 mg Tablet] 1 - 2 tab PO Q6H PRN #15 tablet Sulfamethoxazole/Trimethoprim [Bactrim Ds Tablet] 1 each PO BID #10 tablet 02/12 Cephalexin Monohydrate [Keflex 500 mg Capsule] 500 mg PO QID #28 capsule Phenazopyridine HCl [Pyridium 100 Mg Tablet] 100 mg PO TID #15 tablet 02/14/17 Allergies/Adverse Reactions: Penicillins Allergy (Verified 02/09/17 15:29) prednisone [Prednisone] Allergy (Verified 02/09/17 15:29) codeine phosphate [From Tylenol-Codeine] Adverse Reaction (Verified 02/09/17 15: 29) propoxyphene napsylate [From Darvocet-N 100] Adverse Reaction (Verified 15:29) Review of Systems ROS unobtainable: Due to endotracheal tube Physical Exam Vital Signs: Temp Pulse Resp BP Pulse Ox 98.4 F 112 H 12 82/58 L 99 03/01/17 04:34 03/01/17 04:34 03/01/17 07:21 03/01/17 07:21 03/01/17 08:22 General appearance: PRESENT: no acute distress, disheveled, thin, well-developed Head exam: PRESENT: atraumatic, normocephalic Eye exam: PRESENT: conjunctiva pale Mouth exam: PRESENT: moist, neck supple, other - ET tube in place Neck exam: ABSENT: carotid bruit, JVD, lymphadenopathy, thyromegaly Respiratory exam: PRESENT: decreased breath sounds, prolonged expiratory phas, rhonchi, symmetrical, unlabored Cardiovascular exam: PRESENT: RRR, +S1, +S2 Pulses: PRESENT: normal radial pulses GI/Abdominal exam: PRESENT: normal bowel sounds, soft. ABSENT: distended, guarding, mass, organolmegaly, rebound, tenderness Rectal exam: PRESENT: deferred Gentrourinary exam: PRESENT: indwelling catheter Musculoskeletal exam: PRESENT: normal inspection Skin exam: PRESENT: dry, warm Results Laboratory Results: 03/01/17 07:10 03/01/17 07:22 03/01/17 03/01/17 07:10 07:22 WBC 14.6 H RBC 3.79 Hgb 11.1 L Hct 34.6 L MCV 91 MCH 29.1 MCHC 32.0 RDW 17.8 H Plt Count 221 Sodium 129.8 L Potassium 4.4 Chloride 101 Carbon Dioxide 22 Anion Gap 7 BUN 11 Creatinine 0.67 Est GFR ( Amer) > 60 Est GFR (Non-Af Amer) > 60 Glucose 87 Calcium 8.0 L Phosphorus 3.7 Magnesium 1.2 L* Impressions: Abdomen/Pelvis CT 02/28/17 23:39 IMPRESSION: Moderate free fluid and free gas predominately below the right hemidiaphragm suggest bowel rupture of unclear source. Urgent general surgery consultation advised. Chest X-Ray 03/01/17 00:00 IMPRESSION: NO ACUTE RADIOGRAPHIC FINDING IN THE CHEST. Lines and tubes. Assessment & Plan - Diagnosis (1) Respiratory failure requiring intubation Is this a current diagnosis for this admission?: YesPlan: min vol;resp rate; FIO2 acceptable mental status ?? (2) Asthma Is this a current diagnosis for this admission?: YesPlan: bronchodialator tx (3) COPD (chronic obstructive pulmonary disease) Is this a current diagnosis for this admission?: YesPlan: bronchodilator tx (4) Bowel perforation Is this a current diagnosis for this admission?: YesPlan: as per surgery the pcp - Time Critical Time spent with patient: 35 or more minutes - 55 min
[2017-03-01] MEDS ORDERED: PANTOPRAZOLE SODIUM 80 MG in NORMAL SALINE 100 ML IV SCH (10:00)
[2017-03-01] MEDS ORDERED: SUCCINYLCHOLINE CHLORIDE INJ 200 MG/10 ML VIAL ONE (10:26)
[2017-03-01] MEDS ORDERED: ROCURONIUM BROMIDE INJ 50 MG/5 ML VIAL IV ONE (10:26)
[2017-03-01 11:15] LABS: ARTERIAL BLOOD BASE EXCESS -0.3 mmol/L; ARTERIAL BLOOD O2 SATURATION 97.3 % (94-98)
[2017-03-01] MEDS: PANTOPRAZOLE SODIUM 40 MG VIAL IV SCH (11:49)
[2017-03-01] MEDS: CIPROFLOXACIN 400 MG/D5W RTU 200 ML IV SCH ×2 (11:49→22:06)
[2017-03-01] MEDS: DEXTROSE 5%-NORMAL SALINE 1,000 ML IV PRN (11:51)
[2017-03-01] MEDS ORDERED: NOREPINEPHRINE BITARTRATE INJ/PF 4 MG/4 ML SDV IV ONE (12:18)
[2017-03-01] MEDS: DEXTROSE 5%-WATER 250 ML with NOREPINEPHRINE BITARTRATE 4 MG IV PRN ×2 (12:24)
--- NOTE | 2017-03-01 14:14 | PDOC CONSULTATION ---
Consultation Consult Date: 03/01/17 Attending physician:: ANDREIA SALAZAR Consult reason:: Hypotension History of Present Illness Admission Date/PCP: 03/01/17 04:46 Patient complains of: Intubated and sedated History of Present Illness: RICKEY REID is a 66 year old female who presented to the emergency room with right flank pain and CT scan showed a perforated bowel. She is status post repair of perforation and is in the intensive care unit. She is intubated and sedated and unable to give any history. The patient postoperatively has had some problems with hypotension and is placed on levo fed. Patient is on propofol for sedation and has been getting narcotics for pain control. Past Medical History Cardiac Medical History: Reports: Hypertension Pulmonary Medical History: Reports: Asthma, Chronic Obstructive Pulmonary Disease (COPD) EENT Medical History: Reports: None Neurological Medical History: Reports: None Endocrine Medical History: Reports: None Renal/ Medical History: Reports: None Malignancy Medical History: Reports: None GI Medical History: Reports: Other - History of partial colon resection Musculoskeltal Medical History: Reports: None Psychiatric Medical History: Reports: Depression Past Surgical History Past Surgical History: Reports: Appendectomy, Orthopedic Surgery Social History Information Source: [facility] Records Smoking Status: Current Every Day Smoker Frequency of Alcohol Use: Social Drugs: None - Advance Directive Resuscitation Status: Full Code Family History Family History: Unable to obtain secondary to the patient being intubated and sedated. Parental Family History Reviewed: No Children Family History Reviewed: No Sibling(s) Family History Reviewed.: No Medication/Allergy Home Medications: Albuterol Sulfate [Proair HFA] 2 puff IH Q3HP PRN 03/01/17 Bupropion HCl [Wellbutrin Xl 150 mg 24hr Tablet] 150 mg PO BID 03/01/17 Clonidine [Catapres-Tts 1 (0.1 mg/24 Hr) Transderm Patch] 1 patch TD .WEEKLY 07/08 Gabapentin [Neurontin] 600 mg PO BID 03/01/17 Ibandronate Sodium [Boniva] 150 mg PO [id number] 03/01/17 Meloxicam [Mobic 15 mg Tablet] 15 mg PO DAILY 03/01/17 Sertraline HCl [Zoloft] 100 mg PO DAILY 03/01/17 Allergies/Adverse Reactions: Penicillins Allergy (Verified 02/09/17 15:29) prednisone [Prednisone] Allergy (Verified 02/09/17 15:29) codeine phosphate [From Tylenol-Codeine] Adverse Reaction (Verified 02/09/17 15: 29) propoxyphene napsylate [From Darvocet-N 100] Adverse Reaction (Verified 15:29) Review of Systems ROS unobtainable: Due to endotracheal tube Physical Exam Vital Signs: Temp Pulse Resp BP Pulse Ox 97.6 F 98 14 88/51 L 100 03/01/17 11:55 03/01/17 11:55 03/01/17 11:55 03/01/17 11:55 03/01/17 13:05 Intake & Output 02/28/17 03/01/17 03/02/17 06:59 06:59 06:59 Output Total 475 Balance -475 General appearance: PRESENT: no acute distress, well-developed, well-nourished Eye exam: PRESENT: conjunctiva pink. ABSENT: scleral icterus Mouth exam: PRESENT: moist, tongue midline Neck exam: ABSENT: carotid bruit, JVD, lymphadenopathy, thyromegaly Respiratory exam: PRESENT: clear to auscultation ragini. ABSENT: rales, rhonchi, wheezes Cardiovascular exam: PRESENT: RRR. ABSENT: diastolic murmur, rubs, systolic murmur GI/Abdominal exam: PRESENT: other - Abdominal binder in place. Extremities exam: ABSENT: calf tenderness, clubbing, pedal edema Psychiatric exam: PRESENT: other - Unable to assess Skin exam: PRESENT: dry, intact, warm. ABSENT: cyanosis, rash Results Laboratory Results: 03/01/17 07:10 03/01/17 07:22 03/01/17 03/01/17 03/01/17 07:10 07:22 10:25 WBC 14.6 H RBC 3.79 Hgb 11.1 L Hct 34.6 L MCV 91 MCH 29.1 MCHC 32.0 RDW 17.8 H Plt Count 221 Carbonic Acid 1.33 HCO3/H2CO3 Ratio 18:1 ABG pH 7.37 ABG pCO2 44.2 ABG pO2 98.1 ABG HCO3 25.0 ABG O2 Saturation 97.3 ABG Base Excess -0.3 FiO2 25% Sodium 129.8 L Potassium 4.4 Chloride 101 Carbon Dioxide 22 Anion Gap 7 BUN 11 Creatinine 0.67 Est GFR ( Amer) > 60 Est GFR (Non-Af Amer) > 60 Glucose 87 Calcium 8.0 L Phosphorus 3.7 Magnesium 1.2 L* Impressions: Abdomen/Pelvis CT 02/28/17 23:39 IMPRESSION: Moderate free fluid and free gas predominately below the right hemidiaphragm suggest bowel rupture of unclear source. Urgent general surgery consultation advised. Chest X-Ray 03/01/17 00:00 IMPRESSION: NO ACUTE RADIOGRAPHIC FINDING IN THE CHEST. Lines and tubes. Assessment & Plan - Diagnosis (1) Hypotension Is this a current diagnosis for this admission?: YesPlan: Patient is currently on Levophed. She has been on antihypertensives are currently being held. We will continue with the IV fluids and vasopressors as needed. (2) Bowel perforation Is this a current diagnosis for this admission?: YesPlan: Patient is status post open surgical repair. (3) COPD (chronic obstructive pulmonary disease) Is this a current diagnosis for this admission?: Yes - Time Time Spent: 50 to 70 Minutes - Inpatient Certification Medical Necessity: Need Close Monitoring Due to Risk of Patient Decompensation, Need For IV Fluids
[2017-03-01 14:40] LABS: ABSOLUTE LYMPHOCYTES (AUTO) 1.4 10^3/uL (0.5-4.7); ABSOLUTE MONOCYTES (AUTO) 1.1 10^3/uL (0.1-1.4); ABSOLUTE NEUT (AUTO) 10.4 10^3/uL (1.7-8.2); BASOPHILS % (AUTO) 0.2 % (0-2); EOSINOPHILS % (AUTO) 0.1 % (0-6); HEMATOCRIT 29.1 % (36.0-47.0); HEMOGLOBIN 9.4 g/dL (12.0-15.5); HGB HCT DIFFERENCE -0.9; LYMPHOCYTES % (AUTO) 10.8 % (13-45); MEAN CORPUSCULAR HEMOGLOBIN 29.3 pg (27.0-33.4); MEAN CORPUSCULAR HGB CONC 32.2 g/dL (32.0-36.0); MEAN CORPUSCULAR VOLUME 91 fl (80-97); MONOCYTES % (AUTO) 8.5 % (3-13); RED BLOOD COUNT 3.21 10^6/uL (3.72-5.28); RED CELL DISTRIBUTION WIDTH 17.5 % (11.5-14.0); SEGMENTED NEUTROPHILS % (AUTO) 80.4 % (42-78); WHITE BLOOD COUNT 12.9 10^3/uL (4.0-10.5)
[2017-03-01 14:57] LABS: ANION GAP 6 (5-19); BLOOD UREA NITROGEN 10 mg/dL (7-20); CALCIUM 8.1 mg/dL (8.4-10.2); CARBON DIOXIDE 22 mmol/L (22-30); CHLORIDE 103 mmol/L (98-107); CREATININE RESULT 0.74 mg/dL (0.52-1.25); GLUCOSE 116 mg/dL (75-110); POTASSIUM 4.7 mmol/L (3.6-5.0); SODIUM 130.7 mmol/L (137-145)
[2017-03-01 15:06] LABS: MAGNESIUM 2.2 mg/dL (1.6-2.3)
[2017-03-01] MEDS ORDERED: NORMAL SALINE 500 ML IV ONE (18:30)
[2017-03-01] MEDS: MIDAZOLAM HCL 100 ML IV PRN (19:31)
[2017-03-02] MEDS: MORPHINE SULFATE 10 MG/ML INJ IV PRN ×4 (00:12→15:44)
[2017-03-02] MEDS: DEXTROSE 5%-WATER 250 ML with NOREPINEPHRINE BITARTRATE 4 MG IV PRN ×2 (03:04)
[2017-03-02] MEDS: MIDAZOLAM HCL 100 ML IV PRN ×3 (03:41→19:31)
[2017-03-02 04:15] LABS: ALANINE AMINOTRANSFERASE 31 U/L (9-52); ALBUMIN 2.8 g/dL (3.5-5.0); ALKALINE PHOSPHATASE 120 U/L (38-126); ANION GAP 9 (5-19); ASPARTATE AMINO TRANSFERASE 38 U/L (14-36); BILIRUBIN,DIRECT 0.3 mg/dL (0.0-0.4); BILIRUBIN,TOTAL 0.3 mg/dL (0.2-1.3); BLOOD UREA NITROGEN 8 mg/dL (7-20); CALCIUM 8.5 mg/dL (8.4-10.2); CARBON DIOXIDE 21 mmol/L (22-30); CHLORIDE 105 mmol/L (98-107); CREATININE RESULT 0.71 mg/dL (0.52-1.25); GLUCOSE 107 mg/dL (75-110); MAGNESIUM 2.1 mg/dL (1.6-2.3); PHOSPHORUS 3.2 mg/dL (2.5-4.5); POTASSIUM 4.3 mmol/L (3.6-5.0); SODIUM 134.7 mmol/L (137-145); TOTAL PROTEIN 5.8 g/dL (6.3-8.2)
[2017-03-02 04:44] LABS: ARTERIAL BLOOD BASE EXCESS -1.5 mmol/L
[2017-03-02] MEDS: PROPOFOL 100 ML IV PRN ×4 (04:44→22:55)
[2017-03-02] MEDS: METRONIDAZOLE 500 MG/NS RTU 100 ML IV SCH ×3 (05:39→22:56)
--- NOTE | 2017-03-02 07:35 | RADIOLOGY REPORT (SQ) ---
EXAM DESCRIPTION: CHEST SINGLE VIEW COMPLETED DATE/TIME: 03/02/2017 7:16 am REASON FOR STUDY: resp failure COMPARISON: 03/01/2017. NUMBER OF VIEWS: One view. TECHNIQUE: Single frontal radiographic view of the chest acquired. LIMITATIONS: None. FINDINGS: LUNGS AND PLEURA: No opacities, masses or pneumothorax. No pleural effusion. Attenuated bl ood vessels and flattened ayanna-diaphragms. MEDIASTINUM AND HILAR STRUCTURES: No masses. Contour normal. HEART AND VASCULAR STRUCTURES: Heart normal in size. Normal vasculature. BONES: No acute findings. HARDWARE: Stable endotracheal tube and nasogastric tube. OTHER: No other significant finding. IMPRESSION: COPD. STABLE SUPPORT DEVICES. NO ACUTE RADIOGRAPHIC FINDING IN THE CHEST. TECHNICAL DOCUMENTATION: JOB ID: [id number] [employer]- All Rights Reserved
--- NOTE | 2017-03-02 08:52 | PDOC PROGRESS REPORT ---
Subjective Progress Note for:: 03/02/17 Subjective:: Patient is intubated and sedated. Physical Exam Vital Signs: Temp Pulse Resp BP Pulse Ox 99 F 94 22 H 134/58 H 100 03/02/17 08:00 03/02/17 08:45 03/02/17 08:45 03/02/17 06:06 03/02/17 08:45 Intake & Output 03/01/17 03/02/17 03/03/17 06:59 06:59 06:59 Intake Total 3244 Output Total 2120 125 Balance 1124 -125 Weight 48.6 kg General appearance: PRESENT: no acute distress Eye exam: PRESENT: conjunctiva pink. ABSENT: scleral icterus Mouth exam: PRESENT: moist, tongue midline Neck exam: ABSENT: JVD Respiratory exam: PRESENT: clear to auscultation ragini. ABSENT: rales, rhonchi, wheezes Cardiovascular exam: PRESENT: RRR. ABSENT: diastolic murmur, rubs, systolic murmur GI/Abdominal exam: PRESENT: other - Abdominal binder in place Extremities exam: ABSENT: calf tenderness, clubbing, pedal edema Neurological exam: PRESENT: other - Intubated and sedated. Focused psych exam: PRESENT: other - Unable to assess Skin exam: PRESENT: dry, intact, warm. ABSENT: cyanosis, rash Results Laboratory Results: 03/01/17 14:18 03/02/17 03:57 03/01/17 03/01/17 03/01/17 10:25 14:18 14:18 WBC 12.9 H RBC 3.21 L Hgb 9.4 L Hct 29.1 L MCV 91 MCH 29.3 MCHC 32.2 RDW 17.5 H Plt Count 283 Seg Neutrophils % 80.4 H Lymphocytes % 10.8 L Monocytes % 8.5 Eosinophils % 0.1 Basophils % 0.2 Absolute Neutrophils 10.4 H Absolute Lymphocytes 1.4 Absolute Monocytes 1.1 Absolute Eosinophils 0.0 Absolute Basophils 0.0 Carbonic Acid 1.33 HCO3/H2CO3 Ratio 18:1 ABG pH 7.37 ABG pCO2 44.2 ABG pO2 98.1 ABG HCO3 25.0 ABG O2 Saturation 97.3 ABG Base Excess -0.3 FiO2 25% Sodium 130.7 L Potassium 4.7 Chloride 103 Carbon Dioxide 22 Anion Gap 6 BUN 10 Creatinine 0.74 Est GFR ( Amer) > 60 Est GFR (Non-Af Amer) > 60 Glucose 116 H Calcium 8.1 L Phosphorus Magnesium 2.2 D Total Bilirubin AST ALT Alkaline Phosphatase Total Protein Albumin 03/02/17 03/02/17 03:57 04:35 WBC RBC Hgb Hct MCV MCH MCHC RDW Plt Count Seg Neutrophils % Lymphocytes % Monocytes % Eosinophils % Basophils % Absolute Neutrophils Absolute Lymphocytes Absolute Monocytes Absolute Eosinophils Absolute Basophils Carbonic Acid 1.17 HCO3/H2CO3 Ratio 19:1 ABG pH 7.40 ABG pCO2 38.8 ABG pO2 81.8 ABG HCO3 23.2 ABG O2 Saturation 96.0 ABG Base Excess -1.5 FiO2 25% Sodium 134.7 L Potassium 4.3 Chloride 105 Carbon Dioxide 21 L Anion Gap 9 BUN 8 Creatinine 0.71 Est GFR ( Amer) > 60 Est GFR (Non-Af Amer) > 60 Glucose 107 Calcium 8.5 Phosphorus 3.2 Magnesium 2.1 Total Bilirubin 0.3 AST 38 H ALT 31 Alkaline Phosphatase 120 Total Protein 5.8 L Albumin 2.8 L Impressions: Abdomen/Pelvis CT 02/28/17 23:39 IMPRESSION: Moderate free fluid and free gas predominately below the right hemidiaphragm suggest bowel rupture of unclear source. Urgent general surgery consultation advised. Chest X-Ray 03/02/17 06:00 IMPRESSION: COPD. STABLE SUPPORT DEVICES. NO ACUTE RADIOGRAPHIC FINDING IN THE CHEST. Assessment & Plan - Diagnosis (1) Hypotension Is this a current diagnosis for this admission?: YesPlan: Improved. Patient is on low-dose Levophed currently. Received IV fluids last night. (2) Bowel perforation Is this a current diagnosis for this admission?: YesPlan: Patient is status post open surgical repair. (3) COPD (chronic obstructive pulmonary disease) Is this a current diagnosis for this admission?: YesPlan: Nebulizers as needed. Her respiratory status is doing well and she can probably be extubated today. - Time Time Spent with patient: 15-24 minutes - Inpatient Certification Medical Necessity: Need Close Monitoring Due to Risk of Patient Decompensation - Plan Summary Plan Summary: Patient is being followed by pulmonary medicine. Hopefully she can be extubated today.
[2017-03-02] MEDS: PANTOPRAZOLE SODIUM 40 MG VIAL IV SCH (09:58)
[2017-03-02] MEDS: CIPROFLOXACIN 400 MG/D5W RTU 200 ML IV SCH ×2 (09:58→22:55)
[2017-03-02] MEDS: DEXTROSE 5%-NORMAL SALINE 1,000 ML IV PRN ×2 (09:59→22:56)
[2017-03-02] MEDS ORDERED: PHARMACY COMMUNICATION ORDER MC NR (10:45)
--- NOTE | 2017-03-02 12:18 | PROGRESS NOTE E ---
Progress Note NAME: RICKEY REID : 1950 AGE: 66Y DATE: 03/02/2017 ROOM: 601 SUBJECTIVE: She is still intubated and failed attempt to extubate. Patient being followed by Dr. Avila, the ctrs. Still having some incisional pains and relieved with the morphine. OBJECTIVE: Her NG drainage is about 100 mL from last night. Her abdomen is soft and incision appears clean and dry. DIAGNOSTIC DATA: Her white count 12.9, yesterday afternoon. Hemoglobin is at 9.4. She is on a FIO2 of 25% with a PO2 of 81.8. Electrolytes are within normal limits. PLAN: We will have to keep her another day on the respirator. She is off pressors at this time. Continue IV antibiotics and DVT prophylaxis. DICTATING PHYSICIAN: ANDREIA SALAZAR M.D. [id number] PHY#: [id number] ID: [id number] JOB#: [id number] ACCT: [id number] cc: >
[2017-03-02] MEDS: HEPARIN SOD (PORCINE) 5,000 UNIT/ML 1 ML SYRINGE SUBCUT SCH (22:57)
[2017-03-03] MEDS: MORPHINE SULFATE 10 MG/ML INJ IV PRN ×4 (00:57→22:41)
[2017-03-03] MEDS: MIDAZOLAM HCL 100 ML IV PRN ×3 (03:07→16:41)
[2017-03-03 04:37] LABS: ABSOLUTE EOSINOPHILS # (AUTO) 0.2 10^3/uL (0.0-0.6); ABSOLUTE MONOCYTES (AUTO) 0.5 10^3/uL (0.1-1.4); ABSOLUTE NEUT (AUTO) 5.1 10^3/uL (1.7-8.2); BASOPHILS % (AUTO) 0.3 % (0-2); EOSINOPHILS % (AUTO) 2.5 % (0-6); HEMATOCRIT 22.9 % (36.0-47.0); HGB HCT DIFFERENCE -0.1; MEAN CORPUSCULAR HEMOGLOBIN 30.1 pg (27.0-33.4); MEAN CORPUSCULAR VOLUME 91 fl (80-97); MONOCYTES % (AUTO) 7.5 % (3-13); RED BLOOD COUNT 2.51 10^6/uL (3.72-5.28); RED CELL DISTRIBUTION WIDTH 17.4 % (11.5-14.0); SEGMENTED NEUTROPHILS % (AUTO) 75.7 % (42-78); WHITE BLOOD COUNT 6.8 10^3/uL (4.0-10.5)
[2017-03-03 04:51] LABS: ALANINE AMINOTRANSFERASE 29 U/L (9-52); ALBUMIN 2.1 g/dL (3.5-5.0); ALKALINE PHOSPHATASE 84 U/L (38-126); ANION GAP 5 (5-19); ASPARTATE AMINO TRANSFERASE 27 U/L (14-36); BILIRUBIN,DIRECT 0.3 mg/dL (0.0-0.4); BILIRUBIN,TOTAL 0.3 mg/dL (0.2-1.3); BLOOD UREA NITROGEN 3 mg/dL (7-20); CALCIUM 7.9 mg/dL (8.4-10.2); CARBON DIOXIDE 21 mmol/L (22-30); CHLORIDE 110 mmol/L (98-107); GLUCOSE 103 mg/dL (75-110); MAGNESIUM 1.6 mg/dL (1.6-2.3); POTASSIUM 3.6 mmol/L (3.6-5.0); SODIUM 136.4 mmol/L (137-145); TOTAL PROTEIN 4.5 g/dL (6.3-8.2)
[2017-03-03 04:59] LABS: HEMOGLOBIN 7.6 g/dL (12.0-15.5)
[2017-03-03] MEDS: PROPOFOL 100 ML IV PRN ×4 (05:30→20:36)
[2017-03-03] MEDS: METRONIDAZOLE 500 MG/NS RTU 100 ML IV SCH ×3 (05:30→21:50)
[2017-03-03 05:38] LABS: ARTERIAL BLOOD BASE EXCESS -1.2 mmol/L
--- NOTE | 2017-03-03 07:29 | RADIOLOGY REPORT (SQ) ---
EXAM DESCRIPTION: CHEST SINGLE VIEW COMPLETED DATE/TIME: 03/03/2017 6:59 am REASON FOR STUDY: resp failure COMPARISON: 03/02/2017. 02/09/2017. 03/01/2017. EXAM PARAMETERS: NUMBER OF VIEWS: One view. TECHNIQUE: Single frontal radiographic view of the chest acquired. RADIATION DOSE: NA LIMITATIONS: None. FINDINGS: LUNGS AND PLEURA: Small-moderate layered effusion -opacity of bilateral lung bases, mild i nterstitial markings. MEDIASTINUM AND HILAR STRUCTURES: No masses. Contour normal. HEART AND VASCULAR STRUCTURES: Heart normal in size. Normal vasculature. BONES: No acute findings. HARDWARE: Tip of an endotracheal tube is 2 cm from the aranza. Likely adequate nasogastric tube tip courses inferiorly off the image over the left paracentral abdomen. OTHER: No other significant finding. IMPRESSION: Small-moderate layered effusion -opacity of bilateral lung bases, right more than left. Differential diagnosis includes pneumonia lines and tubes. TECHNICAL DOCUMENTATION: JOB ID: [id number]
[2017-03-03] MEDS ORDERED: NORMAL SALINE 250 ML IV PRN ×3 (07:34→08:05)
--- NOTE | 2017-03-03 09:08 | PDOC PROGRESS REPORT ---
Subjective Progress Note for:: 03/03/17 Subjective:: Patient is intubated and sedated. Physical Exam Vital Signs: Temp Pulse Resp BP Pulse Ox 97.6 F 105 H 24 H 160/79 H 100 03/03/17 08:00 03/03/17 07:34 03/03/17 07:21 03/03/17 07:21 03/03/17 07:21 Intake & Output 03/02/17 03/03/17 03/04/17 06:59 06:59 06:59 Intake Total 3244 3413 Output Total 2120 2380 175 Balance 1124 1033 -175 Weight 48.6 kg 50.5 kg General appearance: PRESENT: no acute distress Eye exam: PRESENT: conjunctiva pink. ABSENT: scleral icterus Ear exam: PRESENT: normal external ear exam Mouth exam: PRESENT: moist, tongue midline Neck exam: ABSENT: JVD Respiratory exam: PRESENT: clear to auscultation ragini. ABSENT: rales, rhonchi, wheezes Cardiovascular exam: PRESENT: tachycardia. ABSENT: diastolic murmur, rubs, systolic murmur GI/Abdominal exam: PRESENT: other - Abdominal binder in place. Surgical wound is dry and intact. Extremities exam: ABSENT: calf tenderness, clubbing, pedal edema Neurological exam: PRESENT: other - Intubated and sedated Psychiatric exam: PRESENT: other - Unable to assess Skin exam: PRESENT: dry, intact, warm. ABSENT: cyanosis, rash Results Laboratory Results: 03/03/17 04:19 03/03/17 04:19 03/03/17 03/03/17 03/03/17 04:19 04:19 05:25 WBC 6.8 RBC 2.51 L Hgb 7.6 L Hct 22.9 L MCV 91 MCH 30.1 MCHC 33.0 RDW 17.4 H Plt Count 294 Seg Neutrophils % 75.7 Lymphocytes % 14.0 Monocytes % 7.5 Eosinophils % 2.5 Basophils % 0.3 Absolute Neutrophils 5.1 Absolute Lymphocytes 1.0 Absolute Monocytes 0.5 Absolute Eosinophils 0.2 Absolute Basophils 0.0 Carbonic Acid 1.06 HCO3/H2CO3 Ratio 21:1 ABG pH 7.43 ABG pCO2 35.3 ABG pO2 87.7 ABG HCO3 22.9 ABG O2 Saturation 97.0 ABG Base Excess -1.2 FiO2 25% Sodium 136.4 L Potassium 3.6 Chloride 110 H Carbon Dioxide 21 L Anion Gap 5 BUN 3 L Creatinine 0.60 Est GFR ( Amer) > 60 Est GFR (Non-Af Amer) > 60 Glucose 103 Calcium 7.9 L Magnesium 1.6 Total Bilirubin 0.3 AST 27 ALT 29 Alkaline Phosphatase 84 Total Protein 4.5 L Albumin 2.1 L Impressions: Abdomen/Pelvis CT 02/28/17 23:39 IMPRESSION: Moderate free fluid and free gas predominately below the right hemidiaphragm suggest bowel rupture of unclear source. Urgent general surgery consultation advised. Chest X-Ray 03/03/17 06:00 IMPRESSION: Small-moderate layered effusion -opacity of bilateral lung bases, right more than left. Differential diagnosis includes pneumonia lines and tubes. Assessment & Plan - Diagnosis (1) Hypotension Is this a current diagnosis for this admission?: YesPlan: Improved. Patient has anemia and we will transfuse 2 units of packed red blood cells today. (2) Bowel perforation Is this a current diagnosis for this admission?: YesPlan: Patient is status post open surgical repair. (3) COPD (chronic obstructive pulmonary disease) Is this a current diagnosis for this admission?: YesPlan: Nebulizers as needed. Patient failed her weaning parameters yesterday. She is being followed by pulmonary medicine. (4) Anemia Is this a current diagnosis for this admission?: YesPlan: Will transfuse 2 units packed red blood cells. - Time Time Spent with patient: 25-34 minutes - Inpatient Certification Medical Necessity: Need Close Monitoring Due to Risk of Patient Decompensation, Need for IV Antibiotics
[2017-03-03] MEDS: CIPROFLOXACIN 400 MG/D5W RTU 200 ML IV SCH (09:11)
[2017-03-03] MEDS: PANTOPRAZOLE SODIUM 40 MG VIAL IV SCH (09:12)
[2017-03-03] MEDS: FUROSEMIDE INJ/PF 20 MG/2 ML SDV IV SCH ×2 (09:12→21:50)
[2017-03-03] MEDS: HEPARIN SOD (PORCINE) 5,000 UNIT/ML 1 ML SYRINGE SUBCUT SCH ×2 (09:12→21:51)
--- NOTE | 2017-03-03 10:50 | PDOC PROGRESS REPORT ---
Subjective Progress Note for:: 03/03/17 Subjective:: Patient is intubated, sedated; she remains hemodynamically stable with adequate urine output. Nasogastric drainage clear, minimal. There is no abdominal drain. Physical Exam Vital Signs: Temp Pulse Resp BP Pulse Ox 97.6 F 105 H 24 H 160/79 H 100 03/03/17 08:00 03/03/17 07:34 03/03/17 07:21 03/03/17 07:21 03/03/17 07:21 Intake & Output 03/02/17 03/03/17 03/04/17 06:59 06:59 06:59 Intake Total 3244 3413 Output Total 2120 2380 175 Balance 1124 1033 -175 Weight 48.6 kg 50.5 kg General appearance: PRESENT: other - Sedated, intubated. GI/Abdominal exam: PRESENT: other - Position is stapled closed. Dressing removed. No abdominal distention. Results Laboratory Results: 03/03/17 04:19 03/03/17 04:19 03/03/17 03/03/17 03/03/17 04:19 04:19 05:25 WBC 6.8 RBC 2.51 L Hgb 7.6 L Hct 22.9 L MCV 91 MCH 30.1 MCHC 33.0 RDW 17.4 H Plt Count 294 Seg Neutrophils % 75.7 Lymphocytes % 14.0 Monocytes % 7.5 Eosinophils % 2.5 Basophils % 0.3 Absolute Neutrophils 5.1 Absolute Lymphocytes 1.0 Absolute Monocytes 0.5 Absolute Eosinophils 0.2 Absolute Basophils 0.0 Carbonic Acid 1.06 HCO3/H2CO3 Ratio 21:1 ABG pH 7.43 ABG pCO2 35.3 ABG pO2 87.7 ABG HCO3 22.9 ABG O2 Saturation 97.0 ABG Base Excess -1.2 FiO2 25% Sodium 136.4 L Potassium 3.6 Chloride 110 H Carbon Dioxide 21 L Anion Gap 5 BUN 3 L Creatinine 0.60 Est GFR ( Amer) > 60 Est GFR (Non-Af Amer) > 60 Glucose 103 Calcium 7.9 L Magnesium 1.6 Total Bilirubin 0.3 AST 27 ALT 29 Alkaline Phosphatase 84 Total Protein 4.5 L Albumin 2.1 L Impressions: Abdomen/Pelvis CT 02/28/17 23:39 IMPRESSION: Moderate free fluid and free gas predominately below the right hemidiaphragm suggest bowel rupture of unclear source. Urgent general surgery consultation advised. Chest X-Ray 03/03/17 06:00 IMPRESSION: Small-moderate layered effusion -opacity of bilateral lung bases, right more than left. Differential diagnosis includes pneumonia lines and tubes. Assessment & Plan - Diagnosis (1) Bowel perforation Is this a current diagnosis for this admission?: YesPlan: 1. Patient is postoperative day 2 status post exploratory laparotomy, oversewing of perforated peptic ulcer, doing well from an immediate postoperative standpoint, no complications. 2. Extubation later today or tomorrow pending patient's respiratory performance status 3. Agree with plans for blood transfusion. (2) COPD (chronic obstructive pulmonary disease) Is this a current diagnosis for this admission?: Yes
[2017-03-03] MEDS ORDERED: METRONIDAZOLE 500 MG TABLET NG SCH (14:00)
[2017-03-03] MEDS: DEXTROSE 5%-NORMAL SALINE 1,000 ML IV PRN (16:41)
--- NOTE | 2017-03-03 17:22 | PDOC PROGRESS REPORT ---
Subjective Progress Note for:: 03/03/17 Subjective:: intubated sedated Physical Exam Vital Signs: Temp Pulse Resp BP Pulse Ox 98.7 F 105 H 24 H 160/79 H 100 03/03/17 04:00 03/03/17 07:34 03/03/17 07:21 03/03/17 07:21 03/03/17 07:21 Intake & Output 03/02/17 03/03/17 03/04/17 06:59 06:59 06:59 Intake Total 3244 3413 Output Total 2120 2380 Balance 1124 1033 Weight 48.6 kg 50.5 kg General appearance: PRESENT: no acute distress, disheveled, thin, well-developed Head exam: PRESENT: atraumatic, normocephalic Eye exam: PRESENT: conjunctiva pale Mouth exam: PRESENT: moist, neck supple, other - ET tube Neck exam: PRESENT: carotid bruit Respiratory exam: PRESENT: decreased breath sounds, prolonged expiratory phas, rhonchi, symmetrical, unlabored Cardiovascular exam: PRESENT: RRR, +S1, +S2 Pulses: PRESENT: normal radial pulses GI/Abdominal exam: PRESENT: other - s/p surgery Rectal exam: PRESENT: deferred Gentrourinary exam: PRESENT: indwelling catheter Musculoskeletal exam: PRESENT: normal inspection Skin exam: PRESENT: dry, warm Results Laboratory Results: 03/03/17 04:19 03/03/17 04:19 03/03/17 03/03/17 03/03/17 04:19 04:19 05:25 WBC 6.8 RBC 2.51 L Hgb 7.6 L Hct 22.9 L MCV 91 MCH 30.1 MCHC 33.0 RDW 17.4 H Plt Count 294 Seg Neutrophils % 75.7 Lymphocytes % 14.0 Monocytes % 7.5 Eosinophils % 2.5 Basophils % 0.3 Absolute Neutrophils 5.1 Absolute Lymphocytes 1.0 Absolute Monocytes 0.5 Absolute Eosinophils 0.2 Absolute Basophils 0.0 Carbonic Acid 1.06 HCO3/H2CO3 Ratio 21:1 ABG pH 7.43 ABG pCO2 35.3 ABG pO2 87.7 ABG HCO3 22.9 ABG O2 Saturation 97.0 ABG Base Excess -1.2 FiO2 25% Sodium 136.4 L Potassium 3.6 Chloride 110 H Carbon Dioxide 21 L Anion Gap 5 BUN 3 L Creatinine 0.60 Est GFR ( Amer) > 60 Est GFR (Non-Af Amer) > 60 Glucose 103 Calcium 7.9 L Magnesium 1.6 Total Bilirubin 0.3 AST 27 ALT 29 Alkaline Phosphatase 84 Total Protein 4.5 L Albumin 2.1 L Impressions: Abdomen/Pelvis CT 02/28/17 23:39 IMPRESSION: Moderate free fluid and free gas predominately below the right hemidiaphragm suggest bowel rupture of unclear source. Urgent general surgery consultation advised. Chest X-Ray 03/03/17 06:00 IMPRESSION: Small-moderate layered effusion -opacity of bilateral lung bases, right more than left. Differential diagnosis includes pneumonia lines and tubes. Assessment & Plan - Diagnosis (1) Respiratory failure requiring intubation Is this a current diagnosis for this admission?: YesPlan: min vol;resp rate; FIO2 acceptable mental status ?? H/H drops 2 grams (2) Asthma Is this a current diagnosis for this admission?: YesPlan: bronchodialator tx (3) COPD (chronic obstructive pulmonary disease) Is this a current diagnosis for this admission?: Yes (4) Bowel perforation Is this a current diagnosis for this admission?: Yes (5) Addiction to drug Is this a current diagnosis for this admission?: Yes - Plan Summary Plan Summary: hopefully can extubate in am
--- NOTE | 2017-03-03 17:25 | PDOC PROGRESS REPORT ---
Subjective Progress Note for:: 03/02/17 Subjective:: intubated sedated Physical Exam Vital Signs: Temp Pulse Resp BP Pulse Ox 98.4 F 90 19 134/58 H 100 03/02/17 04:00 03/01/17 20:18 03/02/17 06:06 03/02/17 06:06 03/02/17 06:06 Intake & Output 03/01/17 03/02/17 03/03/17 06:59 06:59 06:59 Intake Total 3244 Output Total 2120 Balance 1124 Weight 48.6 kg General appearance: PRESENT: disheveled, thin, well-developed Head exam: PRESENT: atraumatic, normocephalic Eye exam: PRESENT: conjunctiva pale Mouth exam: PRESENT: moist, neck supple, other - ET tube Neck exam: ABSENT: carotid bruit, JVD, lymphadenopathy, thyromegaly Respiratory exam: PRESENT: decreased breath sounds, prolonged expiratory phas, rhonchi, unlabored Cardiovascular exam: PRESENT: RRR, +S1, +S2 GI/Abdominal exam: PRESENT: normal bowel sounds, soft. ABSENT: distended, guarding, mass, organolmegaly, rebound, tenderness Rectal exam: PRESENT: deferred Gentrourinary exam: PRESENT: indwelling catheter Musculoskeletal exam: PRESENT: normal inspection Skin exam: PRESENT: dry, warm Results Laboratory Results: 03/01/17 14:18 03/02/17 03:57 03/01/17 03/01/17 03/01/17 07:22 10:25 14:18 WBC 12.9 H RBC 3.21 L Hgb 9.4 L Hct 29.1 L MCV 91 MCH 29.3 MCHC 32.2 RDW 17.5 H Plt Count 283 Seg Neutrophils % 80.4 H Lymphocytes % 10.8 L Monocytes % 8.5 Eosinophils % 0.1 Basophils % 0.2 Absolute Neutrophils 10.4 H Absolute Lymphocytes 1.4 Absolute Monocytes 1.1 Absolute Eosinophils 0.0 Absolute Basophils 0.0 Carbonic Acid 1.33 HCO3/H2CO3 Ratio 18:1 ABG pH 7.37 ABG pCO2 44.2 ABG pO2 98.1 ABG HCO3 25.0 ABG O2 Saturation 97.3 ABG Base Excess -0.3 FiO2 25% Sodium 129.8 L Potassium 4.4 Chloride 101 Carbon Dioxide 22 Anion Gap 7 BUN 11 Creatinine 0.67 Est GFR ( Amer) > 60 Est GFR (Non-Af Amer) > 60 Glucose 87 Calcium 8.0 L Phosphorus 3.7 Magnesium 1.2 L* Total Bilirubin AST ALT Alkaline Phosphatase Total Protein Albumin 03/01/17 03/02/17 03/02/17 14:18 03:57 04:35 WBC RBC Hgb Hct MCV MCH MCHC RDW Plt Count Seg Neutrophils % Lymphocytes % Monocytes % Eosinophils % Basophils % Absolute Neutrophils Absolute Lymphocytes Absolute Monocytes Absolute Eosinophils Absolute Basophils Carbonic Acid 1.17 HCO3/H2CO3 Ratio 19:1 ABG pH 7.40 ABG pCO2 38.8 ABG pO2 81.8 ABG HCO3 23.2 ABG O2 Saturation 96.0 ABG Base Excess -1.5 FiO2 25% Sodium 130.7 L 134.7 L Potassium 4.7 4.3 Chloride 103 105 Carbon Dioxide 22 21 L Anion Gap 6 9 BUN 10 8 Creatinine 0.74 0.71 Est GFR ( Amer) > 60 > 60 Est GFR (Non-Af Amer) > 60 > 60 Glucose 116 H 107 Calcium 8.1 L 8.5 Phosphorus 3.2 Magnesium 2.2 D 2.1 Total Bilirubin 0.3 AST 38 H ALT 31 Alkaline Phosphatase 120 Total Protein 5.8 L Albumin 2.8 L Impressions: Abdomen/Pelvis CT 02/28/17 23:39 IMPRESSION: Moderate free fluid and free gas predominately below the right hemidiaphragm suggest bowel rupture of unclear source. Urgent general surgery consultation advised. Chest X-Ray 03/02/17 06:00 IMPRESSION: COPD. STABLE SUPPORT DEVICES. NO ACUTE RADIOGRAPHIC FINDING IN THE CHEST. Assessment & Plan - Diagnosis (1) Respiratory failure requiring intubation Is this a current diagnosis for this admission?: YesPlan: min vol;resp rate; FIO2 acceptable mental status ?? very agitated when sedation decreased (2) Asthma Is this a current diagnosis for this admission?: Yes (3) COPD (chronic obstructive pulmonary disease) Is this a current diagnosis for this admission?: Yes (4) Bowel perforation Is this a current diagnosis for this admission?: Yes - Time Critical Time spent with patient: 25-34 minutes
[2017-03-03 19:26] LABS: HEMATOCRIT 33.8 % (36.0-47.0); HGB HCT DIFFERENCE -0.8; MEAN CORPUSCULAR HEMOGLOBIN 28.7 pg (27.0-33.4); MEAN CORPUSCULAR HGB CONC 32.7 g/dL (32.0-36.0); MEAN CORPUSCULAR VOLUME 88 fl (80-97); RED BLOOD COUNT 3.84 10^6/uL (3.72-5.28); RED CELL DISTRIBUTION WIDTH 17.7 % (11.5-14.0); WHITE BLOOD COUNT 8.6 10^3/uL (4.0-10.5)
[2017-03-03] MEDS: CIPROFLOXACIN 400 MG/D5W RTU 400 MG/200 ML RTUPB IV SCH (21:49)
[2017-03-03] MEDS ORDERED: CIPROFLOXACIN HCL 500 MG TABLET NG SCH (22:00)
[2017-03-04] MEDS: MIDAZOLAM HCL 100 ML IV PRN ×4 (00:36→21:38)
[2017-03-04] MEDS: PROPOFOL 100 ML IV PRN ×4 (04:09→19:06)
[2017-03-04 04:23] LABS: ALANINE AMINOTRANSFERASE 27 U/L (9-52); ALBUMIN 2.6 g/dL (3.5-5.0); ALKALINE PHOSPHATASE 106 U/L (38-126); ANION GAP 10 (5-19); ASPARTATE AMINO TRANSFERASE 28 U/L (14-36); BILIRUBIN,DIRECT 0.4 mg/dL (0.0-0.4); BILIRUBIN,TOTAL 0.6 mg/dL (0.2-1.3); BLOOD UREA NITROGEN 3 mg/dL (7-20); CALCIUM 7.9 mg/dL (8.4-10.2); CARBON DIOXIDE 25 mmol/L (22-30); CHLORIDE 101 mmol/L (98-107); CREATININE RESULT 0.66 mg/dL (0.52-1.25); GLUCOSE 132 mg/dL (75-110); MAGNESIUM 1.4 mg/dL (1.6-2.3); SODIUM 135.8 mmol/L (137-145); TOTAL PROTEIN 5.6 g/dL (6.3-8.2); TRIGLYCERIDES 103 mg/dL (<150)
[2017-03-04 04:36] LABS: PARTIAL THROMBOPLASTIN TIME 23.9 SEC (23.5-35.8); POTASSIUM 3.1 mmol/L (3.6-5.0); PROTHROMBIN TIME 12.4 SEC (11.4-15.4)
[2017-03-04 05:30] LABS: ARTERIAL BLOOD BASE EXCESS 4.9 mmol/L
[2017-03-04] MEDS: METRONIDAZOLE 500 MG/NS RTU 100 ML IV SCH ×3 (05:34→21:36)
--- NOTE | 2017-03-04 06:46 | RADIOLOGY REPORT (SQ) ---
EXAM DESCRIPTION: CHEST SINGLE VIEW COMPLETED DATE/TIME: 03/04/2017 6:29 am REASON FOR STUDY: pna/resp failure COMPARISON: 03/03/2017. EXAM PARAMETERS: NUMBER OF VIEWS: One view. TECHNIQUE: Single frontal radiographic view of the chest acquired. RADIATION DOSE: NA LIMITATIONS: None. FINDINGS: LUNGS AND PLEURA: Moderate layering effusion -opacity of bilateral lower hemithoraces. Mo derate hyperinflation. Mild interstitial markings. MEDIASTINUM AND HILAR STRUCTURES: No masses. Contour normal. HEART AND VASCULAR STRUCTURES: Mild large with the cardiac silhouette. BONES: No acute findings. HARDWARE: Adequate appearing endotracheal tube. Tip of the nasogastric tube courses inferiorly off t he image over the left upper abdominal quadrant. OTHER: No other significant finding. IMPRESSION: No significant interval change. TECHNICAL DOCUMENTATION: JOB ID: [id number]
[2017-03-04 07:30] LABS: ABSOLUTE EOSINOPHILS # (AUTO) 0.1 10^3/uL (0.0-0.6); ABSOLUTE LYMPHOCYTES (AUTO) 0.9 10^3/uL (0.5-4.7); ABSOLUTE MONOCYTES (AUTO) 0.5 10^3/uL (0.1-1.4); ABSOLUTE NEUT (AUTO) 5.8 10^3/uL (1.7-8.2); BASOPHILS % (AUTO) 0.4 % (0-2); EOSINOPHILS % (AUTO) 1.8 % (0-6); HEMATOCRIT 32.6 % (36.0-47.0); HEMOGLOBIN 10.9 g/dL (12.0-15.5); HGB HCT DIFFERENCE 0.1; MEAN CORPUSCULAR HEMOGLOBIN 28.6 pg (27.0-33.4); MEAN CORPUSCULAR HGB CONC 33.3 g/dL (32.0-36.0); MEAN CORPUSCULAR VOLUME 86 fl (80-97); MONOCYTES % (AUTO) 7.3 % (3-13); RED CELL DISTRIBUTION WIDTH 17.3 % (11.5-14.0); SEGMENTED NEUTROPHILS % (AUTO) 78.5 % (42-78); WHITE BLOOD COUNT 7.4 10^3/uL (4.0-10.5)
[2017-03-04] MEDS ORDERED: MAGNESIUM SULFATE/D5W 100 ML IV ONE (08:29)
--- NOTE | 2017-03-04 08:39 | PDOC PROGRESS REPORT ---
Subjective Progress Note for:: 03/04/17 Subjective:: Patient remains on the ventilator. On intravenous sedation. No respiratory distress or temperature spikes reported. On nasogastric tube. Postoperative day 3-4. Hypotension resolved. Has about 2 L of negative balance. Physical Exam Vital Signs: Temp Pulse Resp BP Pulse Ox 98.1 F 89 24 H 139/76 H 97 03/04/17 08:00 03/04/17 08:00 03/04/17 08:00 03/04/17 08:00 03/04/17 08:00 Intake & Output 03/03/17 03/04/17 03/05/17 06:59 06:59 06:59 Intake Total 3413 3517 Output Total 3450 0058 225 Balance 1033 -2108 -225 Weight 50.5 kg 49.1 kg General appearance: PRESENT: no acute distress, other - Intubated and sedated Head exam: PRESENT: normocephalic Eye exam: PRESENT: conjunctiva pale Mouth exam: PRESENT: moist, neck supple Neck exam: ABSENT: JVD Respiratory exam: PRESENT: rhonchi - Few bilateral Cardiovascular exam: PRESENT: RRR. ABSENT: gallop GI/Abdominal exam: PRESENT: hypoactive bowel sounds, soft. ABSENT: distended Extremities exam: ABSENT: pedal edema Psychiatric exam: ABSENT: agitated Focused psych exam: ABSENT: restlessness Skin exam: PRESENT: dry, warm. ABSENT: cyanosis Results Laboratory Results: 03/04/17 07:20 03/04/17 03:39 03/03/17 03/04/17 03/04/17 19:17 03:39 03:39 WBC 8.6 Cancelled RBC 3.84 Cancelled Hgb 11.0 L D Cancelled Hct 33.8 L Cancelled MCV 88 Cancelled MCH 28.7 Cancelled MCHC 32.7 Cancelled RDW 17.7 H Cancelled Plt Count 300 Cancelled Seg Neutrophils % Cancelled Lymphocytes % Cancelled Monocytes % Cancelled Eosinophils % Cancelled Basophils % Cancelled Absolute Neutrophils Cancelled Absolute Lymphocytes Cancelled Absolute Monocytes Cancelled Absolute Eosinophils Cancelled Absolute Basophils Cancelled Carbonic Acid HCO3/H2CO3 Ratio ABG pH ABG pCO2 ABG pO2 ABG HCO3 ABG O2 Saturation ABG Base Excess FiO2 Sodium 135.8 L Potassium 3.1 L Chloride 101 Carbon Dioxide 25 Anion Gap 10 BUN 3 L Creatinine 0.66 Est GFR ( Amer) > 60 Est GFR (Non-Af Amer) > 60 Glucose 132 H Calcium 7.9 L Magnesium 1.4 L Total Bilirubin 0.6 AST 28 ALT 27 Alkaline Phosphatase 106 Total Protein 5.6 L Albumin 2.6 L Triglycerides 103 03/04/17 03/04/17 03/04/17 05:25 06:33 07:20 WBC Cancelled 7.4 RBC Cancelled 3.80 Hgb Cancelled 10.9 L Hct Cancelled 32.6 L MCV Cancelled 86 MCH Cancelled 28.6 MCHC Cancelled 33.3 RDW Cancelled 17.3 H Plt Count Cancelled 310 Seg Neutrophils % Cancelled 78.5 H Lymphocytes % Cancelled 12.0 L Monocytes % Cancelled 7.3 Eosinophils % Cancelled 1.8 Basophils % Cancelled 0.4 Absolute Neutrophils Cancelled 5.8 Absolute Lymphocytes Cancelled 0.9 Absolute Monocytes Cancelled 0.5 Absolute Eosinophils Cancelled 0.1 Absolute Basophils Cancelled 0.0 Carbonic Acid 1.15 HCO3/H2CO3 Ratio 24:1 ABG pH 7.49 H ABG pCO2 38.2 ABG pO2 68.5 L ABG HCO3 28.5 H ABG O2 Saturation 95.0 ABG Base Excess 4.9 FiO2 25% Sodium Potassium Chloride Carbon Dioxide Anion Gap BUN Creatinine Est GFR ( Amer) Est GFR (Non-Af Amer) Glucose Calcium Magnesium Total Bilirubin AST ALT Alkaline Phosphatase Total Protein Albumin Triglycerides Impressions: Abdomen/Pelvis CT 02/28/17 23:39 IMPRESSION: Moderate free fluid and free gas predominately below the right hemidiaphragm suggest bowel rupture of unclear source. Urgent general surgery consultation advised. Chest X-Ray 03/04/17 06:00 IMPRESSION: No significant interval change. Assessment & Plan - Diagnosis (1) Respiratory failure requiring intubation Is this a current diagnosis for this admission?: Yes (2) Hypotension Qualifiers: Hypotension type: other hypotension type Qualified Code(s): I95.89 - Other hypotension Is this a current diagnosis for this admission?: Yes (3) Bowel perforation Is this a current diagnosis for this admission?: Yes (4) Anemia Qualifiers: Anemia type: other cause Other causes of anemia: acute posthemorrhagic Qualified Code(s): D62 - Acute posthemorrhagic anemia Is this a current diagnosis for this admission?: Yes (5) Hypokalemia Is this a current diagnosis for this admission?: Yes (6) Hypomagnesemia Is this a current diagnosis for this admission?: Yes (7) Pleural effusion Is this a current diagnosis for this admission?: Yes (8) Essential hypertension Is this a current diagnosis for this admission?: Yes (9) COPD (chronic obstructive pulmonary disease) Qualifiers: COPD type: unspecified COPD Qualified Code(s): J44.9 - Chronic obstructive pulmonary disease, unspecified Is this a current diagnosis for this admission?: Yes - Time Time Spent with patient: 25-34 minutes - Plan Summary Plan Summary: Replace magnesium, replace potassium. Recheck electrolytes in the morning. We will continue to hold antihypertensive medications. Ventilator management and weaning per pulmonary service. Continue supportive care. We will continue to follow.
[2017-03-04] MEDS: POTASSI CL 20 MEQ/50 ML RIDER 50 ML IV SCH ×2 (09:13→13:37)
[2017-03-04] MEDS ORDERED: FAMOTIDINE INJ/PF 20 MG/2 ML SDV IV SCH (10:00)
--- NOTE | 2017-03-04 12:08 | PDOC PROGRESS REPORT ---
Subjective Progress Note for:: 03/04/17 Subjective:: intubated sedated Sustain pressure support CPAP for only 4 hours yesterday Physical Exam Vital Signs: Temp Pulse Resp BP Pulse Ox 98.1 F 89 24 H 139/76 H 97 03/04/17 08:00 03/04/17 08:00 03/04/17 08:00 03/04/17 08:00 03/04/17 08:00 Intake & Output 03/03/17 03/04/17 03/05/17 06:59 06:59 06:59 Intake Total 3413 3517 Output Total 2380 5625 225 Balance 1033 -2108 -225 Weight 50.5 kg 49.1 kg General appearance: PRESENT: no acute distress, disheveled, thin, well-developed Head exam: PRESENT: atraumatic, normocephalic Eye exam: PRESENT: conjunctiva pale Mouth exam: PRESENT: dry mucosa, neck supple, tongue midline, other - ET tube in place Teeth exam: PRESENT: poor dentation Neck exam: ABSENT: carotid bruit, JVD, lymphadenopathy, thyromegaly Respiratory exam: PRESENT: decreased breath sounds - Bibasilar, prolonged expiratory phas, rhonchi - Scattered coarse, unlabored Cardiovascular exam: PRESENT: RRR, +S1, +S2 Pulses: PRESENT: normal radial pulses GI/Abdominal exam: PRESENT: diminished bowel sounds, rebound, other - Status post surgery. ABSENT: tenderness Rectal exam: PRESENT: deferred Gentrourinary exam: PRESENT: indwelling catheter Musculoskeletal exam: PRESENT: normal inspection Skin exam: PRESENT: dry, warm Results Laboratory Results: 03/04/17 07:20 03/04/17 03:39 03/03/17 03/04/17 03/04/17 19:17 03:39 03:39 WBC 8.6 Cancelled RBC 3.84 Cancelled Hgb 11.0 L D Cancelled Hct 33.8 L Cancelled MCV 88 Cancelled MCH 28.7 Cancelled MCHC 32.7 Cancelled RDW 17.7 H Cancelled Plt Count 300 Cancelled Seg Neutrophils % Cancelled Lymphocytes % Cancelled Monocytes % Cancelled Eosinophils % Cancelled Basophils % Cancelled Absolute Neutrophils Cancelled Absolute Lymphocytes Cancelled Absolute Monocytes Cancelled Absolute Eosinophils Cancelled Absolute Basophils Cancelled Carbonic Acid HCO3/H2CO3 Ratio ABG pH ABG pCO2 ABG pO2 ABG HCO3 ABG O2 Saturation ABG Base Excess FiO2 Sodium 135.8 L Potassium 3.1 L Chloride 101 Carbon Dioxide 25 Anion Gap 10 BUN 3 L Creatinine 0.66 Est GFR ( Amer) > 60 Est GFR (Non-Af Amer) > 60 Glucose 132 H Calcium 7.9 L Magnesium 1.4 L Total Bilirubin 0.6 AST 28 ALT 27 Alkaline Phosphatase 106 Total Protein 5.6 L Albumin 2.6 L Triglycerides 103 03/04/17 03/04/17 03/04/17 05:25 06:33 07:20 WBC Cancelled 7.4 RBC Cancelled 3.80 Hgb Cancelled 10.9 L Hct Cancelled 32.6 L MCV Cancelled 86 MCH Cancelled 28.6 MCHC Cancelled 33.3 RDW Cancelled 17.3 H Plt Count Cancelled 310 Seg Neutrophils % Cancelled 78.5 H Lymphocytes % Cancelled 12.0 L Monocytes % Cancelled 7.3 Eosinophils % Cancelled 1.8 Basophils % Cancelled 0.4 Absolute Neutrophils Cancelled 5.8 Absolute Lymphocytes Cancelled 0.9 Absolute Monocytes Cancelled 0.5 Absolute Eosinophils Cancelled 0.1 Absolute Basophils Cancelled 0.0 Carbonic Acid 1.15 HCO3/H2CO3 Ratio 24:1 ABG pH 7.49 H ABG pCO2 38.2 ABG pO2 68.5 L ABG HCO3 28.5 H ABG O2 Saturation 95.0 ABG Base Excess 4.9 FiO2 25% Sodium Potassium Chloride Carbon Dioxide Anion Gap BUN Creatinine Est GFR ( Amer) Est GFR (Non-Af Amer) Glucose Calcium Magnesium Total Bilirubin AST ALT Alkaline Phosphatase Total Protein Albumin Triglycerides Impressions: Abdomen/Pelvis CT 02/28/17 23:39 IMPRESSION: Moderate free fluid and free gas predominately below the right hemidiaphragm suggest bowel rupture of unclear source. Urgent general surgery consultation advised. Chest X-Ray 03/04/17 06:00 IMPRESSION: No significant interval change. Assessment & Plan - Diagnosis (1) Respiratory failure requiring intubation Is this a current diagnosis for this admission?: YesPlan: min vol;resp rate; FIO2 acceptable mental status ?? very agitated when sedation decreased Only able to sustain pressure support and CPAP for 4 hours (2) Asthma Qualifiers: Asthma severity: unspecified severity Asthma complication type: uncomplicated Qualified Code(s): J45.909 - Unspecified asthma, uncomplicated Is this a current diagnosis for this admission?: Yes (3) COPD (chronic obstructive pulmonary disease) Qualifiers: COPD type: unspecified COPD Qualified Code(s): J44.9 - Chronic obstructive pulmonary disease, unspecified Is this a current diagnosis for this admission?: Yes (4) Bowel perforation Is this a current diagnosis for this admission?: YesPlan: as per surgery the pcp (5) Addiction to drug Is this a current diagnosis for this admission?: Yes (6) Personal history of nutritional deficiency Is this a current diagnosis for this admission?: YesPlan: Enteral feedings as per surgery - Time Critical Time spent with patient: 35 or more minutes
--- NOTE | 2017-03-04 13:23 | RADIOLOGY REPORT (SQ) ---
EXAM DESCRIPTION: CHEST SINGLE VIEW COMPLETED DATE/TIME: 03/04/2017 1:09 pm REASON FOR STUDY: CENTRAL LINE PLACEMENT COMPARISON: 03/04/2017 at 0558 hours. EXAM PARAMETERS: NUMBER OF VIEWS: One view. TECHNIQUE: Single frontal radiographic view of the chest acquired. RADIATION DOSE: NA LIMITATIONS: Rotated. FINDINGS: LUNGS AND PLEURA: Basilar densities and pleural effusions unchanged. 10% left pneumothora x. MEDIASTINUM AND HILAR STRUCTURES: No masses. Contour normal. HEART AND VASCULAR STRUCTURES: Heart normal in size. Normal vasculature. BONES: No acute findings. HARDWARE: Central line on the left side with the tip at the level of the superior vena cava. Stable endotracheal tube and nasogastric tube. OTHER: No other significant finding. IMPRESSION: INTERVAL PLACEMENT OF A LEFT-SIDED CENTRAL VENOUS CATHETER. 10% LEFT PNEUMOTHORAX. COMMENT: Pertinent findings on the imaging study reported as a CRITICAL RESULT to LAURA - ICU NURSE at13:17 on 03/04/2017. Category of Critical Result: Pneumothorax. TECHNICAL DOCUMENTATION: JOB ID: [id number]
[2017-03-04] MEDS: CIPROFLOXACIN 400 MG/D5W RTU 400 MG/200 ML RTUPB IV SCH ×2 (13:30→21:37)
[2017-03-04] MEDS: FUROSEMIDE INJ/PF 20 MG/2 ML SDV IV SCH ×2 (13:31→21:37)
[2017-03-04] MEDS: HEPARIN SOD (PORCINE) 5,000 UNIT/ML 1 ML SYRINGE SUBCUT SCH ×2 (13:32→21:35)
[2017-03-04] MEDS: MORPHINE SULFATE 10 MG/ML INJ IV PRN ×3 (13:38→23:12)
[2017-03-04] MEDS ORDERED: DEXTROSE 40% GEL 15 GM TUBE PO PRN (14:12)
[2017-03-04] MEDS ORDERED: GLUCAGON,HUMAN RECOMB 1 MG INJ IM PRN (14:12)
[2017-03-04] MEDS ORDERED: DEXTROSE 50%-WATER SYRINGE 25 GM/50 ML DOSE IV PRN (14:12)
[2017-03-04] MEDS ORDERED: DEXTROSE 40% GEL 15 GM TUBE X 2 PO PRN (14:12)
[2017-03-04] MEDS ORDERED: DEXTROSE 50%-WATER SYRINGE 12.5 GM/25 ML DOSE IV PRN (14:12)
[2017-03-04] MEDS ORDERED: DEXTROSE 10%-WATER 1,000 ML IV PRN (14:12)
--- NOTE | 2017-03-04 15:09 | OPERATIVE REPORT E ---
Operative Report NAME: RICKEY REID : [id number] AGE: 66Y DATE OF SURGERY: 03/04/2017 ROOM: 601 PREOPERATIVE DIAGNOSIS: Poor veins for IV access and needed a central line also for TPN. POSTOPERATIVE DIAGNOSIS: Poor veins for IV access and needed a central line also for TPN. OPERATION: Insertion of left subclavian catheter. SURGEON: ANDREIA SALAZAR M.D. DESCRIPTION OF PROCEDURE: The patient was placed in slight Trendelenburg position. The left upper chest and neck were then prepped and draped in the usual sterile fashion. The patient was given extra medication of propofol. The left infraclavicular area was then punctured and anesthetized with 1% Xylocaine. Next the left subclavian vein was then punctured and the guidewire passed through the needle into the superior vena cava and needle removed. The entry site on the skin was enlarged with an 11 blade and also further with a dilator. Next a triple-lumen catheter was then inserted through the guidewire into the area of the superior vena cava and placed about 6 cm long towards the inferior vena cava. The catheter was then anchored to the skin with 3-0 silk and tied towards the catheter. A Biopatch placed at the insertion site and then transparent dressing placed over the catheter and Biopatch. The 3 ports were then aspirated with blood easily and instilled fluid also easily. A sterile dressing was placed over the catheter. The patient tolerated the procedure well. A chest x-ray will be obtained to make sure there is no pneumothorax and also to check for placement. DICTATING PHYSICIAN: ANDREIA SALAZAR M.D. [id number] PHY#: [id number] ID: [id number] JOB#: [id number] ACCT: [id number] cc:ANDREIA SALAZAR M.D. >
[2017-03-04] MEDS ORDERED: POTASSIUM CHLORIDE 20 MEQ/50 ML RTU IV ONE (15:15)
[2017-03-04] MEDS: AMINO ACIDS 5%/D25W 1,000 ML IV PRN (17:31)
--- NOTE | 2017-03-04 20:24 | RADIOLOGY REPORT (SQ) ---
EXAM DESCRIPTION: CHEST SINGLE VIEW COMPLETED DATE/TIME: 03/04/2017 8:11 pm REASON FOR STUDY: PNEUMOTHORAX COMPARISON: 03/04/2017 EXAM PARAMETERS: NUMBER OF VIEWS: One view. TECHNIQUE: Single frontal radiographic view of the chest acquired. RADIATION DOSE: NA LIMITATIONS: None. FINDINGS: LUNGS AND PLEURA: The previously described pneumothorax on the left shows interval increas e in size with apical and basilar components. The right lung remains clear. MEDIASTINUM AND HILAR STRUCTURES: No masses. Contour normal. HEART AND VASCULAR STRUCTURES: Heart normal in size. Normal vasculature. BONES: No acute findings. HARDWARE: Endotracheal tube is seen with its tip at the level of the aortic arch just above the level of the aranza. Central line is seen with its tip at the level of the superior vena cava. NG tube i s seen in course to the abdomen. OTHER: No other significant finding. IMPRESSION: Interval increase in size of the pneumothorax on the left as noted above. Other finding s as noted above. TECHNICAL DOCUMENTATION: JOB ID: [id number]
[2017-03-05] MEDS: PROPOFOL 100 ML IV PRN ×5 (00:43→20:01)
[2017-03-05] MEDS: MIDAZOLAM HCL 100 ML IV PRN ×4 (04:43→20:11)
[2017-03-05] MEDS: MORPHINE SULFATE 10 MG/ML INJ IV PRN ×5 (04:43→20:00)
[2017-03-05] MEDS: DEXTROSE 5%-NORMAL SALINE 1,000 ML IV PRN ×2 (04:44→20:01)
[2017-03-05 05:28] LABS: ARTERIAL BLOOD BASE EXCESS 6.7 mmol/L; ARTERIAL BLOOD O2 SATURATION 94.6 % (94-98); HEMATOCRIT 31.5 % (36.0-47.0); HEMOGLOBIN 10.3 g/dL (12.0-15.5); HGB HCT DIFFERENCE -0.6; MEAN CORPUSCULAR HEMOGLOBIN 28.4 pg (27.0-33.4); MEAN CORPUSCULAR HGB CONC 32.8 g/dL (32.0-36.0); MEAN CORPUSCULAR VOLUME 87 fl (80-97); RED BLOOD COUNT 3.63 10^6/uL (3.72-5.28); WHITE BLOOD COUNT 9.7 10^3/uL (4.0-10.5)
[2017-03-05] MEDS: METRONIDAZOLE 500 MG/NS RTU 100 ML IV SCH ×3 (05:28→22:00)
[2017-03-05 05:45] LABS: ALANINE AMINOTRANSFERASE 22 U/L (9-52); ALBUMIN 2.3 g/dL (3.5-5.0); ALKALINE PHOSPHATASE 89 U/L (38-126); ANION GAP 6 (5-19); ASPARTATE AMINO TRANSFERASE 23 U/L (14-36); BILIRUBIN,DIRECT 0.4 mg/dL (0.0-0.4); BILIRUBIN,TOTAL 0.6 mg/dL (0.2-1.3); BLOOD UREA NITROGEN 9 mg/dL (7-20); CALCIUM 7.5 mg/dL (8.4-10.2); CARBON DIOXIDE 28 mmol/L (22-30); CHLORIDE 99 mmol/L (98-107); GLUCOSE 175 mg/dL (75-110); MAGNESIUM 1.4 mg/dL (1.6-2.3); PHOSPHORUS 3.3 mg/dL (2.5-4.5); POTASSIUM 3.2 mmol/L (3.6-5.0); SODIUM 133.3 mmol/L (137-145); TOTAL PROTEIN 4.7 g/dL (6.3-8.2)
[2017-03-05 05:51] LABS: PREALBUMIN 13.3 mg/dL (17.6-36.0)
[2017-03-05] MEDS: INSULIN REG, HUMAN 100 UNIT/ML 3 ML VIAL (PYX) SUBCUT PRN ×2 (06:38→12:20)
--- NOTE | 2017-03-05 07:09 | RADIOLOGY REPORT (SQ) ---
EXAM DESCRIPTION: CHEST SINGLE VIEW COMPLETED DATE/TIME: 03/05/2017 6:43 am REASON FOR STUDY: pna/effusion COMPARISON: Chest x-ray 03/04/2017. EXAM PARAMETERS: NUMBER OF VIEWS: One view TECHNIQUE: Single frontal radiograph of the chest. RADIATION DOSE: N/A LIMITATIONS: None. FINDINGS: TEMPORARY SUPPORT DEVICES:The endotracheal tube has the tip approximately 1 cm above the c ronna. NG tube courses below the left ayanna-diaphragm in to the stomach. Left-sided central line has the tip overlying the region of the SVC. LUNGS AND PLEURA: Interval increase in the basilar component of the left-sided pneumothorax. There i s left basilar airspace opacity. Hyperlucent lungs, suggestive of emphysema. Subsegmental atelectas is at the right lung base. MEDIASTINUM AND HILAR STRUCTURES: No masses. Contour normal. HEART AND VASCULAR STRUCTURES: Heart size normal. No overt vascular congestion. BONES: No acute findings. IMPRESSION: Interval increase in the basilar component of the left-sided pneumothorax. Left-sided b asilar airspace opacity, may represent atelectasis or pneumonia. Subsegmental atelectasis at the rig ht lung base. Emphysema. Low lying endotracheal tube, retraction by approximately 2 cm recommended. RECOMMENDATIONS: Retraction of the endotracheal tube. TECHNICAL DOCUMENTATION: JOB ID: [id number] [employer]- All Rights Reserved
[2017-03-05] MEDS ORDERED: POTASSI CL 20 MEQ/50 ML RIDER 20 MEQ/50 ML RTUPB IV ONE (08:37)
[2017-03-05] MEDS: IPRATROPIUM/ALBUTEROL 0.5-2.5 MG/3 ML AMPUL NEB PRN (08:39)
[2017-03-05] MEDS: POTASSIUM CHLORIDE 20 MEQ/50 ML RTU IV SCH ×2 (08:43→10:55)
[2017-03-05] MEDS: MAGNESIUM SULFATE 1 GM/D5W 100 ML IV SCH ×2 (09:02→10:05)
[2017-03-05] MEDS: FUROSEMIDE INJ/PF 20 MG/2 ML SDV IV SCH ×2 (09:05→22:00)
--- NOTE | 2017-03-05 09:54 | PDOC PROGRESS REPORT ---
Subjective Progress Note for:: 03/05/17 Subjective:: Patient remains on the ventilator. On intravenous sedation. No respiratory distress or temperature spikes reported. On nasogastric tube. Postoperative day 4-5. Hypotension resolved but is tachycardic, has pneumothorax after insertion of central line. Still with negative balance urine output. Physical Exam Vital Signs: Temp Pulse Resp BP Pulse Ox 98.7 F 106 H 23 H 149/82 H 99 03/05/17 07:50 03/05/17 07:50 03/05/17 07:50 03/05/17 07:50 03/05/17 07:50 Intake & Output 03/04/17 03/05/17 03/06/17 06:59 06:59 06:59 Intake Total 3517 3601 Output Total 5619 4050 175 Balance -2108 -449 -175 Weight 49.1 kg 48.7 kg General appearance: PRESENT: no acute distress, other - Intubated and sedated Head exam: PRESENT: normocephalic Eye exam: PRESENT: conjunctiva pale Mouth exam: PRESENT: moist, neck supple Neck exam: ABSENT: JVD Respiratory exam: PRESENT: clear to auscultation ragini - Anteriorly Cardiovascular exam: PRESENT: RRR. ABSENT: gallop GI/Abdominal exam: PRESENT: diminished bowel sounds. ABSENT: distended Extremities exam: ABSENT: pedal edema Neurological exam: PRESENT: altered - Sedated Psychiatric exam: ABSENT: agitated Focused psych exam: ABSENT: restlessness Skin exam: PRESENT: dry, warm. ABSENT: cyanosis Results Laboratory Results: 03/05/17 05:05 03/05/17 05:05 03/05/17 03/05/17 03/05/17 05:05 05:05 05:05 WBC 9.7 RBC 3.63 L Hgb 10.3 L Hct 31.5 L MCV 87 MCH 28.4 MCHC 32.8 RDW 18.0 H Plt Count 311 Carbonic Acid 1.27 HCO3/H2CO3 Ratio 24:1 ABG pH 7.48 H ABG pCO2 42.3 ABG pO2 67.5 L ABG HCO3 30.9 H ABG O2 Saturation 94.6 ABG Base Excess 6.7 FiO2 25% Sodium 133.3 L Potassium 3.2 L Chloride 99 Carbon Dioxide 28 Anion Gap 6 BUN 9 Creatinine 0.60 Est GFR ( Amer) > 60 Est GFR (Non-Af Amer) > 60 Glucose 175 H Calcium 7.5 L Phosphorus 3.3 Magnesium 1.4 L Total Bilirubin 0.6 AST 23 ALT 22 Alkaline Phosphatase 89 Total Protein 4.7 L Albumin 2.3 L Prealbumin 13.3 L Impressions: Abdomen/Pelvis CT 02/28/17 23:39 IMPRESSION: Moderate free fluid and free gas predominately below the right hemidiaphragm suggest bowel rupture of unclear source. Urgent general surgery consultation advised. Chest X-Ray 03/05/17 06:00 IMPRESSION: Interval increase in the basilar component of the left-sided pneumothorax. Left-sided basilar airspace opacity, may represent atelectasis or pneumonia. Subsegmental atelectasis at the right lung base. Emphysema. Low lying endotracheal tube, retraction by approximately 2 cm recommended. Assessment & Plan - Diagnosis (1) Respiratory failure requiring intubation Is this a current diagnosis for this admission?: Yes (2) Pneumothorax Qualifiers: Pneumothorax type: unspecified pneumothorax Qualified Code(s): J93.9 - Pneumothorax, unspecified Is this a current diagnosis for this admission?: Yes (3) Hypotension Qualifiers: Hypotension type: other hypotension type Qualified Code(s): I95.89 - Other hypotension Is this a current diagnosis for this admission?: Yes (4) Bowel perforation Is this a current diagnosis for this admission?: Yes (5) Anemia Qualifiers: Anemia type: other cause Other causes of anemia: acute posthemorrhagic Qualified Code(s): D62 - Acute posthemorrhagic anemia Is this a current diagnosis for this admission?: Yes (6) Hypokalemia Is this a current diagnosis for this admission?: Yes (7) Hypomagnesemia Is this a current diagnosis for this admission?: Yes (8) Pleural effusion Is this a current diagnosis for this admission?: Yes (9) Essential hypertension Is this a current diagnosis for this admission?: Yes (10) COPD (chronic obstructive pulmonary disease) Qualifiers: COPD type: unspecified COPD Qualified Code(s): J44.9 - Chronic obstructive pulmonary disease, unspecified Is this a current diagnosis for this admission?: Yes - Time Time Spent with patient: 25-34 minutes - Plan Summary Plan Summary: TPN for nutrition. Replace potassium and magnesium. Follow-up chest x-ray to monitor pneumothorax. Ventilator weaning per respiratory. Recheck electrolytes in the morning. Continue supportive care.
[2017-03-05] MEDS: CIPROFLOXACIN 400 MG/D5W RTU 400 MG/200 ML RTUPB IV SCH ×2 (10:56→21:58)
--- NOTE | 2017-03-05 11:14 | RADIOLOGY REPORT (SQ) ---
EXAM DESCRIPTION: CHEST SINGLE VIEW COMPLETED DATE/TIME: 03/05/2017 10:59 am REASON FOR STUDY: pneumothorax left COMPARISON: 03/05/2017 EXAM PARAMETERS: NUMBER OF VIEWS: One view. TECHNIQUE: Single frontal radiographic view of the chest acquired. RADIATION DOSE: NA LIMITATIONS: None. FINDINGS: LUNGS AND PLEURA: Previously noted subpulmonic pneumothorax appears to have decreased in c omparison the prior study. There is persistent opacity seen in the left lung base, similar to prior study. The right lung remains clear. Lungs are hyperlucent and hyperinflated likely representing un derlying COPD. MEDIASTINUM AND HILAR STRUCTURES: No masses. Contour normal. HEART AND VASCULAR STRUCTURES: Heart normal in size. Normal vasculature. BONES: No acute findings. HARDWARE: The endotracheal nasogastric tubes are unchanged in position. Left subclavian central line is unchanged. EKG leads overlie the chest OTHER: No other significant finding. IMPRESSION: The left basilar pneumothorax appears to have decreased in size in comparison to the lauren or study. There is persistent opacities noted in the left lung base likely representing scarring. Yvonne vogt COPD TECHNICAL DOCUMENTATION: JOB ID: [id number]
[2017-03-05] MEDS: HEPARIN SOD (PORCINE) 5,000 UNIT/ML 1 ML SYRINGE SUBCUT SCH ×2 (11:40→22:01)
[2017-03-05] MEDS ORDERED: CLONIDINE 0.1 MG/24 HR PATCH.TDWK TD SCH (12:00)
[2017-03-05] MEDS ORDERED: METOPROLOL TARTRATE PF/INJ 5 MG/5 ML SDV IV ONE ×2 (12:02→15:49)
[2017-03-05] MEDS ORDERED: METOPROLOL TARTRATE PF/INJ 5 MG/5 ML SDV IV PRN (15:40)
[2017-03-05] MEDS: AMINO ACIDS 5%/D25W 1,000 ML IV PRN (17:24)
[2017-03-06] MEDS: MORPHINE SULFATE 10 MG/ML INJ IV PRN ×2 (02:21→21:52)
[2017-03-06] MEDS: MIDAZOLAM HCL 100 ML IV PRN ×2 (02:21→17:15)
[2017-03-06] MEDS: PROPOFOL 100 ML IV PRN ×3 (04:01→20:09)
[2017-03-06 05:17] LABS: ARTERIAL BLOOD BASE EXCESS 6.4 mmol/L; ARTERIAL BLOOD O2 SATURATION 94.3 % (94-98)
[2017-03-06 05:34] LABS: ALANINE AMINOTRANSFERASE 23 U/L (9-52); ALBUMIN 2.2 g/dL (3.5-5.0); ALKALINE PHOSPHATASE 87 U/L (38-126); ANION GAP 6 (5-19); ASPARTATE AMINO TRANSFERASE 24 U/L (14-36); BILIRUBIN,DIRECT 0.4 mg/dL (0.0-0.4); BILIRUBIN,TOTAL 0.4 mg/dL (0.2-1.3); BLOOD UREA NITROGEN 12 mg/dL (7-20); CALCIUM 7.7 mg/dL (8.4-10.2); CARBON DIOXIDE 29 mmol/L (22-30); CHLORIDE 96 mmol/L (98-107); CREATININE RESULT 0.64 mg/dL (0.52-1.25); GLUCOSE 171 mg/dL (75-110); PHOSPHORUS 3.2 mg/dL (2.5-4.5); POTASSIUM 3.5 mmol/L (3.6-5.0); SODIUM 131.3 mmol/L (137-145); TOTAL PROTEIN 4.5 g/dL (6.3-8.2)
[2017-03-06] MEDS: METRONIDAZOLE 500 MG/NS RTU 100 ML IV SCH ×3 (06:04→21:34)
[2017-03-06] MEDS: CIPROFLOXACIN 400 MG/D5W RTU 400 MG/200 ML RTUPB IV SCH ×2 (09:42→21:41)
--- NOTE | 2017-03-06 09:48 | PDOC PROGRESS REPORT ---
Subjective Progress Note for:: 03/06/17 Subjective:: Patient remains on the ventilator. Difficult to wean per pulmonary service. On intravenous sedation. No respiratory distress or temperature spikes reported. On trial of pressure support and CPAP the patient will develop respiratory distress eventually. On nasogastric tube. Postoperative day 4-5. Hypotension resolved. Has pneumothorax after insertion of central line but improving. Urine output positive balance today by about 500 mL. Physical Exam Vital Signs: Temp Pulse Resp BP Pulse Ox 99.6 F 98 29 H 108/51 L 92 03/06/17 09:21 03/06/17 09:21 03/06/17 09:21 03/06/17 09:21 03/06/17 09:21 Intake & Output 03/05/17 03/06/17 03/07/17 06:59 06:59 06:59 Intake Total 3601 4336 Output Total 4050 3790 230 Balance -449 546 -230 Weight 48.7 kg 48.6 kg General appearance: PRESENT: no acute distress, other - Intubated and sedated Head exam: PRESENT: normocephalic Eye exam: PRESENT: conjunctiva pale Mouth exam: PRESENT: moist, neck supple Neck exam: ABSENT: JVD Respiratory exam: PRESENT: rhonchi - Minimal. ABSENT: wheezes Cardiovascular exam: PRESENT: RRR. ABSENT: gallop GI/Abdominal exam: PRESENT: hypoactive bowel sounds. ABSENT: distended Extremities exam: ABSENT: pedal edema Psychiatric exam: ABSENT: agitated Focused psych exam: ABSENT: restlessness Skin exam: PRESENT: dry, warm Results Laboratory Results: 03/05/17 05:05 03/06/17 05:05 03/06/17 03/06/17 03/06/17 05:05 05:05 05:05 Carbonic Acid 1.32 HCO3/H2CO3 Ratio 23:1 ABG pH 7.47 H ABG pCO2 43.9 ABG pO2 67.3 L ABG HCO3 30.9 H ABG O2 Saturation 94.3 ABG Base Excess 6.4 FiO2 25% Sodium 131.3 L Potassium 3.5 L Chloride 96 L Carbon Dioxide 29 Anion Gap 6 BUN 12 Creatinine 0.64 Est GFR ( Amer) > 60 Est GFR (Non-Af Amer) > 60 Glucose 171 H Calcium 7.7 L Phosphorus 3.2 Magnesium 1.8 Total Bilirubin 0.4 AST 24 ALT 23 Alkaline Phosphatase 87 Total Protein 4.5 L Albumin 2.2 L Prealbumin 14.0 L Impressions: Abdomen/Pelvis CT 02/28/17 23:39 IMPRESSION: Moderate free fluid and free gas predominately below the right hemidiaphragm suggest bowel rupture of unclear source. Urgent general surgery consultation advised. Chest X-Ray 03/05/17 10:43 IMPRESSION: The left basilar pneumothorax appears to have decreased in size in comparison to the prior study. There is persistent opacities noted in the left lung base likely representing scarring. Probable COPD Assessment & Plan - Diagnosis (1) Respiratory failure requiring intubation Is this a current diagnosis for this admission?: Yes (2) Pneumothorax Qualifiers: Pneumothorax type: unspecified pneumothorax Qualified Code(s): J93.9 - Pneumothorax, unspecified Is this a current diagnosis for this admission?: Yes (3) Hypotension Qualifiers: Hypotension type: other hypotension type Qualified Code(s): I95.89 - Other hypotension Is this a current diagnosis for this admission?: Yes (4) Bowel perforation Is this a current diagnosis for this admission?: Yes (5) Anemia Qualifiers: Anemia type: other cause Other causes of anemia: acute posthemorrhagic Qualified Code(s): D62 - Acute posthemorrhagic anemia Is this a current diagnosis for this admission?: Yes (6) Hypokalemia Is this a current diagnosis for this admission?: Yes (7) Hypomagnesemia Is this a current diagnosis for this admission?: Yes (8) Pleural effusion Is this a current diagnosis for this admission?: Yes (9) Essential hypertension Is this a current diagnosis for this admission?: Yes (10) COPD (chronic obstructive pulmonary disease) Qualifiers: COPD type: unspecified COPD Qualified Code(s): J44.9 - Chronic obstructive pulmonary disease, unspecified Is this a current diagnosis for this admission?: Yes - Time Time Spent with patient: 25-34 minutes - Plan Summary Plan Summary: We will try to add Spiriva and Advair. Replace electrolytes and monitor. According to site planner, family prefers the patient to be transferred to a long-term acute care facility when able to. I have discussed this with surgical service, as well as pulmonary service and seems to be agreeable with the plan. Continue supportive care.
[2017-03-06] MEDS: MAGNESIUM SULFATE/D5W 1 GM/100 ML RTUPB IV SCH ×2 (10:03→10:42)
[2017-03-06] MEDS: POTASSI CL 20 MEQ/50 ML RIDER 20 MEQ/50 ML RTUPB IV SCH ×2 (10:04→11:18)
[2017-03-06] MEDS: HEPARIN SOD (PORCINE) 5,000 UNIT/ML 1 ML SYRINGE SUBCUT SCH ×2 (10:05→21:40)
[2017-03-06] MEDS: GABAPENTIN 300 MG CAPSULE PO SCH ×2 (10:07→17:15)
[2017-03-06] MEDS: TIOTROPIUM BROMIDE DPI 5 CAP/KIT (18 MCG/CAP) IH SCH (10:08)
[2017-03-06] MEDS: FLUTICASONE/SALMETEROL DISKUS 250-50 MCG/DOSE IH SCH ×2 (10:08→21:42)
[2017-03-06] MEDS: DEXTROSE 5%-NORMAL SALINE 1,000 ML IV PRN ×2 (10:09→22:42)
[2017-03-06] MEDS: INSULIN REG, HUMAN 100 UNIT/ML 3 ML VIAL (PYX) SUBCUT PRN (11:56)
--- NOTE | 2017-03-06 14:09 | PDOC PROGRESS REPORT ---
Subjective Progress Note for:: 03/05/17 Subjective:: intubated sedated Sustain pressure support CPAP for very limited time Physical Exam Vital Signs: Temp Pulse Resp BP Pulse Ox 98.7 F 106 H 23 H 149/82 H 99 03/05/17 07:50 03/05/17 07:50 03/05/17 07:50 03/05/17 07:50 03/05/17 07:50 Intake & Output 03/04/17 03/05/17 03/06/17 06:59 06:59 06:59 Intake Total 3517 3601 Output Total 5625 4050 175 Balance -2104 -449 -175 Weight 49.1 kg 48.7 kg General appearance: PRESENT: no acute distress, disheveled, thin, well-developed Head exam: PRESENT: atraumatic, normocephalic Eye exam: PRESENT: conjunctiva pale Mouth exam: PRESENT: dry mucosa, neck supple, other - ET tube in place Neck exam: ABSENT: carotid bruit, JVD, lymphadenopathy, thyromegaly Respiratory exam: PRESENT: decreased breath sounds, prolonged expiratory phas, rhonchi, unlabored Cardiovascular exam: PRESENT: RRR, +S1, +S2 Pulses: PRESENT: normal radial pulses GI/Abdominal exam: PRESENT: other - Status post surgery no bowel sounds appreciated no stool no flatus Rectal exam: PRESENT: deferred Gentrourinary exam: PRESENT: indwelling catheter Musculoskeletal exam: PRESENT: normal inspection Skin exam: PRESENT: dry, warm Results Laboratory Results: 03/05/17 05:05 03/05/17 05:05 03/05/17 03/05/17 03/05/17 05:05 05:05 05:05 WBC 9.7 RBC 3.63 L Hgb 10.3 L Hct 31.5 L MCV 87 MCH 28.4 MCHC 32.8 RDW 18.0 H Plt Count 311 Carbonic Acid 1.27 HCO3/H2CO3 Ratio 24:1 ABG pH 7.48 H ABG pCO2 42.3 ABG pO2 67.5 L ABG HCO3 30.9 H ABG O2 Saturation 94.6 ABG Base Excess 6.7 FiO2 25% Sodium 133.3 L Potassium 3.2 L Chloride 99 Carbon Dioxide 28 Anion Gap 6 BUN 9 Creatinine 0.60 Est GFR ( Amer) > 60 Est GFR (Non-Af Amer) > 60 Glucose 175 H Calcium 7.5 L Phosphorus 3.3 Magnesium 1.4 L Total Bilirubin 0.6 AST 23 ALT 22 Alkaline Phosphatase 89 Total Protein 4.7 L Albumin 2.3 L Prealbumin 13.3 L Impressions: Abdomen/Pelvis CT 02/28/17 23:39 IMPRESSION: Moderate free fluid and free gas predominately below the right hemidiaphragm suggest bowel rupture of unclear source. Urgent general surgery consultation advised. Chest X-Ray 03/05/17 06:00 IMPRESSION: Interval increase in the basilar component of the left-sided pneumothorax. Left-sided basilar airspace opacity, may represent atelectasis or pneumonia. Subsegmental atelectasis at the right lung base. Emphysema. Low lying endotracheal tube, retraction by approximately 2 cm recommended. Assessment & Plan - Diagnosis (1) Respiratory failure requiring intubation Is this a current diagnosis for this admission?: YesPlan: Primary issue weakness vs work of breathing (2) Asthma Qualifiers: Asthma severity: unspecified severity Asthma complication type: uncomplicated Qualified Code(s): J45.909 - Unspecified asthma, uncomplicated Is this a current diagnosis for this admission?: Yes (3) COPD (chronic obstructive pulmonary disease) Qualifiers: COPD type: unspecified COPD Qualified Code(s): J44.9 - Chronic obstructive pulmonary disease, unspecified Is this a current diagnosis for this admission?: Yes (4) Bowel perforation Is this a current diagnosis for this admission?: Yes (5) Addiction to drug Is this a current diagnosis for this admission?: Yes (6) Personal history of nutritional deficiency Is this a current diagnosis for this admission?: YesPlan: TPN (7) Pneumothorax Qualifiers: Pneumothorax type: unspecified pneumothorax Qualified Code(s): J93.9 - Pneumothorax, unspecified Is this a current diagnosis for this admission?: YesPlan: Stable not requiring chest tube at this time - Time Critical Time spent with patient: 35 or more minutes
--- NOTE | 2017-03-06 14:12 | PDOC PROGRESS REPORT ---
Subjective Progress Note for:: 03/06/17 Subjective:: intubated sedated Sustain pressure support CPAP for very limited time Physical Exam Vital Signs: Temp Pulse Resp BP Pulse Ox 99.5 F 120 H 19 116/76 98 03/06/17 04:00 03/06/17 01:25 03/06/17 06:00 03/06/17 05:54 03/06/17 06:00 Intake & Output 03/05/17 03/06/17 03/07/17 06:59 06:59 06:59 Intake Total 3601 4336 Output Total 4050 3790 Balance -449 546 Weight 48.7 kg 48.6 kg General appearance: PRESENT: no acute distress, disheveled, thin, well-developed Head exam: PRESENT: atraumatic, normocephalic Eye exam: PRESENT: conjunctiva pale Mouth exam: PRESENT: dry mucosa, neck supple, other - ET tube Neck exam: PRESENT: carotid bruit Respiratory exam: PRESENT: decreased breath sounds, prolonged expiratory phas, rhonchi, unlabored Cardiovascular exam: PRESENT: RRR, +S1, +S2 Pulses: PRESENT: normal radial pulses GI/Abdominal exam: PRESENT: normal bowel sounds, soft. ABSENT: distended, guarding, mass, organolmegaly, rebound, tenderness Rectal exam: PRESENT: deferred Gentrourinary exam: PRESENT: indwelling catheter Musculoskeletal exam: PRESENT: normal inspection Skin exam: PRESENT: dry, warm Results Laboratory Results: 03/05/17 05:05 03/06/17 05:05 03/06/17 03/06/17 05:05 05:05 Carbonic Acid 1.32 HCO3/H2CO3 Ratio 23:1 ABG pH 7.47 H ABG pCO2 43.9 ABG pO2 67.3 L ABG HCO3 30.9 H ABG O2 Saturation 94.3 ABG Base Excess 6.4 FiO2 25% Sodium 131.3 L Potassium 3.5 L Chloride 96 L Carbon Dioxide 29 Anion Gap 6 BUN 12 Creatinine 0.64 Est GFR ( Amer) > 60 Est GFR (Non-Af Amer) > 60 Glucose 171 H Calcium 7.7 L Phosphorus 3.2 Total Bilirubin 0.4 AST 24 ALT 23 Alkaline Phosphatase 87 Total Protein 4.5 L Albumin 2.2 L Prealbumin 14.0 L Impressions: Abdomen/Pelvis CT 02/28/17 23:39 IMPRESSION: Moderate free fluid and free gas predominately below the right hemidiaphragm suggest bowel rupture of unclear source. Urgent general surgery consultation advised. Chest X-Ray 03/05/17 10:43 IMPRESSION: The left basilar pneumothorax appears to have decreased in size in comparison to the prior study. There is persistent opacities noted in the left lung base likely representing scarring. Probable COPD Assessment & Plan - Diagnosis (1) Respiratory failure requiring intubation Is this a current diagnosis for this admission?: YesPlan: Primary issue weakness vs work of breathing (2) Asthma Qualifiers: Asthma severity: unspecified severity Asthma complication type: uncomplicated Qualified Code(s): J45.909 - Unspecified asthma, uncomplicated Is this a current diagnosis for this admission?: Yes (3) COPD (chronic obstructive pulmonary disease) Qualifiers: COPD type: unspecified COPD Qualified Code(s): J44.9 - Chronic obstructive pulmonary disease, unspecified Is this a current diagnosis for this admission?: Yes (4) Bowel perforation Is this a current diagnosis for this admission?: Yes (5) Addiction to drug Is this a current diagnosis for this admission?: Yes (6) Personal history of nutritional deficiency Is this a current diagnosis for this admission?: Yes - Time Critical Time spent with patient: 35 or more minutes - 50 min
[2017-03-06] MEDS: AMINO ACIDS 5%/D25W 1,000 ML IV PRN (20:18)
[2017-03-06] MEDS ORDERED: ACETAMINOPHEN 650 MG SUPP.RECT PR PRN (20:34)
[2017-03-07] MEDS: PROPOFOL 100 ML IV PRN ×3 (04:29→18:38)
[2017-03-07 05:08] LABS: ARTERIAL BLOOD O2 SATURATION 92.8 % (94-98)
[2017-03-07] MEDS: METRONIDAZOLE 500 MG/NS RTU 100 ML IV SCH ×3 (05:18→21:29)
[2017-03-07 07:25] LABS: ALANINE AMINOTRANSFERASE 26 U/L (9-52); ALBUMIN 2.1 g/dL (3.5-5.0); ALKALINE PHOSPHATASE 122 U/L (38-126); ANION GAP 7 (5-19); ASPARTATE AMINO TRANSFERASE 30 U/L (14-36); BILIRUBIN,DIRECT 0.3 mg/dL (0.0-0.4); BILIRUBIN,TOTAL 0.4 mg/dL (0.2-1.3); BLOOD UREA NITROGEN 15 mg/dL (7-20); CALCIUM 8.1 mg/dL (8.4-10.2); CARBON DIOXIDE 26 mmol/L (22-30); CHLORIDE 102 mmol/L (98-107); GLUCOSE 130 mg/dL (75-110); PHOSPHORUS 3.7 mg/dL (2.5-4.5); POTASSIUM 3.9 mmol/L (3.6-5.0); TOTAL PROTEIN 4.6 g/dL (6.3-8.2); TRIGLYCERIDES 69 mg/dL (<150)
[2017-03-07 07:32] LABS: PREALBUMIN 14.1 mg/dL (17.6-36.0)
--- NOTE | 2017-03-07 07:40 | RADIOLOGY REPORT (SQ) ---
EXAM DESCRIPTION: CHEST SINGLE VIEW COMPLETED DATE/TIME: 03/07/2017 6:52 am REASON FOR STUDY: resp fail/l pneumothorax COMPARISON: 03/05/2017. EXAM PARAMETERS: NUMBER OF VIEWS: One view. TECHNIQUE: Single frontal radiographic view of the chest acquired. RADIATION DOSE: NA LIMITATIONS: None. FINDINGS: LUNGS AND PLEURA: Left basilar pneumothorax, loculated, moderate atelectasis -collapse of the left lower lobe, small right basilar atelectasis -scar, and mild interstitial markings. MEDIASTINUM AND HILAR STRUCTURES: No masses. Contour normal. HEART AND VASCULAR STRUCTURES: Heart normal in size. Normal vasculature. BONES: No acute findings. HARDWARE: Adequate appearing endotracheal tube, left subclavian central line, and partially imaged na sogastric tube. OTHER: No other significant finding. IMPRESSION: Loculated left basilar pneumothorax, stable. No significant interval change including m oderate left lower lobar atelectasis-collapse. Lines and tubes. TECHNICAL DOCUMENTATION: JOB ID: [id number]
--- NOTE | 2017-03-07 08:26 | PDOC PROGRESS REPORT ---
Subjective Progress Note for:: 03/07/17 Subjective:: Patient remains on the ventilator. Difficult to wean per pulmonary service. On intravenous sedation. No respiratory distress or temperature spikes reported. On nasogastric tube. Postoperative day 5-6. Hypotension has resolved. Has pneumothorax after insertion of central line but improving. Urine output negative balance today by 50 mL. She is being transfered to [facility]. [facility] reportedly has not accepted the patient as per staff. Physical Exam Vital Signs: Temp Pulse Resp BP Pulse Ox 98.8 F 112 H 22 H 110/64 100 03/07/17 08:00 03/06/17 20:00 03/07/17 06:00 03/07/17 05:55 03/07/17 06:00 Intake & Output 03/06/17 03/07/17 03/08/17 06:59 06:59 06:59 Intake Total 4336 3129 Output Total 3790 3180 100 Balance 546 -51 -100 Weight 48.6 kg 49.1 kg General appearance: PRESENT: no acute distress, thin, other - Sedated and intubated Head exam: PRESENT: normocephalic Eye exam: PRESENT: conjunctiva pale Mouth exam: PRESENT: moist, neck supple Neck exam: ABSENT: JVD Respiratory exam: PRESENT: clear to auscultation ragini. ABSENT: rhonchi, wheezes Cardiovascular exam: PRESENT: RRR. ABSENT: gallop GI/Abdominal exam: PRESENT: hypoactive bowel sounds. ABSENT: distended Extremities exam: ABSENT: pedal edema Psychiatric exam: ABSENT: agitated Focused psych exam: ABSENT: restlessness Skin exam: PRESENT: dry, warm. ABSENT: cyanosis Results Laboratory Results: 03/05/17 05:05 03/07/17 05:53 03/06/17 03/07/17 03/07/17 05:05 04:53 05:53 Carbonic Acid 1.28 HCO3/H2CO3 Ratio 23:1 ABG pH 7.47 H ABG pCO2 42.6 ABG pO2 61.5 L ABG HCO3 30.2 H ABG O2 Saturation 92.8 L ABG Base Excess 6.0 FiO2 25% Sodium 135.0 L Potassium 3.9 Chloride 102 Carbon Dioxide 26 Anion Gap 7 BUN 15 Creatinine 0.60 Est GFR ( Amer) > 60 Est GFR (Non-Af Amer) > 60 Glucose 130 H Calcium 8.1 L Phosphorus 3.7 Magnesium 1.8 Total Bilirubin 0.4 AST 30 ALT 26 Alkaline Phosphatase 122 Total Protein 4.6 L Albumin 2.1 L Prealbumin 14.1 L Triglycerides 69 Impressions: Abdomen/Pelvis CT 02/28/17 23:39 IMPRESSION: Moderate free fluid and free gas predominately below the right hemidiaphragm suggest bowel rupture of unclear source. Urgent general surgery consultation advised. Chest X-Ray 03/07/17 06:00 IMPRESSION: Loculated left basilar pneumothorax, stable. No significant interval change including moderate left lower lobar atelectasis-collapse. Lines and tubes. Assessment & Plan - Diagnosis (1) Respiratory failure requiring intubation Is this a current diagnosis for this admission?: Yes (2) Pneumothorax Qualifiers: Pneumothorax type: unspecified pneumothorax Qualified Code(s): J93.9 - Pneumothorax, unspecified Is this a current diagnosis for this admission?: Yes (3) Hypotension Qualifiers: Hypotension type: other hypotension type Qualified Code(s): I95.89 - Other hypotension Is this a current diagnosis for this admission?: Yes (4) Bowel perforation Is this a current diagnosis for this admission?: Yes (5) Anemia Qualifiers: Anemia type: other cause Other causes of anemia: acute posthemorrhagic Qualified Code(s): D62 - Acute posthemorrhagic anemia Is this a current diagnosis for this admission?: Yes (6) Hypokalemia Is this a current diagnosis for this admission?: Yes (7) Hypomagnesemia Is this a current diagnosis for this admission?: Yes (8) Pleural effusion Is this a current diagnosis for this admission?: Yes (9) Essential hypertension Is this a current diagnosis for this admission?: Yes (10) COPD (chronic obstructive pulmonary disease) Qualifiers: COPD type: unspecified COPD Qualified Code(s): J44.9 - Chronic obstructive pulmonary disease, unspecified Is this a current diagnosis for this admission?: Yes - Time Time Spent with patient: 25-34 minutes - Plan Summary Plan Summary: Patient is being evaluated by [facility] facility. Patient likely to be transferred this afternoon. In the meantime continue current management. Continue current antibiotics. Monitor electrolytes and replace accordingly. Continue TPN and supportive care. Ventilator weaning per pulmonary service.
--- NOTE | 2017-03-07 09:28 | TRANSFER SUMMARY E ---
Transfer Summary NAME: RICKEY REID : 1950 AGE: 66Y ADMITTED: 03/01/2017 TRANSFERRED: 03/07/2017 FINAL DIAGNOSES: 1. Perforated gastric ulcer. 2. Severe COPD with failure to be extubated. 3. Possible narcotic addiction. HOSPITAL COURSE: This is a 66-year-old female who has been in and out of the emergency room for pains. However, on 02/28/17 the patient complained of abdominal pains about 12 hours prior to being seen in the ER around 11 p.m. A CAT scan of the abdomen revealed free air. The patient was initially taken to the OR on 03/01/17 at around 2 a.m. where a gastric perforation was noted with collection in the right upper quadrant area. Patient did have previous abdominal operations in the past and had a lot of adhesions. The gastric perforation was closed primary and an omental patch placed over it. The gastric collection was evacuated and irrigated copiously until return flow was clear. Postoperatively the patient needed to be on the respirator, unable to be extubated. A central line was placed through the left subclavian vein on 03/04/17 primarily for TPN and had a 10% pneumothorax. The pneumothorax has essentially not changed since previous chest x-ray on 03/07/17 showed a small left basal pneumothorax that is essentially unchanged in size, which is about at most 10%. Patient in the meantime has been started on TPN on 03/05/17. Her NG tube had been draining until the night of 03/06/17. It was clamped on 03/06/17 nighttime and reconnected to suction on 03/07/17 a.m. with practically no drainage. It drained about 300 mL the night before. Her abdomen remained soft and essentially nontender. Incision looks clean and dry. She is continued on IV Flagyl because of multiple allergies to antibiotics. This is the fifth postop day today and continued on IV antibiotic therapy. CURRENT MANAGEMENT AT THIS TIME: 1. Continue with vent. 2. IV antibiotics on day 5. This may be stopped on day 7. 3. NG tube is patent but the patient has had no bowel movement and difficult to determine whether she has been passing flatus since she has been sedated since surgery. She has a persistent 10% pneumothorax on the left side which has not increased since it was noted post CVP placement or left subclavian catheter placement on 03/04/17. 4. Patient to continue on TPN at least for the next 2 days, and after 7 or 8 days the NG tube may be used for feedings and hold TPN at that time. 5. She needs follow-up chest x-ray as far as the pneumothorax is concerned, and if gets any bigger then a chest tube may need to be placed. 6. The patient has been on IV Protonix since surgery. This can be continued until patient is able to tolerate p.o. and this can be changed to p.o. antiacid medications. NOTE: The patient is also being followed by fraud representative and by medical hospitalist, primarily with Dr. Jaimes and the fraud representative, Dr. Avila. DICTATING PHYSICIAN: ANDREIA SALAZAR M.D. [id number] PHY#: [id number] ID: [id number] JOB#: [id number] ACCT: [id number] cc:ANDREIA SALAZAR M.D. > MTDD
[2017-03-07] MEDS: GABAPENTIN 300 MG CAPSULE PO SCH ×2 (10:43→17:11)
[2017-03-07] MEDS: SERTRALINE HCL 50 MG TABLET PO SCH (10:43)
[2017-03-07] MEDS: CIPROFLOXACIN 400 MG/D5W RTU 400 MG/200 ML RTUPB IV SCH ×2 (10:45→21:29)
[2017-03-07] MEDS: HEPARIN SOD (PORCINE) 5,000 UNIT/ML 1 ML SYRINGE SUBCUT SCH ×2 (10:46→21:30)
[2017-03-07] MEDS: TIOTROPIUM BROMIDE DPI 5 CAP/KIT (18 MCG/CAP) IH SCH (11:06)
[2017-03-07] MEDS: FLUTICASONE/SALMETEROL DISKUS 250-50 MCG/DOSE IH SCH ×2 (11:06→21:32)
[2017-03-07] MEDS: MORPHINE SULFATE 10 MG/ML INJ IV PRN (17:10)
[2017-03-07] MEDS: AMINO ACIDS 5%/D25W 1,000 ML IV PRN (17:50)
--- NOTE | 2017-03-07 18:55 | PROGRESS NOTE E ---
Progress Note NAME: RICKEY REID : 1950 AGE: 66Y DATE: 03/07/2017 ROOM: 601 SUBJECTIVE: The patient remains on a ventilator, tube feeds and sedation. Anticipated transfer to [facility] or [facility] postponed due to unavailability of bed and failure to wean from ventilator to date. OBJECTIVE: VITAL SIGNS: Stable. GENERAL: The patient is on ventilator and sedated. ABDOMEN: Soft. No peritoneal signs. No rigidity. HEENT: NG tube with some bilious drainage. LABORATORY PROFILE: Documented in the record. IMPRESSION: 1. VENT-DEPENDENT COPD WITH LATERAL AND BASILAR PNEUMOTHORAX, STABLE OVER THE LAST 48 HOURS ON MINIMAL VENT SUPPORT. 2. STATUS POST EXPLORATORY LAPAROTOMY, OVERSEWING OF GASTRIC PERFORATED ULCER, DOING WELL. RECOMMENDATIONS: 1. Continue nonoperative management of left basilar pneumothorax as it is stable. 2. Certainly need to be prepared for emergent chest tube insertion as the patient remains on positive pressure ventilation. 3. Will initiate tube feeds at 15 mL/h to stimulate GI function. DICTATING PHYSICIAN: BONITA HUTCHINS M.D. [id number] PHY#: [id number] ID: [id number] JOB#: [id number] ACCT: [id number] cc: >
[2017-03-07] MEDS: LACTOBACILLUS ACIDOPHILUS 250 MG TAB PO SCH (21:30)
[2017-03-08] MEDS: PROPOFOL 100 ML IV PRN ×2 (02:23→08:38)
[2017-03-08 05:44] LABS: HEMATOCRIT 26.8 % (36.0-47.0); HEMOGLOBIN 8.7 g/dL (12.0-15.5); HGB HCT DIFFERENCE -0.7; MEAN CORPUSCULAR HEMOGLOBIN 28.3 pg (27.0-33.4); MEAN CORPUSCULAR HGB CONC 32.6 g/dL (32.0-36.0); MEAN CORPUSCULAR VOLUME 87 fl (80-97); RED BLOOD COUNT 3.09 10^6/uL (3.72-5.28); RED CELL DISTRIBUTION WIDTH 17.7 % (11.5-14.0); WHITE BLOOD COUNT 9.6 10^3/uL (4.0-10.5)
[2017-03-08 05:55] LABS: ARTERIAL BLOOD BASE EXCESS 3.2 mmol/L
[2017-03-08 06:10] LABS: ANION GAP 10 (5-19); BLOOD UREA NITROGEN 15 mg/dL (7-20); CALCIUM 8.2 mg/dL (8.4-10.2); CARBON DIOXIDE 26 mmol/L (22-30); CHLORIDE 100 mmol/L (98-107); CREATININE RESULT 0.54 mg/dL (0.52-1.25); GLUCOSE 140 mg/dL (75-110); MAGNESIUM 1.9 mg/dL (1.6-2.3); POTASSIUM 3.6 mmol/L (3.6-5.0); SODIUM 135.5 mmol/L (137-145)
--- NOTE | 2017-03-08 07:13 | RADIOLOGY REPORT (SQ) ---
EXAM DESCRIPTION: CHEST SINGLE VIEW COMPLETED DATE/TIME: 03/08/2017 6:56 am REASON FOR STUDY: Resp. failure COMPARISON: 03/07/2017. EXAM PARAMETERS: NUMBER OF VIEWS: One view. TECHNIQUE: Single frontal radiographic view of the chest acquired. RADIATION DOSE: NA LIMITATIONS: None. FINDINGS: LUNGS AND PLEURA: Moderate hyperinflation, loculated skin left basilar and minimal left ap ical pneumothorax, mild interstitial markings. Moderate left lower lobar opacity/collapse with. MEDIASTINUM AND HILAR STRUCTURES: No masses. Contour normal. HEART AND VASCULAR STRUCTURES: Heart normal in size. Normal vasculature. BONES: No acute findings. HARDWARE: Adequate appearing endotracheal and partially imaged nasogastric tubes. Left subclavian ce ntral line tip at the cavoatrial junction. OTHER: No other significant finding. IMPRESSION: Small-moderate left, predominantly basilar pneumothorax. Left lower lobar collapse/opac ity. Lines and tubes. No significant interval change. TECHNICAL DOCUMENTATION: JOB ID: [id number]
--- NOTE | 2017-03-08 08:22 | PDOC PROGRESS REPORT ---
Subjective Progress Note for:: 03/08/17 Subjective:: Patient remains on the ventilator but being weaned. Versed is off but diprivan still on. She has bowel movements. Tolerating tube feeding. On TPN. No reported temperature spikes or respiratory distress. Clostridium difficile toxin reportedly negative. Physical Exam Vital Signs: Temp Pulse Resp BP Pulse Ox 98.9 F 108 H 17 136/67 H 100 03/08/17 04:00 03/07/17 20:00 03/08/17 06:18 03/08/17 06:18 03/08/17 06:18 Intake & Output 03/07/17 03/08/17 03/09/17 06:59 06:59 06:59 Intake Total 3129 2767 Output Total 3180 2440 Balance -51 327 Weight 49.1 kg 48.5 kg General appearance: PRESENT: no acute distress, thin Head exam: PRESENT: normocephalic Eye exam: PRESENT: EOMI Mouth exam: PRESENT: moist, neck supple Neck exam: ABSENT: JVD Respiratory exam: PRESENT: rhonchi - few. ABSENT: wheezes Cardiovascular exam: PRESENT: RRR. ABSENT: gallop GI/Abdominal exam: PRESENT: normal bowel sounds, soft. ABSENT: distended Extremities exam: ABSENT: pedal edema Neurological exam: PRESENT: other - Sedated and intubated Skin exam: PRESENT: dry, warm. ABSENT: cyanosis Results Laboratory Results: 03/08/17 05:25 03/08/17 05:25 03/08/17 03/08/17 03/08/17 05:25 05:25 05:30 WBC 9.6 RBC 3.09 L Hgb 8.7 L Hct 26.8 L MCV 87 MCH 28.3 MCHC 32.6 RDW 17.7 H Plt Count 343 Carbonic Acid 1.14 HCO3/H2CO3 Ratio 23:1 ABG pH 7.47 H ABG pCO2 37.9 ABG pO2 75.9 L ABG HCO3 27.0 H ABG O2 Saturation 96.0 ABG Base Excess 3.2 FiO2 25% Sodium 135.5 L Potassium 3.6 Chloride 100 Carbon Dioxide 26 Anion Gap 10 BUN 15 Creatinine 0.54 Est GFR ( Amer) > 60 Est GFR (Non-Af Amer) > 60 Glucose 140 H Calcium 8.2 L Phosphorus 4.0 Magnesium 1.9 Impressions: Abdomen/Pelvis CT 02/28/17 23:39 IMPRESSION: Moderate free fluid and free gas predominately below the right hemidiaphragm suggest bowel rupture of unclear source. Urgent general surgery consultation advised. Chest X-Ray 03/08/17 00:00 IMPRESSION: Small-moderate left, predominantly basilar pneumothorax. Left lower lobar collapse/opacity. Lines and tubes. No significant interval change. Assessment & Plan - Diagnosis (1) Respiratory failure requiring intubation Is this a current diagnosis for this admission?: Yes (2) Pneumothorax Qualifiers: Pneumothorax type: unspecified pneumothorax Qualified Code(s): J93.9 - Pneumothorax, unspecified Is this a current diagnosis for this admission?: Yes (3) Hypotension Qualifiers: Hypotension type: other hypotension type Qualified Code(s): I95.89 - Other hypotension Is this a current diagnosis for this admission?: Yes (4) Bowel perforation Is this a current diagnosis for this admission?: Yes (5) Anemia Qualifiers: Anemia type: other cause Other causes of anemia: acute posthemorrhagic Qualified Code(s): D62 - Acute posthemorrhagic anemia Is this a current diagnosis for this admission?: Yes (6) Hypokalemia Is this a current diagnosis for this admission?: Yes (7) Hypomagnesemia Is this a current diagnosis for this admission?: Yes (8) Pleural effusion Is this a current diagnosis for this admission?: Yes (9) Essential hypertension Is this a current diagnosis for this admission?: Yes (10) COPD (chronic obstructive pulmonary disease) Qualifiers: COPD type: unspecified COPD Qualified Code(s): J44.9 - Chronic obstructive pulmonary disease, unspecified Is this a current diagnosis for this admission?: Yes - Time Time Spent with patient: 25-34 minutes - Plan Summary Plan Summary: Start the patient on Protonix and monitor hemoglobin hematocrit. Transfuse as needed. We will wean TPN. Advance tube feedings as per surgical service. Weaning ventilator per pulmonary service. Continue to monitor electrolytes and replace accordingly. Follow-up chest x-ray in the morning.
[2017-03-08] MEDS: TIOTROPIUM BROMIDE DPI 5 CAP/KIT (18 MCG/CAP) IH SCH (09:34)
--- NOTE | 2017-03-08 09:39 | PROGRESS NOTE E ---
Progress Note NAME: RICKEY REID : 1950 AGE: 66Y DATE: 03/08/2017 ROOM: 601 SUBJECTIVE: This is about the 8th postop day. She is still intubated but getting to be more alert. She tolerated small amount of feedings through the NG tube. She did have a bowel movement this morning. OBJECTIVE: Her abdomen is soft, nontender. She is still on TPN. LABORATORY DATA: Her white count remains normal at 9.6, hemoglobin somewhat decreased to 8.7 from 10.3 three days ago. She had a chest x-ray which showed a stable left basilar pneumothorax at most 10%. Electrolytes are normal. PLAN: 1. We are still waiting for a bed at the [facility] long-term facility. 2. She could probably be extubated today and discontinue the NG tube and start p.o. diet. 3. TPN can be stopped when tolerating enough calories taken by mouth. DICTATING PHYSICIAN: ANDREIA SALAZAR M.D. [id number] PHY#: [id number] ID: [id number] JOB#: [id number] ACCT: [id number] cc: >
[2017-03-08] MEDS: FLUTICASONE/SALMETEROL DISKUS 250-50 MCG/DOSE IH SCH ×2 (10:36→22:44)
[2017-03-08] MEDS: HEPARIN SOD (PORCINE) 5,000 UNIT/ML 1 ML SYRINGE SUBCUT SCH ×2 (10:53→22:44)
[2017-03-08] MEDS: GABAPENTIN 300 MG CAPSULE PO SCH ×2 (10:54→22:44)
[2017-03-08] MEDS: PANTOPRAZOLE SODIUM 40 MG VIAL IV SCH ×2 (10:54→22:44)
[2017-03-08] MEDS: LACTOBACILLUS ACIDOPHILUS 250 MG TAB PO SCH ×2 (10:55→22:44)
[2017-03-08] MEDS: SERTRALINE HCL 50 MG TABLET PO SCH (10:55)
--- NOTE | 2017-03-08 12:33 | PDOC PROGRESS REPORT ---
Subjective Progress Note for:: 03/07/17 Subjective:: intubated sedated trial to sustain pressure support CPAP Physical Exam Vital Signs: Temp Pulse Resp BP Pulse Ox 98.8 F 95 24 H 110/64 99 03/07/17 08:00 03/07/17 08:13 03/07/17 08:13 03/07/17 05:55 03/07/17 08:13 Intake & Output 03/06/17 03/07/17 03/08/17 06:59 06:59 06:59 Intake Total 4336 3129 Output Total 3790 3180 100 Balance 546 -51 -100 Weight 48.6 kg 49.1 kg General appearance: PRESENT: no acute distress, disheveled, thin, well-developed Head exam: PRESENT: atraumatic, normocephalic Eye exam: PRESENT: conjunctiva pale Mouth exam: PRESENT: neck supple, other - ET tube Neck exam: ABSENT: carotid bruit, JVD, lymphadenopathy, thyromegaly Respiratory exam: PRESENT: decreased breath sounds, prolonged expiratory phas - R>L, rhonchi, unlabored Cardiovascular exam: PRESENT: RRR, +S1, +S2 Pulses: PRESENT: normal radial pulses GI/Abdominal exam: PRESENT: hypoactive bowel sounds, rigid, other - s/p surgery Rectal exam: PRESENT: deferred Gentrourinary exam: PRESENT: indwelling catheter Musculoskeletal exam: PRESENT: normal inspection Neurological exam: PRESENT: awake Skin exam: PRESENT: dry, warm Results Laboratory Results: 03/05/17 05:05 03/07/17 05:53 03/07/17 03/07/17 04:53 05:53 Carbonic Acid 1.28 HCO3/H2CO3 Ratio 23:1 ABG pH 7.47 H ABG pCO2 42.6 ABG pO2 61.5 L ABG HCO3 30.2 H ABG O2 Saturation 92.8 L ABG Base Excess 6.0 FiO2 25% Sodium 135.0 L Potassium 3.9 Chloride 102 Carbon Dioxide 26 Anion Gap 7 BUN 15 Creatinine 0.60 Est GFR ( Amer) > 60 Est GFR (Non-Af Amer) > 60 Glucose 130 H Calcium 8.1 L Phosphorus 3.7 Total Bilirubin 0.4 AST 30 ALT 26 Alkaline Phosphatase 122 Total Protein 4.6 L Albumin 2.1 L Prealbumin 14.1 L Triglycerides 69 Impressions: Abdomen/Pelvis CT 02/28/17 23:39 IMPRESSION: Moderate free fluid and free gas predominately below the right hemidiaphragm suggest bowel rupture of unclear source. Urgent general surgery consultation advised. Chest X-Ray 03/07/17 06:00 IMPRESSION: Loculated left basilar pneumothorax, stable. No significant interval change including moderate left lower lobar atelectasis-collapse. Lines and tubes. Assessment & Plan - Diagnosis (1) Respiratory failure requiring intubation Is this a current diagnosis for this admission?: No (2) Asthma Qualifiers: Asthma severity: unspecified severity Asthma complication type: uncomplicated Qualified Code(s): J45.909 - Unspecified asthma, uncomplicated Is this a current diagnosis for this admission?: No (3) COPD (chronic obstructive pulmonary disease) Qualifiers: COPD type: unspecified COPD Qualified Code(s): J44.9 - Chronic obstructive pulmonary disease, unspecified Is this a current diagnosis for this admission?: YesPlan: stable patient (4) Bowel perforation Is this a current diagnosis for this admission?: Yes (5) Addiction to drug Is this a current diagnosis for this admission?: Yes (6) Personal history of nutritional deficiency Is this a current diagnosis for this admission?: YesPlan: TPN + trickle enteral - Time Critical Time spent with patient: 25-34 minutes
--- NOTE | 2017-03-08 12:45 | PDOC PROGRESS REPORT ---
Subjective Progress Note for:: 03/08/17 Subjective:: intubated sedated but awake Physical Exam Vital Signs: Temp Pulse Resp BP Pulse Ox 98.9 F 108 H 17 136/67 H 100 03/08/17 04:00 03/07/17 20:00 03/08/17 06:18 03/08/17 06:18 03/08/17 06:18 Intake & Output 03/07/17 03/08/17 03/09/17 06:59 06:59 06:59 Intake Total 3129 2767 Output Total 3180 2440 Balance -51 327 Weight 49.1 kg 48.5 kg General appearance: PRESENT: no acute distress, disheveled, thin, well-developed Head exam: PRESENT: atraumatic, normocephalic Eye exam: PRESENT: conjunctiva pale Mouth exam: PRESENT: dry mucosa, neck supple, other - ET tube Neck exam: ABSENT: carotid bruit, JVD, lymphadenopathy, thyromegaly Respiratory exam: PRESENT: decreased breath sounds, prolonged expiratory phas, rhonchi, unlabored Cardiovascular exam: PRESENT: RRR, +S1, +S2 Pulses: PRESENT: normal radial pulses GI/Abdominal exam: PRESENT: hypoactive bowel sounds, soft, other - s/p surgery Rectal exam: PRESENT: deferred Gentrourinary exam: PRESENT: indwelling catheter Musculoskeletal exam: PRESENT: normal inspection Neurological exam: PRESENT: awake Skin exam: PRESENT: dry, warm Results Laboratory Results: 03/08/17 05:25 03/08/17 05:25 03/07/17 03/08/17 03/08/17 05:53 05:25 05:25 WBC 9.6 RBC 3.09 L Hgb 8.7 L Hct 26.8 L MCV 87 MCH 28.3 MCHC 32.6 RDW 17.7 H Plt Count 343 Carbonic Acid HCO3/H2CO3 Ratio ABG pH ABG pCO2 ABG pO2 ABG HCO3 ABG O2 Saturation ABG Base Excess FiO2 Sodium 135.0 L 135.5 L Potassium 3.9 3.6 Chloride 102 100 Carbon Dioxide 26 26 Anion Gap 7 10 BUN 15 15 Creatinine 0.60 0.54 Est GFR ( Amer) > 60 > 60 Est GFR (Non-Af Amer) > 60 > 60 Glucose 130 H 140 H Calcium 8.1 L 8.2 L Phosphorus 3.7 4.0 Magnesium 1.9 Total Bilirubin 0.4 AST 30 ALT 26 Alkaline Phosphatase 122 Total Protein 4.6 L Albumin 2.1 L Prealbumin 14.1 L Triglycerides 69 03/08/17 05:30 WBC RBC Hgb Hct MCV MCH MCHC RDW Plt Count Carbonic Acid 1.14 HCO3/H2CO3 Ratio 23:1 ABG pH 7.47 H ABG pCO2 37.9 ABG pO2 75.9 L ABG HCO3 27.0 H ABG O2 Saturation 96.0 ABG Base Excess 3.2 FiO2 25% Sodium Potassium Chloride Carbon Dioxide Anion Gap BUN Creatinine Est GFR ( Amer) Est GFR (Non-Af Amer) Glucose Calcium Phosphorus Magnesium Total Bilirubin AST ALT Alkaline Phosphatase Total Protein Albumin Prealbumin Triglycerides Impressions: Abdomen/Pelvis CT 02/28/17 23:39 IMPRESSION: Moderate free fluid and free gas predominately below the right hemidiaphragm suggest bowel rupture of unclear source. Urgent general surgery consultation advised. Chest X-Ray 03/08/17 00:00 IMPRESSION: Small-moderate left, predominantly basilar pneumothorax. Left lower lobar collapse/opacity. Lines and tubes. No significant interval change. Assessment & Plan - Diagnosis (1) Respiratory failure requiring intubation Is this a current diagnosis for this admission?: No (2) Asthma Qualifiers: Asthma severity: unspecified severity Asthma complication type: uncomplicated Qualified Code(s): J45.909 - Unspecified asthma, uncomplicated Is this a current diagnosis for this admission?: No (3) COPD (chronic obstructive pulmonary disease) Qualifiers: COPD type: unspecified COPD Qualified Code(s): J44.9 - Chronic obstructive pulmonary disease, unspecified Is this a current diagnosis for this admission?: YesPlan: stable daily trials to evaluate patients ability to sustain WOB (4) Bowel perforation Is this a current diagnosis for this admission?: YesPlan: as per surgery the pcp (5) Addiction to drug Is this a current diagnosis for this admission?: YesPlan: minimal narcotic last several days (6) Personal history of nutritional deficiency Is this a current diagnosis for this admission?: YesPlan: daily weaning trial - Time Critical Time spent with patient: 35 or more minutes - 75 min exstensive talk with family
[2017-03-08] MEDS ORDERED: MORPHINE SULFATE 10 MG/ML INJ ONE (14:18)
[2017-03-08] MEDS ORDERED: DEXTROSE 10%-WATER 1,000 ML IV PRN (19:19)
[2017-03-08] MEDS: MORPHINE SULFATE 10 MG/ML INJ IV PRN (20:11)
[2017-03-09] MEDS: MORPHINE SULFATE 10 MG/ML INJ IV PRN ×3 (01:29→14:25)
[2017-03-09 06:14] LABS: ABSOLUTE EOSINOPHILS # (AUTO) 0.3 10^3/uL (0.0-0.6); ABSOLUTE LYMPHOCYTES (AUTO) 1.2 10^3/uL (0.5-4.7); ABSOLUTE MONOCYTES (AUTO) 0.9 10^3/uL (0.1-1.4); ABSOLUTE NEUT (AUTO) 8.6 10^3/uL (1.7-8.2); BASOPHILS % (AUTO) 0.3 % (0-2); EOSINOPHILS % (AUTO) 2.3 % (0-6); HEMATOCRIT 28.4 % (36.0-47.0); HEMOGLOBIN 8.9 g/dL (12.0-15.5); HGB HCT DIFFERENCE -1.7; LYMPHOCYTES % (AUTO) 11.1 % (13-45); MEAN CORPUSCULAR HEMOGLOBIN 27.8 pg (27.0-33.4); MEAN CORPUSCULAR HGB CONC 31.5 g/dL (32.0-36.0); MEAN CORPUSCULAR VOLUME 88 fl (80-97); MONOCYTES % (AUTO) 8.5 % (3-13); RED BLOOD COUNT 3.22 10^6/uL (3.72-5.28); RED CELL DISTRIBUTION WIDTH 17.5 % (11.5-14.0); SEGMENTED NEUTROPHILS % (AUTO) 77.8 % (42-78); WHITE BLOOD COUNT 11.1 10^3/uL (4.0-10.5)
[2017-03-09 06:30] LABS: ANION GAP 9 (5-19); BLOOD UREA NITROGEN 12 mg/dL (7-20); CALCIUM 8.7 mg/dL (8.4-10.2); CARBON DIOXIDE 27 mmol/L (22-30); CHLORIDE 100 mmol/L (98-107); CREATININE RESULT 0.56 mg/dL (0.52-1.25); GLUCOSE 140 mg/dL (75-110); MAGNESIUM 1.7 mg/dL (1.6-2.3); PHOSPHORUS 4.2 mg/dL (2.5-4.5); POTASSIUM 3.5 mmol/L (3.6-5.0)
--- NOTE | 2017-03-09 07:36 | RADIOLOGY REPORT (SQ) ---
EXAM DESCRIPTION: CHEST SINGLE VIEW COMPLETED DATE/TIME: 03/09/2017 6:52 am REASON FOR STUDY: resp failure COMPARISON: 03/08/2017 EXAM PARAMETERS: NUMBER OF VIEWS: One view. TECHNIQUE: Single frontal radiographic view of the chest acquired. RADIATION DOSE: NA LIMITATIONS: None. FINDINGS: LUNGS AND PLEURA: Minimal left apical pneumothorax with pleural separation measuring 0.7 cm. Small bibasilar opacity-effusion. Mild interstitial markings. MEDIASTINUM AND HILAR STRUCTURES: No masses. Contour normal. HEART AND VASCULAR STRUCTURES: Heart normal in size. Normal vasculature. BONES: No acute findings. HARDWARE: Left subclavian central line tip at the cavoatrial junction. OTHER: No other significant finding. IMPRESSION: Small bibasilar opacity -layered effusion, left more than right. Minimal left apical pn eumothorax. Left subclavian central line. TECHNICAL DOCUMENTATION: JOB ID: [id number]
[2017-03-09] MEDS ORDERED: TOBRAMYCIN SULFATE INJ 80 MG/2 ML VIAL NEB SCH (08:00)
--- NOTE | 2017-03-09 09:50 | PDOC PROGRESS REPORT ---
Subjective Progress Note for:: 03/09/17 Subjective:: Patient is now extubated. No reported respiratory distress or temp spikes. (+) diarrhea but cdif is negative. Patient reports on propranolol and welbutrin, klonopin and tylenol at home. Complains of abdominal discomfort. Tolerating tube feedings as reported. Physical Exam Vital Signs: Temp Pulse Resp BP Pulse Ox 98.6 F 81 14 102/59 L 92 03/09/17 08:00 03/09/17 08:00 03/09/17 06:00 03/09/17 05:37 03/09/17 06:00 Intake & Output 03/08/17 03/09/17 03/10/17 06:59 06:59 06:59 Intake Total 2767 1481 Output Total 2440 2310 150 Balance 327 -829 -150 Weight 48.5 kg 46.7 kg General appearance: PRESENT: no acute distress, cooperative Head exam: PRESENT: normocephalic Eye exam: PRESENT: EOMI Mouth exam: PRESENT: moist, neck supple Neck exam: ABSENT: JVD Respiratory exam: PRESENT: rhonchi - minimal, unlabored. ABSENT: wheezes Cardiovascular exam: PRESENT: RRR. ABSENT: gallop GI/Abdominal exam: PRESENT: hypoactive bowel sounds, soft. ABSENT: distended Extremities exam: ABSENT: pedal edema Neurological exam: PRESENT: alert, awake, oriented to situation Skin exam: PRESENT: dry, warm. ABSENT: cyanosis Results Laboratory Results: 03/09/17 05:50 03/09/17 05:50 03/09/17 03/09/17 05:50 05:50 WBC 11.1 H RBC 3.22 L Hgb 8.9 L Hct 28.4 L MCV 88 MCH 27.8 MCHC 31.5 L RDW 17.5 H Plt Count 397 Seg Neutrophils % 77.8 Lymphocytes % 11.1 L Monocytes % 8.5 Eosinophils % 2.3 Basophils % 0.3 Absolute Neutrophils 8.6 H Absolute Lymphocytes 1.2 Absolute Monocytes 0.9 Absolute Eosinophils 0.3 Absolute Basophils 0.0 Sodium 136.0 L Potassium 3.5 L Chloride 100 Carbon Dioxide 27 Anion Gap 9 BUN 12 Creatinine 0.56 Est GFR ( Amer) > 60 Est GFR (Non-Af Amer) > 60 Glucose 140 H Calcium 8.7 Phosphorus 4.2 Magnesium 1.7 Impressions: Abdomen/Pelvis CT 02/28/17 23:39 IMPRESSION: Moderate free fluid and free gas predominately below the right hemidiaphragm suggest bowel rupture of unclear source. Urgent general surgery consultation advised. Chest X-Ray 03/09/17 06:00 IMPRESSION: Small bibasilar opacity -layered effusion, left more than right. Minimal left apical pneumothorax. Left subclavian central line. Assessment & Plan - Diagnosis (1) Respiratory failure requiring intubation Is this a current diagnosis for this admission?: No (2) Pneumothorax Qualifiers: Pneumothorax type: unspecified pneumothorax Qualified Code(s): J93.9 - Pneumothorax, unspecified Is this a current diagnosis for this admission?: Yes (3) Hypotension Qualifiers: Hypotension type: other hypotension type Qualified Code(s): I95.89 - Other hypotension Is this a current diagnosis for this admission?: Yes (4) Bowel perforation Is this a current diagnosis for this admission?: Yes (5) Anemia Qualifiers: Anemia type: other cause Other causes of anemia: acute posthemorrhagic Qualified Code(s): D62 - Acute posthemorrhagic anemia Is this a current diagnosis for this admission?: Yes (6) Hypokalemia Is this a current diagnosis for this admission?: Yes (7) Hypomagnesemia Is this a current diagnosis for this admission?: Yes (8) Pleural effusion Is this a current diagnosis for this admission?: Yes (9) Essential hypertension Is this a current diagnosis for this admission?: Yes (10) COPD (chronic obstructive pulmonary disease) Qualifiers: COPD type: unspecified COPD Qualified Code(s): J44.9 - Chronic obstructive pulmonary disease, unspecified Is this a current diagnosis for this admission?: Yes - Time Time Spent with patient: 25-34 minutes - Plan Summary Plan Summary: Oral morphin for pain. Begin IV cipro. Continue JULY inhaler. Follow cultures. Begin PT. Replace electrolytes. Resume home welbutrin and klonopin, propranolol. D/C IV lopressor. Transfer to stepdown.
[2017-03-09] MEDS ORDERED: (PENDING PHARMACY ID) (Bupropion Hcl [Wellbutrin Xl 150 Mg 24hr Tablet] 150 MG) PO SCH (10:00)
[2017-03-09] MEDS ORDERED: TOBRAMYCIN SULFATE NEB 40 MG/ML 30 ML NEB PRN (10:30)
[2017-03-09] MEDS ORDERED: POTASSIUM CHLORIDE 20 MEQ/15 ML UDCUP PO ONE (10:30)
[2017-03-09] MEDS: HEPARIN SOD (PORCINE) 5,000 UNIT/ML 1 ML SYRINGE SUBCUT SCH ×2 (10:36→23:18)
[2017-03-09] MEDS: MORPHINE SULFATE 10 MG/5 ML ORAL SOLUTION UDCUP PO PRN ×2 (10:37→19:54)
[2017-03-09] MEDS: SERTRALINE HCL 50 MG TABLET PO SCH (10:39)
[2017-03-09] MEDS: PROPRANOLOL HCL 40 MG TABLET PO SCH ×2 (10:39→23:19)
[2017-03-09] MEDS: PANTOPRAZOLE SODIUM 40 MG VIAL IV SCH ×2 (10:39→23:19)
[2017-03-09] MEDS: TIOTROPIUM BROMIDE DPI 5 CAP/KIT (18 MCG/CAP) IH SCH (10:39)
[2017-03-09] MEDS: GABAPENTIN 300 MG CAPSULE PO SCH ×2 (10:40→18:09)
[2017-03-09] MEDS: LACTOBACILLUS ACIDOPHILUS 250 MG TAB PO SCH ×2 (10:40→23:18)
[2017-03-09] MEDS: FLUTICASONE/SALMETEROL DISKUS 250-50 MCG/DOSE IH SCH ×2 (10:40→23:18)
[2017-03-09] MEDS: CIPROFLOXACIN 400 MG/D5W RTU 200 ML IV SCH ×2 (10:40→23:17)
[2017-03-09] MEDS ORDERED: ONDANSETRON HCL INJ/PF 4 MG/2 ML SDV ONE (14:17)
[2017-03-09] MEDS ORDERED: ONDANSETRON HCL INJ/PF 4 MG/2 ML SDV IV PRN (14:35)
[2017-03-09] MEDS: BUPROPION HCL 100 MG TABLET PO SCH ×2 (15:23→23:17)
[2017-03-09] MEDS: IPRATROPIUM/ALBUTEROL 0.5-2.5 MG/3 ML AMPUL NEB PRN (19:27)
[2017-03-09] MEDS: TOBRAMYCIN SULFATE NEB 40 MG/ML 30 ML NEB SCH (19:28)
[2017-03-09] MEDS: DIPHENHYDRAMINE HCL 50 MG/ML VIAL IV PRN (21:18)
--- NOTE | 2017-03-09 22:03 | PROGRESS NOTE E ---
Progress Note NAME: RICKEY REID : 1950 AGE: 66Y DATE: 03/09/2017 ROOM: 601 SUBJECTIVE: The patient started to take clear liquids today. She was also ambulate to the bathroom. Her vital signs remain stable. She had a chest x-ray today, which showed a small bibasilar opacity and layered effusion, left more than right. Minimal left apical pneumothorax. The plan is to continue her on IV antibiotics and gradually increase her p.o. intake. I will remove alternate skin henrietta in the morning. Her abdomen is soft and nontender. DICTATING PHYSICIAN: ANDREIA SALAZAR M.D. [id number] PHY#: [id number] ID: [id number] JOB#: [id number] ACCT: [id number] cc: >
[2017-03-10] MEDS: MORPHINE SULFATE 10 MG/ML INJ IV PRN ×2 (02:17→20:23)
[2017-03-10] MEDS: MORPHINE SULFATE 10 MG/5 ML ORAL SOLUTION UDCUP PO PRN ×3 (04:16→17:30)
[2017-03-10] MEDS: BUPROPION HCL 100 MG TABLET PO SCH ×3 (05:46→22:34)
[2017-03-10] MEDS: DIPHENHYDRAMINE HCL 50 MG/ML VIAL IV PRN ×2 (05:46→12:13)
[2017-03-10 06:04] LABS: ABSOLUTE EOSINOPHILS # (AUTO) 0.2 10^3/uL (0.0-0.6); ABSOLUTE LYMPHOCYTES (AUTO) 1.7 10^3/uL (0.5-4.7); ABSOLUTE MONOCYTES (AUTO) 0.8 10^3/uL (0.1-1.4); ABSOLUTE NEUT (AUTO) 6.3 10^3/uL (1.7-8.2); BASOPHILS % (AUTO) 0.2 % (0-2); EOSINOPHILS % (AUTO) 2.3 % (0-6); HEMATOCRIT 27.7 % (36.0-47.0); HEMOGLOBIN 9.1 g/dL (12.0-15.5); HGB HCT DIFFERENCE -0.4; LYMPHOCYTES % (AUTO) 19.3 % (13-45); MEAN CORPUSCULAR HEMOGLOBIN 28.3 pg (27.0-33.4); MEAN CORPUSCULAR HGB CONC 32.8 g/dL (32.0-36.0); MEAN CORPUSCULAR VOLUME 86 fl (80-97); RED BLOOD COUNT 3.21 10^6/uL (3.72-5.28); RED CELL DISTRIBUTION WIDTH 17.5 % (11.5-14.0); SEGMENTED NEUTROPHILS % (AUTO) 69.2 % (42-78)
[2017-03-10 06:18] LABS: ALANINE AMINOTRANSFERASE 39 U/L (9-52); ALBUMIN 2.6 g/dL (3.5-5.0); ALKALINE PHOSPHATASE 159 U/L (38-126); ANION GAP 10 (5-19); ASPARTATE AMINO TRANSFERASE 62 U/L (14-36); BILIRUBIN,DIRECT 0.4 mg/dL (0.0-0.4); BILIRUBIN,TOTAL 0.6 mg/dL (0.2-1.3); BLOOD UREA NITROGEN 13 mg/dL (7-20); CALCIUM 8.7 mg/dL (8.4-10.2); CARBON DIOXIDE 27 mmol/L (22-30); CHLORIDE 99 mmol/L (98-107); CREATININE RESULT 0.58 mg/dL (0.52-1.25); GLUCOSE 113 mg/dL (75-110); POTASSIUM 3.8 mmol/L (3.6-5.0); SODIUM 136.1 mmol/L (137-145); TOTAL PROTEIN 5.5 g/dL (6.3-8.2)
--- NOTE | 2017-03-10 08:24 | PDOC PROGRESS REPORT ---
Subjective Progress Note for:: 03/10/17 Subjective:: The patient is improving. No reported temperature spikes or respiratory distress. Continues to have diarrhea on rectal check however family reports that the patient has chronic diarrhea for several years since she had her colon resected. Patient denies any pain at the moment. Pain medication regimen currently relieving her pain. Denies any shortness of breath nausea or vomiting. Tolerating oral intake. Off nasogastric tube and TPN. Physical Exam Vital Signs: Temp Pulse Resp BP Pulse Ox 97.1 F 75 17 128/69 H 97 03/09/17 20:00 03/09/17 20:00 03/10/17 06:00 03/10/17 04:37 03/10/17 06:00 Intake & Output 03/09/17 03/10/17 03/11/17 06:59 06:59 06:59 Intake Total 1481 1265 Output Total 2310 2725 Balance -829 -1460 Weight 46.7 kg General appearance: PRESENT: no acute distress, cooperative, thin Head exam: PRESENT: normocephalic Eye exam: PRESENT: EOMI Mouth exam: PRESENT: moist, neck supple Neck exam: ABSENT: JVD Respiratory exam: PRESENT: rhonchi - few B/L, unlabored. ABSENT: wheezes Cardiovascular exam: PRESENT: RRR. ABSENT: gallop GI/Abdominal exam: PRESENT: soft, tenderness - mild diffusely. ABSENT: distended Rectal exam: PRESENT: other - Rectal tube in place Extremities exam: ABSENT: pedal edema Neurological exam: PRESENT: alert, awake, oriented to person, oriented to place , oriented to time Psychiatric exam: ABSENT: agitated Focused psych exam: ABSENT: restlessness Skin exam: PRESENT: dry, warm. ABSENT: cyanosis Results Laboratory Results: 03/10/17 05:50 03/10/17 05:50 03/10/17 03/10/17 05:50 05:50 WBC 9.0 RBC 3.21 L Hgb 9.1 L Hct 27.7 L MCV 86 MCH 28.3 MCHC 32.8 RDW 17.5 H Plt Count 425 Seg Neutrophils % 69.2 Lymphocytes % 19.3 Monocytes % 9.0 Eosinophils % 2.3 Basophils % 0.2 Absolute Neutrophils 6.3 Absolute Lymphocytes 1.7 Absolute Monocytes 0.8 Absolute Eosinophils 0.2 Absolute Basophils 0.0 Sodium 136.1 L Potassium 3.8 Chloride 99 Carbon Dioxide 27 Anion Gap 10 BUN 13 Creatinine 0.58 Est GFR ( Amer) > 60 Est GFR (Non-Af Amer) > 60 Glucose 113 H Calcium 8.7 Total Bilirubin 0.6 AST 62 H ALT 39 Alkaline Phosphatase 159 H Total Protein 5.5 L Albumin 2.6 L 03/07/17 13:40 Tracheal Aspirate Gram Stain - Final 03/07/17 13:40 Tracheal Aspirate Sputum Culture - Final Escherichia Coli Normal Raysa Absent 03/07/17 13:40 Catheterized Urine Urine Culture - Final NO GROWTH 2 DAYS Impressions: Abdomen/Pelvis CT 02/28/17 23:39 IMPRESSION: Moderate free fluid and free gas predominately below the right hemidiaphragm suggest bowel rupture of unclear source. Urgent general surgery consultation advised. Assessment & Plan - Diagnosis (1) Respiratory failure requiring intubation Is this a current diagnosis for this admission?: No (2) Pneumothorax Qualifiers: Pneumothorax type: unspecified pneumothorax Qualified Code(s): J93.9 - Pneumothorax, unspecified Is this a current diagnosis for this admission?: Yes (3) Aspiration pneumonia Qualifiers: Aspiration pneumonia type: unspecified Laterality: unspecified laterality Lung location: unspecified part of lung Qualified Code(s) : J69.0 - Pneumonitis due to inhalation of food and vomit Is this a current diagnosis for this admission?: Yes (4) Hypotension Qualifiers: Hypotension type: other hypotension type Qualified Code(s): I95.89 - Other hypotension Is this a current diagnosis for this admission?: Yes (5) Bowel perforation Is this a current diagnosis for this admission?: Yes (6) Anemia Qualifiers: Anemia type: other cause Other causes of anemia: acute posthemorrhagic Qualified Code(s): D62 - Acute posthemorrhagic anemia Is this a current diagnosis for this admission?: Yes (7) Hypokalemia Is this a current diagnosis for this admission?: Yes (8) Hypomagnesemia Is this a current diagnosis for this admission?: Yes (9) Pleural effusion Is this a current diagnosis for this admission?: Yes (10) Essential hypertension Is this a current diagnosis for this admission?: Yes (11) COPD (chronic obstructive pulmonary disease) Qualifiers: COPD type: unspecified COPD Qualified Code(s): J44.9 - Chronic obstructive pulmonary disease, unspecified Is this a current diagnosis for this admission?: Yes - Time Time Spent with patient: 25-34 minutes - Plan Summary Plan Summary: Patient's hypotension has resolved. Sputum grew E. coli likely aspiration from bowel perforation. We will discontinue ciprofloxacin as it is not sensitive but continue the tobramycin inhaler. Discussed w/ pulmonary service about the mx. In the meantime advanced as per surgical service, physical therapy, consult media planner for subacute rehabilitation up in [facility], continue supportive care. She has chronic diarrhea as stated by the family since she had colon resection.
[2017-03-10] MEDS: TOBRAMYCIN SULFATE NEB 40 MG/ML 30 ML NEB SCH ×2 (08:45→19:49)
--- NOTE | 2017-03-10 08:51 | RADIOLOGY REPORT (SQ) ---
EXAM DESCRIPTION: CHEST SINGLE VIEW COMPLETED DATE/TIME: 03/10/2017 8:13 am REASON FOR STUDY: COPD/pna COMPARISON: 03/09/2017 EXAM PARAMETERS: NUMBER OF VIEWS: One view. TECHNIQUE: Single frontal radiographic view of the chest acquired. RADIATION DOSE: NA LIMITATIONS: None. FINDINGS: LUNGS AND PLEURA: Stable small left apical pneumothorax. Stable vague increased density i n the left lung base some of which appears to be related to effusion. Component of atelectasis and p neumonia also appears to be present. Mild atelectasis or scarring in the right base. COPD with mild chronic interstitial changes. MEDIASTINUM AND HILAR STRUCTURES: No masses. Contour normal. HEART AND VASCULAR STRUCTURES: Heart normal in size. Normal vasculature. BONES: No acute findings. HARDWARE: Left subclavian catheter with tip in superior vena cava. OTHER: No other significant finding. IMPRESSION: No significant change in the appearance of the chest. TECHNICAL DOCUMENTATION: JOB ID: [id number]
[2017-03-10] MEDS: SERTRALINE HCL 50 MG TABLET PO SCH (09:32)
[2017-03-10] MEDS: LACTOBACILLUS ACIDOPHILUS 250 MG TAB PO SCH ×2 (09:32→22:35)
[2017-03-10] MEDS: GABAPENTIN 300 MG CAPSULE PO SCH ×2 (09:33→17:31)
[2017-03-10] MEDS: PANTOPRAZOLE SODIUM 40 MG VIAL IV SCH ×2 (09:39→22:35)
--- NOTE | 2017-03-10 09:41 | PDOC PROGRESS REPORT ---
Subjective Progress Note for:: 03/09/17 Subjective:: extubated x 20 hrs awake Physical Exam Vital Signs: Temp Pulse Resp BP Pulse Ox 98.7 F 80 14 102/59 L 92 03/08/17 20:00 03/08/17 20:00 03/09/17 06:00 03/09/17 05:37 03/09/17 06:00 Intake & Output 03/08/17 03/09/17 03/10/17 06:59 06:59 06:59 Intake Total 2767 1481 Output Total 2440 2310 Balance 327 -829 Weight 48.5 kg 46.7 kg General appearance: PRESENT: no acute distress, cooperative, disheveled, thin, well-developed Head exam: PRESENT: atraumatic, normocephalic Eye exam: PRESENT: conjunctiva pale, EOMI Mouth exam: PRESENT: moist, neck supple, tongue midline Neck exam: ABSENT: carotid bruit, JVD, lymphadenopathy, thyromegaly Respiratory exam: PRESENT: decreased breath sounds, prolonged expiratory phas, rhonchi, symmetrical, unlabored Cardiovascular exam: PRESENT: RRR, +S1, +S2 Pulses: PRESENT: normal radial pulses GI/Abdominal exam: PRESENT: normal bowel sounds, soft. ABSENT: distended, guarding, mass, organolmegaly, rebound, tenderness Rectal exam: PRESENT: deferred Gentrourinary exam: PRESENT: indwelling catheter Musculoskeletal exam: PRESENT: normal inspection Neurological exam: PRESENT: alert, awake Psychiatric exam: PRESENT: normal mood Skin exam: PRESENT: dry, warm Results Laboratory Results: 03/09/17 05:50 03/09/17 05:50 03/09/17 03/09/17 05:50 05:50 WBC 11.1 H RBC 3.22 L Hgb 8.9 L Hct 28.4 L MCV 88 MCH 27.8 MCHC 31.5 L RDW 17.5 H Plt Count 397 Seg Neutrophils % 77.8 Lymphocytes % 11.1 L Monocytes % 8.5 Eosinophils % 2.3 Basophils % 0.3 Absolute Neutrophils 8.6 H Absolute Lymphocytes 1.2 Absolute Monocytes 0.9 Absolute Eosinophils 0.3 Absolute Basophils 0.0 Sodium 136.0 L Potassium 3.5 L Chloride 100 Carbon Dioxide 27 Anion Gap 9 BUN 12 Creatinine 0.56 Est GFR ( Amer) > 60 Est GFR (Non-Af Amer) > 60 Glucose 140 H Calcium 8.7 Phosphorus 4.2 Magnesium 1.7 Impressions: Abdomen/Pelvis CT 02/28/17 23:39 IMPRESSION: Moderate free fluid and free gas predominately below the right hemidiaphragm suggest bowel rupture of unclear source. Urgent general surgery consultation advised. Assessment & Plan - Diagnosis (1) Respiratory failure requiring intubation Is this a current diagnosis for this admission?: No (2) Asthma Qualifiers: Asthma severity: unspecified severity Asthma complication type: uncomplicated Qualified Code(s): J45.909 - Unspecified asthma, uncomplicated Is this a current diagnosis for this admission?: No (3) COPD (chronic obstructive pulmonary disease) Qualifiers: COPD type: unspecified COPD Qualified Code(s): J44.9 - Chronic obstructive pulmonary disease, unspecified Is this a current diagnosis for this admission?: Yes (4) Bowel perforation Is this a current diagnosis for this admission?: Yes (5) Addiction to drug Is this a current diagnosis for this admission?: Yes (6) Personal history of nutritional deficiency Is this a current diagnosis for this admission?: Yes - Time Critical Time spent with patient: 25-34 minutes - Plan Summary Plan Summary: will sign off for now please call if I can be of futher assistance
--- NOTE | 2017-03-10 09:44 | PDOC PROGRESS REPORT ---
Subjective Progress Note for:: 03/10/17 Subjective:: extubated x 48 hrs,stable, awake Physical Exam Vital Signs: Temp Pulse Resp BP Pulse Ox 97.1 F 75 17 128/69 H 97 03/09/17 20:00 03/09/17 20:00 03/10/17 06:00 03/10/17 04:37 03/10/17 06:00 Intake & Output 03/09/17 03/10/17 03/11/17 06:59 06:59 06:59 Intake Total 1481 1265 Output Total 2310 2725 Balance -829 -1460 Weight 46.7 kg General appearance: PRESENT: no acute distress, disheveled, thin, well-developed Head exam: PRESENT: atraumatic, normocephalic Eye exam: PRESENT: conjunctiva pale, EOMI Mouth exam: PRESENT: moist, neck supple Neck exam: ABSENT: carotid bruit, JVD, lymphadenopathy, thyromegaly Respiratory exam: PRESENT: decreased breath sounds, prolonged expiratory phas, symmetrical, unlabored Cardiovascular exam: PRESENT: RRR, +S1, +S2 Pulses: PRESENT: normal radial pulses GI/Abdominal exam: PRESENT: normal bowel sounds, soft. ABSENT: distended, guarding, mass, organolmegaly, rebound, tenderness Rectal exam: PRESENT: deferred Gentrourinary exam: PRESENT: indwelling catheter Musculoskeletal exam: PRESENT: normal inspection Neurological exam: PRESENT: alert, awake Psychiatric exam: PRESENT: normal mood Skin exam: PRESENT: dry, warm Results Laboratory Results: 03/10/17 05:50 03/10/17 05:50 03/10/17 03/10/17 05:50 05:50 WBC 9.0 RBC 3.21 L Hgb 9.1 L Hct 27.7 L MCV 86 MCH 28.3 MCHC 32.8 RDW 17.5 H Plt Count 425 Seg Neutrophils % 69.2 Lymphocytes % 19.3 Monocytes % 9.0 Eosinophils % 2.3 Basophils % 0.2 Absolute Neutrophils 6.3 Absolute Lymphocytes 1.7 Absolute Monocytes 0.8 Absolute Eosinophils 0.2 Absolute Basophils 0.0 Sodium 136.1 L Potassium 3.8 Chloride 99 Carbon Dioxide 27 Anion Gap 10 BUN 13 Creatinine 0.58 Est GFR ( Amer) > 60 Est GFR (Non-Af Amer) > 60 Glucose 113 H Calcium 8.7 Total Bilirubin 0.6 AST 62 H ALT 39 Alkaline Phosphatase 159 H Total Protein 5.5 L Albumin 2.6 L 03/07/17 13:40 Tracheal Aspirate Gram Stain - Final 03/07/17 13:40 Tracheal Aspirate Sputum Culture - Final Escherichia Coli Normal Raysa Absent 03/07/17 13:40 Catheterized Urine Urine Culture - Final NO GROWTH 2 DAYS Impressions: Abdomen/Pelvis CT 02/28/17 23:39 IMPRESSION: Moderate free fluid and free gas predominately below the right hemidiaphragm suggest bowel rupture of unclear source. Urgent general surgery consultation advised. Assessment & Plan - Diagnosis (1) Respiratory failure requiring intubation Is this a current diagnosis for this admission?: No (2) Asthma Qualifiers: Asthma severity: unspecified severity Asthma complication type: uncomplicated Qualified Code(s): J45.909 - Unspecified asthma, uncomplicated Is this a current diagnosis for this admission?: No (3) COPD (chronic obstructive pulmonary disease) Qualifiers: COPD type: unspecified COPD Qualified Code(s): J44.9 - Chronic obstructive pulmonary disease, unspecified Is this a current diagnosis for this admission?: Yes (4) Bowel perforation Is this a current diagnosis for this admission?: Yes (5) Addiction to drug Is this a current diagnosis for this admission?: Yes (6) Personal history of nutritional deficiency Is this a current diagnosis for this admission?: Yes - Time Critical Time spent with patient: 35 or more minutes
[2017-03-10] MEDS: HEPARIN SOD (PORCINE) 5,000 UNIT/ML 1 ML SYRINGE SUBCUT SCH ×2 (09:45→22:34)
[2017-03-10] MEDS: FLUTICASONE/SALMETEROL DISKUS 250-50 MCG/DOSE IH SCH ×2 (09:52→22:35)
[2017-03-10] MEDS: TIOTROPIUM BROMIDE DPI 5 CAP/KIT (18 MCG/CAP) IH SCH (10:00)
[2017-03-10] MEDS: PROPRANOLOL HCL 40 MG TABLET PO SCH ×2 (12:03→22:36)
[2017-03-10] MEDS: CLONAZEPAM 1 MG TABLET PO PRN (13:47)
--- NOTE | 2017-03-10 18:01 | PDOC PROGRESS REPORT ---
Subjective Progress Note for:: 03/10/17 Subjective:: Patient is awake, alert, communicative, got into the chair, tolerated p.o. pain medication elixir. Having some abdominal pain. Physical Exam Vital Signs: Temp Pulse Resp BP Pulse Ox 97.8 F 77 14 172/92 H 99 03/10/17 16:00 03/10/17 16:00 03/10/17 16:00 03/10/17 16:00 03/10/17 16:00 Intake & Output 03/09/17 03/10/17 03/11/17 06:59 06:59 06:59 Intake Total 1481 1265 237 Output Total 2310 2295 785 Balance -219 -6480 548 Weight 46.7 kg General appearance: PRESENT: mild distress Eye exam: PRESENT: EOMI GI/Abdominal exam: PRESENT: other - The abdomen is appropriately tender but no peritoneal signs no rigidity no guarding. Results Laboratory Results: 03/10/17 05:50 03/10/17 05:50 03/10/17 03/10/17 05:50 05:50 WBC 9.0 RBC 3.21 L Hgb 9.1 L Hct 27.7 L MCV 86 MCH 28.3 MCHC 32.8 RDW 17.5 H Plt Count 425 Seg Neutrophils % 69.2 Lymphocytes % 19.3 Monocytes % 9.0 Eosinophils % 2.3 Basophils % 0.2 Absolute Neutrophils 6.3 Absolute Lymphocytes 1.7 Absolute Monocytes 0.8 Absolute Eosinophils 0.2 Absolute Basophils 0.0 Sodium 136.1 L Potassium 3.8 Chloride 99 Carbon Dioxide 27 Anion Gap 10 BUN 13 Creatinine 0.58 Est GFR ( Amer) > 60 Est GFR (Non-Af Amer) > 60 Glucose 113 H Calcium 8.7 Total Bilirubin 0.6 AST 62 H ALT 39 Alkaline Phosphatase 159 H Total Protein 5.5 L Albumin 2.6 L 03/07/17 13:40 Tracheal Aspirate Gram Stain - Final 03/07/17 13:40 Tracheal Aspirate Sputum Culture - Final Escherichia Coli Normal Raysa Absent Impressions: Abdomen/Pelvis CT 02/28/17 23:39 IMPRESSION: Moderate free fluid and free gas predominately below the right hemidiaphragm suggest bowel rupture of unclear source. Urgent general surgery consultation advised. Chest X-Ray 03/10/17 06:00 IMPRESSION: No significant change in the appearance of the chest. Assessment & Plan - Diagnosis (1) Bowel perforation Is this a current diagnosis for this admission?: YesPlan: The patient is doing well 1 day post extubation, tolerating some p.o. She remains malnourished. Plan: 1. We will increase IV fluids to maintain adequate urine output 2. Encourage p.o. intake; she may need enteral supplementation. 3. Can be transferred to the floor pending bed available (2) COPD (chronic obstructive pulmonary disease) Qualifiers: COPD type: unspecified COPD Qualified Code(s): J44.9 - Chronic obstructive pulmonary disease, unspecified Is this a current diagnosis for this admission?: Yes
[2017-03-10] MEDS: DEXTROSE 5%-NORMAL SALINE 1,000 ML IV PRN (18:48)
[2017-03-11] MEDS: DEXTROSE 5%-NORMAL SALINE 1,000 ML IV PRN (02:01)
[2017-03-11] MEDS: CLONAZEPAM 1 MG TABLET PO PRN (03:21)
[2017-03-11] MEDS: BUPROPION HCL 100 MG TABLET PO SCH ×2 (05:36→13:23)
[2017-03-11 06:35] LABS: ANION GAP 7 (5-19); BLOOD UREA NITROGEN 15 mg/dL (7-20); CALCIUM 8.3 mg/dL (8.4-10.2); CARBON DIOXIDE 28 mmol/L (22-30); CHLORIDE 99 mmol/L (98-107); CREATININE RESULT 0.49 mg/dL (0.52-1.25); GLUCOSE 121 mg/dL (75-110); POTASSIUM 4.1 mmol/L (3.6-5.0); SODIUM 134.1 mmol/L (137-145)
[2017-03-11] MEDS: MORPHINE SULFATE 10 MG/5 ML ORAL SOLUTION UDCUP PO PRN ×2 (07:38→13:23)
[2017-03-11] MEDS: DIPHENHYDRAMINE HCL 50 MG/ML VIAL IV PRN (07:39)
[2017-03-11] MEDS: TOBRAMYCIN SULFATE NEB 40 MG/ML 30 ML NEB SCH (08:10)
[2017-03-11] MEDS: FLUTICASONE/SALMETEROL DISKUS 250-50 MCG/DOSE IH SCH (09:59)
[2017-03-11] MEDS: GABAPENTIN 300 MG CAPSULE PO SCH (09:59)
[2017-03-11] MEDS: TIOTROPIUM BROMIDE DPI 5 CAP/KIT (18 MCG/CAP) IH SCH (09:59)
[2017-03-11] MEDS: SERTRALINE HCL 50 MG TABLET PO SCH (10:00)
[2017-03-11] MEDS: PROPRANOLOL HCL 40 MG TABLET PO SCH (10:00)
[2017-03-11] MEDS: LACTOBACILLUS ACIDOPHILUS 250 MG TAB PO SCH (10:00)
[2017-03-11] MEDS: HEPARIN SOD (PORCINE) 5,000 UNIT/ML 1 ML SYRINGE SUBCUT SCH (10:01)
--- NOTE | 2017-03-11 10:18 | TRANSFER SUMMARY E ---
Transfer Summary NAME: RICKEY REID : [id number] AGE: 66Y ADMITTED: 03/01/2017 TRANSFERRED: 03/11/2017 FINAL DIAGNOSES: 1. Perforated gastric ulcer with peritonitis. 2. Chronic obstructive pulmonary disease. 3. Possible narcotic abuse. SUMMARY: This is a 66-year-old female who complained of severe abdominal pains on 02/28/2017. She went to the emergency room where a CAT scan of the abdomen revealed a perforated bowel with free air. Patient immediately taken to the OR on early 03/01/2017 and underwent exploratory laparotomy, repair of perforated gastric ulcer, and lavage of the peritoneal collection on the right side of the upper abdomen. Patient had extensive adhesions during the exploratory laparotomy and the it took us a long time to dissect the area of the perforation. Patient needed to be intubated and unable to extubate for several days in the intensive care unit. In the meantime, she was continued on IV antibiotics,protonix drip and medical consultations obtained, primarily because of persistent tachycardia. Pulmonary consultation also obtained with the instrumentation manager, Dr. Avila. A left subclavian catheter was placed for TPN use on 03/04/17. Patient had a 10% pneumothorax post Subclavian catheter placement which has decreased and stable. She was started on TPN the next day, 03/05/2017. Her albumin was 2.6 and white count of 9.0 on 03/09/2017. She was extubated on 03/09 and NGT removed. She was started on clear liquids. Alternate skin henrietta were removed then. TPN was stopped on 03/09/2017. Her abdomen is soft, nontender, and flat. Pulse oximetry is 100% on room air. Mild shortness of breath. Her Harden was discontinued 03/10/2017 and patient able to ambulate to the bathroom. Patient had a low-grade fever around 03/08/2017 and because of this continued on IV antibiotics. Patient will need the rest of the henrietta removed in the next 5 days. She is being transfered to [facility] today. DICTATING PHYSICIAN: ANDREIA SALAZAR M.D. [id number] PHY#: [id number] ID: [id number] JOB#: [id number] ACCT: [id number] cc:ANDREIA SALAZAR M.D. > JAC
--- NOTE | 2017-03-11 11:41 | PDOC PROGRESS REPORT ---
Subjective Progress Note for:: 03/11/17 Subjective:: Patient denies any complaints. The plan is for her to be discharged to a long- term care facility today. Physical Exam Vital Signs: Temp Pulse Resp BP Pulse Ox 97.7 F 80 13 136/62 H 99 03/11/17 07:57 03/11/17 08:00 03/11/17 10:00 03/11/17 08:38 03/11/17 09:00 Intake & Output 03/10/17 03/11/17 03/12/17 06:59 06:59 06:59 Intake Total 1265 1869 120 Output Total 2725 785 595 Balance -1460 1084 -475 Weight 45.8 kg General appearance: PRESENT: no acute distress Eye exam: PRESENT: conjunctiva pink. ABSENT: scleral icterus Mouth exam: PRESENT: moist, tongue midline Neck exam: ABSENT: JVD Respiratory exam: PRESENT: clear to auscultation ragini. ABSENT: rales, rhonchi, wheezes Cardiovascular exam: PRESENT: RRR. ABSENT: diastolic murmur, rubs, systolic murmur GI/Abdominal exam: PRESENT: normal bowel sounds, soft. ABSENT: distended, guarding, mass, organolmegaly, rebound, tenderness Extremities exam: ABSENT: calf tenderness, clubbing, pedal edema Neurological exam: PRESENT: alert, awake, oriented to person, oriented to place , oriented to time, oriented to situation, CN II-XII grossly intact. ABSENT: motor sensory deficit Psychiatric exam: PRESENT: appropriate affect Skin exam: PRESENT: dry, intact, warm. ABSENT: cyanosis, rash Results Laboratory Results: 03/10/17 05:50 03/11/17 05:45 03/11/17 03/11/17 05:45 06:28 Carbonic Acid Cancelled HCO3/H2CO3 Ratio Cancelled ABG pH Cancelled ABG pCO2 Cancelled ABG pO2 Cancelled ABG HCO3 Cancelled ABG O2 Saturation Cancelled ABG Base Excess Cancelled FiO2 Cancelled Sodium 134.1 L Potassium 4.1 Chloride 99 Carbon Dioxide 28 Anion Gap 7 BUN 15 Creatinine 0.49 L Est GFR ( Amer) > 60 Est GFR (Non-Af Amer) > 60 Glucose 121 H Calcium 8.3 L Impressions: Abdomen/Pelvis CT 02/28/17 23:39 IMPRESSION: Moderate free fluid and free gas predominately below the right hemidiaphragm suggest bowel rupture of unclear source. Urgent general surgery consultation advised. Chest X-Ray 03/10/17 06:00 IMPRESSION: No significant change in the appearance of the chest. Assessment & Plan - Diagnosis (1) Hypotension Qualifiers: Hypotension type: other hypotension type Qualified Code(s): I95.89 - Other hypotension Is this a current diagnosis for this admission?: YesPlan: Resolved (2) Bowel perforation Is this a current diagnosis for this admission?: YesPlan: Patient is status post open surgical repair. (3) COPD (chronic obstructive pulmonary disease) Qualifiers: COPD type: unspecified COPD Qualified Code(s): J44.9 - Chronic obstructive pulmonary disease, unspecified Is this a current diagnosis for this admission?: YesPlan: Nebulizers as needed. She is being followed by pulmonary medicine. (4) Anemia Qualifiers: Anemia type: other cause Other causes of anemia: acute posthemorrhagic Qualified Code(s): D62 - Acute posthemorrhagic anemia Is this a current diagnosis for this admission?: YesPlan: Stable - Time Time Spent with patient: 25-34 minutes - Plan Summary Plan Summary: Patient is to be transferred to an LTAC today.
[2017-03-11 12:12] VITALS: BP 106/59
== END 2017-03-11 14:20 | DRG 326 ==
LOC: ER 20:49 → UNDOADMIN 03-01 00:47 → EH 03-01 00:47 → ICU 03-01 04:01 → EH 03-01 04:01 → ICU 03-01 04:46 → EH 03-01 04:46
PROVIDERS: ATTEND Surgery
PROC: 5A1955Z Respiratory Ventilation, Greater than 96 Consecutive Hours (ICD-10-PCS; 2017-03-01)
PROC: 0DU607Z Supplement Stomach with Autologous Tissue Substitute, Open Approach (ICD-10-PCS; principal; 2017-03-01 02:00)
PROC: 30233N1 Transfusion of Nonautologous Red Blood Cells into Peripheral Vein, Percutaneous Approach (ICD-10-PCS; 2017-03-03)
PROC: 02HV33Z Insertion of Infusion Device into Superior Vena Cava, Percutaneous Approach (ICD-10-PCS; 2017-03-04)
DX: K25.5 Chronic or unspecified gastric ulcer with perforation (principal); J96.00 Acute respiratory failure, unspecified whether with hypoxia or hypercapnia; J93.9 Pneumothorax, unspecified; D62 Acute posthemorrhagic anemia; I95.89 Other hypotension; E87.6 Hypokalemia; E83.42 Hypomagnesemia; J44.9 Chronic obstructive pulmonary disease, unspecified; K52.9 Noninfective gastroenteritis and colitis, unspecified; I10 Essential (primary) hypertension; E63.9 Nutritional deficiency, unspecified; F32.9 Major depressive disorder, single episode, unspecified; F17.200 Nicotine dependence, unspecified, uncomplicated; Z79.899 Other long term (current) drug therapy; Z88.0 Allergy status to penicillin; Z88.8 Allergy status to other drugs, medicaments and biological substances
CPT/HCPCS: 00790; 36415; 36430; 71010; 74176; 80048; 80053; 81001; 82803; 82962; 83735; 84100; 84134; 84478; 85025; 85027; 85610; 85730; 86850; 86900; 86901; 86920; 87040; 87070; 87075; 87077; 87086; 87186; 87205; 87493; 88305; 88342; 94002; 94003; 94640; 96374; 99291; C1751; J0131; J0330; J0744; J1200; J1644; J1815; J1885; J1940; J1956; J2250; J2270; J2405; J2704; J3010; J3475; J3480; J3490; J7030; J7040; J7060; J7620; J7685; P9016; S0028; S0164

== ENCOUNTER 2017-07-10 05:45 | Emergency (ER) | payer OTHER ==
[2017-07-10 05:57] VITALS: BP 127/70
[2017-07-10] MEDS ORDERED: OXYCODONE-ACETAMINOPHEN 5-325 MG TABLET PO ONE (07:30)
--- NOTE | 2017-07-10 07:42 | ER Document Report ---
ED General - General Chief Complaint: Back Pain Stated Complaint: BACK PAIN Time Seen by Provider: 07/10/17 06:06 Mode of Arrival: Ambulatory Information source: Patient Notes: 66-year-old female presents with complaints of back pain. Patient notes she fell 2 days ago stating she tripped over her dog and landing on her buttocks. Patient states the pain started after that initially it was not too bad but has worsened over the past 2 days. Patient denies any neurological deficits denies any cauda equina concerns TRAVEL OUTSIDE OF THE [place] IN LAST 30 DAYS: No - HPI Onset: Other - 2 day duration Onset/Duration: Persistent, Worse Quality of pain: Achy Severity: Mild Pain Level: 2 Associated symptoms: Body/muscle aches Exacerbated by: Movement, Walking Relieved by: Denies Similar symptoms previously: No Recently seen / treated by doctor: No - Related Data Allergies/Adverse Reactions: Penicillins Allergy (Verified 02/09/17 15:29) prednisone [Prednisone] Allergy (Verified 02/09/17 15:29) codeine phosphate [From Tylenol-Codeine] Adverse Reaction (Verified 02/09/17 15: 29) propoxyphene napsylate [From Darvocet-N 100] Adverse Reaction (Verified 15:29) Past Medical History - Social History Smoking Status: Current Every Day Smoker Cigarette use (# per day): Yes Chew tobacco use (# tins/day): No Smoking Education Provided: No Family History: Reviewed & Not Pertinent Patient has suicidal ideation: No Patient has homicidal ideation: No - Past Medical History Cardiac Medical History: Reports: Hx Hypertension Pulmonary Medical History: Reports: Hx Asthma, Hx COPD Renal/ Medical History: Denies: Hx Peritoneal Dialysis Psychiatric Medical History: Reports: Hx Anxiety, Hx Depression Past Surgical History: Reports: Hx Appendectomy, Hx Bowel Surgery, Hx Gynecologic Surgery, Hx Orthopedic Surgery - Immunizations Hx Diphtheria, Pertussis, Tetanus Vaccination: Yes Review of Systems - Review of Systems Notes: REVIEW OF SYSTEMS: CONSTITUTIONAL : Denies fever, chills, or sweats. Denies recent illness. EENT: Denies eye, ear, throat, or mouth pain or symptoms. Denies nasal or sinus congestion or discharge. Denies throat, tongue, or mouth swelling or difficulty swallowing. CARDIOVASCULAR: Denies chest pain. Denies palpitations or racing or irregular heart beat. Denies ankle edema. RESPIRATORY: Denies cough, cold, or chest congestion. Denies shortness of breath, difficulty breathing, or wheezing. GASTROINTESTINAL: Denies abdominal pain or distention. Denies nausea, vomiting , or diarrhea. Denies blood in vomitus, stools, or per rectum. Denies black, tarry stools. Denies constipation. GENITOURINARY: Denies difficulty urinating, painful urination, burning, frequency, blood in urine, or discharge. FEMALE GENITOURINARY: Denies vaginal bleeding, heavy or abnormal periods, irregular periods. Denies vaginal discharge or odor. MUSCULOSKELETAL: Admits to low back pain SKIN: Denies rash, lesions or sores. HEMATOLOGIC : Denies easy bruising or bleeding. LYMPHATIC: Denies swollen, enlarged glands. NEUROLOGICAL: Denies confusion or altered mental status. Denies passing out or loss of consciousness. Denies dizziness or lightheadedness. Denies headache. Denies weakness or paralysis or loss of use of either side. Denies problems with gait or speech. Denies sensory loss, numbness, or tingling. Denies seizures. PSYCHIATRIC: Denies anxiety or stress. Denies depression, suicidal ideation, or homicidal ideation. ALL OTHER SYSTEMS REVIEWED AND NEGATIVE. PHYSICAL EXAMINATION: GENERAL: Well-appearing, well-nourished and in no acute distress. HEAD: Atraumatic, normocephalic. EYES: Pupils equal round and reactive to light, extraocular movements intact, conjunctiva are normal. ENT: Nares patent, oropharynx clear without exudates. Moist mucous membranes. NECK: Normal range of motion, supple without lymphadenopathy LUNGS: Breath sounds clear to auscultation bilaterally and equal. No wheezes rales or rhonchi. HEART: Regular rate and rhythm without murmurs ABDOMEN: Soft, nontender, nondistended abdomen. No guarding, no rebound. No masses appreciated. Female : deferred Musculoskeletal: Admits to low back pain on palpation of the lumbar region, no step off or deformity NEUROLOGICAL: Cranial nerves grossly intact. Normal speech, normal gait. Normal sensory, motor exams PSYCH: Normal mood, normal affect. SKIN: Warm, Dry, normal turgor, no rashes or lesions noted. Dictation was performed using [employer] voice recognition software Physical Exam - Vital signs Vitals: Temp Pulse Resp BP Pulse Ox 99.9 F 102 H 18 127/70 H 96 07/10/17 05:53 07/10/17 05:53 07/10/17 05:53 07/10/17 05:53 07/10/17 05:53 Course - Re-evaluation Re-evalutation: 07/10/17 07:42 ct imaging pending otherwise patient looks well, is able ot ambulate with no difficulty. 07/10/17 09:18 Patient is noted to have a nonacute CT, she does have urinary tract infection which may be causing the flank pain. I will treat her as pyelonephritis she is otherwise well-appearing no distress After performing a Medical Screening Examination, I estimate there is LOW risk for ACUTE APPENDICITIS, BOWEL OBSTRUCTION, ACUTE CHOLECYSTITIS, PERFORATED DIVERTICULITIS, INCARCERATED HERNIA, PANCREATITIS, PELVIC INFLAMMATORY DISEASE, PERFORATED ULCER, ECTOPIC , or TUBO-OVARIAN ABSCESS, thus I consider the discharge disposition reasonable. Also, there is no evidence or peritonitis , sepsis, or toxicity. I have reevaluated this patient multiple times and no significant life threatening changes are noted. The patient and I have discussed the diagnosis and risks, and we agree with discharging home with close follow-up with the understanding that symptoms and presentations can change. We also discussed returning to the Emergency Department immediately if new or worsening symptoms occur. We have discussed the symptoms which are most concerning (e.g., bloody stool, fever, changing or worsening pain, vomiting) that necessitate immediate return. - Vital Signs Vital signs: Temp Pulse Resp BP Pulse Ox 99.9 F 102 H 18 127/70 H 96 07/10/17 05:53 07/10/17 05:53 07/10/17 05:53 07/10/17 05:53 07/10/17 05:53 - Laboratory Laboratory results interpreted by me: 07/10/17 06:55 Urine Glucose (UA) 150 H Urine Blood MODERATE H Urine Nitrite POSITIVE H Ur Leukocyte Esterase SMALL H - Diagnostic Test Radiology reviewed: Image reviewed, Reports reviewed - ct report gfiven to patient Discharge - Discharge Clinical Impression: Flank pain, Pyelonephritis Condition: Stable Disposition: HOME, SELF-CARE Instructions: Pyelonephritis ([facility]) Additional Instructions: Follow up with your physician tomorrow for further care or return to the ED IMMEDIATELY if symptoms worsen or new concerns occur. If you cannot afford to follow up with your primary care physician a list of low cost clinics have been provided at the end of your discharge papers as well. Prescriptions: Ciprofloxacin HCl [Cipro 500 mg Tablet] 500 mg PO BID #20 tablet Hydrocodone/Acetaminophen [[place] 5-325 mg Tablet] 1 tab PO Q6 #10 tablet
[2017-07-10 07:47] LABS: APPEARANCE,URINE SLIGHTLY-CLOUDY; BILIRUBIN,URINE NEGATIVE (NEGATIVE); GLUCOSE, URINE 150 mg/dL (NEGATIVE); KETONES,URINE NEGATIVE (NEGATIVE); LEUKOCYTE ESTERASE,URINE SMALL (NEGATIVE); NITRITE,URINE POSITIVE (NEGATIVE); PROTEIN,URINE NEGATIVE (NEGATIVE); URINE SPECIFIC GRAVITY 1.017; UROBILINOGEN,URINE NEGATIVE mg/dL (<2.0)
[2017-07-10] MEDS ORDERED: CIPROFLOXACIN HCL 500 MG TABLET PO ONE (07:53)
--- NOTE | 2017-07-10 09:08 | RADIOLOGY REPORT (SQ) ---
EXAM DESCRIPTION: CT LUMBAR SPINE WITHOUT COMPLETED DATE/TIME: 07/10/2017 8:15 am REASON FOR STUDY: fall , lumbar pain COMPARISON: CT abdomen pelvis 03/01/2017 TECHNIQUE: Axial images acquired through the lumbar spine without intravenous contrast. Images revi ewed with lung, soft tissue and bone windows. Reconstructed coronal and sagittal MPR images reviewed . All images stored on PACS. All CT scanners at this facility use dose modulation, iterative reconstruction, and/or weight based d osing when appropriate to reduce radiation dose to as low as reasonably achievable (ALARA). [facility]: Dose Right [facility]: CareDose [facility]: Dose Right [facility]: Teradose 4D [facility]: [employer] RADIATION DOSE: 15.6 mGy. LIMITATIONS: None. FINDINGS: SEGMENTATION: There is transitional anatomy. A well-developed disc space is present betwe en S1 and S2. There are long transverse processes/short ribs at the L1 level. ALIGNMENT: Normal. VERTEBRAL BODIES: No fractures. No dislocation. No acute findings. DISCS: L1-2, L2-3 are unremarkable. At L3-4, mild central canal stenosis results from broad diffuse posterior disc bulging and moderate b ilateral facet and ligament hypertrophy, best shown on axial image 34. There is mild bilateral infer ior foraminal narrowing without definite exiting L3 nerve root impingement. At L4-5, broad diffuse posterior disc bulging and moderate bilateral facet and ligament hypertrophy c auses mild central canal stenosis with flattening of the thecal sac into a triangular shape, best eric wn on axial image 46. There is mild bilateral inferior foraminal narrowing without exiting L4 nerve root impingement. At L5-S1, mild posterior disc bulging and moderate bilateral facet hypertrophy left greater than righ t causes borderline central canal narrowing best shown on axial image 56. No significant foraminal n arrowing. At S1-2 there is a small disc level. No central or foraminal stenosis. PEDICLES, TRANSVERSE PROCESSES: No fractures. No dislocation. No acute findings. FACETS, POSTERIOR ELEMENTS: No fractures. No dislocation. HARDWARE: None in the spine. VISUALIZED RIBS: No fractures. SOFT TISSUES: No significant or acute finding in adjacent soft tissues. OTHER: No other significant finding. IMPRESSION: Degenerative changes at L3-4 and L4-5 as above. Transitional anatomy with short ribs/ long transverse processes at L1, and a small disc space at S1-2 TECHNICAL DOCUMENTATION: JOB ID: [id number] Quality ID # [id number]: Final reports with documentation of one or more dose reduction techniques (e.g., Au tomated exposure control, adjustment of the mA and/or kV according to patient size, use of iterative reconstruction technique) 2010 [employer]- All Rights Reserved
[2017-07-10] MEDS ORDERED: ONDANSETRON 4 MG TAB.RAPDIS PO ONE (09:22)
== END 2017-07-10 09:25 | disposition home or self-care (01) ==
LOC: ER 05:45
DX: N12 Tubulo-interstitial nephritis, not specified as acute or chronic (principal); M54.9 Dorsalgia, unspecified; F17.210 Nicotine dependence, cigarettes, uncomplicated; I10 Essential (primary) hypertension; Z88.0 Allergy status to penicillin; Z88.6 Allergy status to analgesic agent
CPT/HCPCS: 72131; 81001; 87086; 87088; 87186; 99284

== ENCOUNTER 2017-09-07 17:25 | Emergency (ER) | payer OTHER ==
[2017-09-07 17:33] VITALS: BP 183/110
--- NOTE | 2017-09-07 18:00 | ER Document Report ---
ED Medical Screen (RME) - General Chief Complaint: Headache Stated Complaint: HEADACHE Time Seen by Provider: 09/07/17 17:55 Notes: This 66-year-old female patient comes restroom with a headache for the past 3 days. She reports a sudden thunderclap type headache 3 days ago and then threw up. She has had persistent headache since then. She does not have a history of headaches. Her blood pressure is higher today than it is usually recorded. She is going straight to the CT scanner from here. I have greeted and performed a rapid initial assessment of this patient. A comprehensive ED assessment and evaluation of the patient, analysis of test results and completion of the medical decision making process will be conducted by additional ED providers. TRAVEL OUTSIDE OF THE [place] IN LAST 30 DAYS: No - Related Data Allergies/Adverse Reactions: Penicillins Allergy (Verified 09/07/17 17:26) prednisone [Prednisone] Allergy (Verified 09/07/17 17:26) codeine phosphate [From Tylenol-Codeine] Adverse Reaction (Verified 09/07/17 17: 26) propoxyphene napsylate [From Darvocet-N 100] Adverse Reaction (Verified 17:26) Home Medications: Current Home Medications Propranolol HCl [Inderal 20 mg Tablet] 20 mg PO QID 09/07/17 [History] Past Medical History - Social History Chew tobacco use (# tins/day): No Frequency of alcohol use: None Drug Abuse: None - Past Medical History Cardiac Medical History: Reports: Hx Hypertension Pulmonary Medical History: Reports: Hx Asthma, Hx COPD Renal/ Medical History: Denies: Hx Peritoneal Dialysis Psychiatric Medical History: Reports: Hx Anxiety, Hx Depression Past Surgical History: Reports: Hx Appendectomy, Hx Bowel Surgery, Hx Gynecologic Surgery, Hx Orthopedic Surgery - Immunizations Hx Diphtheria, Pertussis, Tetanus Vaccination: Yes Physical Exam - Vital signs Vitals: Temp Pulse Resp BP Pulse Ox 99.1 F 107 H 16 183/110 H 99 09/07/17 17:32 09/07/17 17:32 09/07/17 17:32 09/07/17 17:32 09/07/17 17:32 Course - Vital Signs Vital signs: Temp Pulse Resp BP Pulse Ox 99.1 F 107 H 16 183/110 H 99 09/07/17 17:32 09/07/17 17:32 12/17/17 17:32 09/07/17 17:32 09/07/17 17:32
[2017-09-07] MEDS ORDERED: PROCHLORPERAZINE EDISYLATE INJ 10 MG/2 ML VIAL IV ONE (18:20)
[2017-09-07] MEDS ORDERED: DIPHENHYDRAMINE HCL 50 MG/ML VIAL IV ONE (18:20)
--- NOTE | 2017-09-07 18:26 | RADIOLOGY REPORT (SQ) ---
EXAM DESCRIPTION: CT HEAD WITHOUT COMPLETED DATE/TIME: 09/07/2017 6:14 pm REASON FOR STUDY: Thunderclap headache 3 days ago, nausea vomiting COMPARISON: 2015. TECHNIQUE: Axial images acquired through the brain without intravenous contrast. Images reviewed wi th bone, brain and subdural windows. Images stored on PACS. All CT scanners at this facility use dose modulation, iterative reconstruction, and/or weight based d osing when appropriate to reduce radiation dose to as low as reasonably achievable (ALARA). [facility]: Dose Right [facility]: CareDose [facility]: Dose Right [facility]: Teradose 4D [facility]: [employer] RADIATION DOSE: CT Rad equipment meets quality standard of care and radiation dose reduction techniq ues were employed. CTDIvol: 64.6 mGy. DLP: 1914 mGy-cm. mGy. LIMITATIONS: None. FINDINGS: VENTRICLES: Normal size and contour. CEREBRUM: No masses. No hemorrhage. No midline shift. No evidence for acute infarction. Normal gra y/white matter differentiation. No areas of low density in the white matter. CEREBELLUM: No masses. No hemorrhage. No alteration of density. No evidence for acute infarction. EXTRAAXIAL SPACES: No fluid collections. No masses. ORBITS AND GLOBE: No intra- or extraconal masses. Normal contour of globe without masses. CALVARIUM: Previous left craniotomy. PARANASAL SINUSES: No fluid or mucosal thickening. SOFT TISSUES: No mass or hematoma. OTHER: No other significant finding. IMPRESSION: No acute intracranial abnormality. Pertinent findings on the imaging study reported as a CRITICAL RESULT to KAMERON FUNES MD at17:22 o n 09/07/2017. Category of Critical Result: Stroke alert. EVIDENCE OF ACUTE STROKE: NO. COMMENT: Quality ID # [id number]: Final reports with documentation of one or more dose reduction techniques (e.g., Automated exposure control, adjustment of the mA and/or kV according to patient size, use of iterative reconstruction technique) TECHNICAL DOCUMENTATION: JOB ID: [id number] [employer]- All Rights Reserved
--- NOTE | 2017-09-07 19:11 | ER Document Report ---
ED General - General Chief Complaint: Headache Stated Complaint: HEADACHE Time Seen by Provider: 09/07/17 17:55 Mode of Arrival: Ambulatory Information source: Patient Notes: 66-year-old female history of heroin abuse with history of migraines presents with complaints of a headache of 3 day duration. Patient admits to light sensitivity nausea vomiting. She denies any fevers or chills denies any chest pain shortness of breath. Patient does note generalized body aches TRAVEL OUTSIDE OF THE [place] IN LAST 30 DAYS: No - HPI Onset: Other - 3 day duration Onset/Duration: Waxing and waning Quality of pain: Pressure Severity: Mild Pain Level: 1 Associated symptoms: Body/muscle aches, Headache Exacerbated by: Denies Relieved by: Denies Similar symptoms previously: Yes Recently seen / treated by doctor: Yes - Related Data Allergies/Adverse Reactions: Penicillins Allergy (Verified 09/07/17 17:26) prednisone [Prednisone] Allergy (Verified 09/07/17 17:26) codeine phosphate [From Tylenol-Codeine] Adverse Reaction (Verified 09/07/17 17: 26) propoxyphene napsylate [From Darvocet-N 100] Adverse Reaction (Verified 17:26) Home Medications: Current Home Medications Propranolol HCl [Inderal 20 mg Tablet] 20 mg PO QID 09/07/17 [History] Past Medical History - Social History Smoking Status: Never Smoker Cigarette use (# per day): No Chew tobacco use (# tins/day): No Smoking Education Provided: No Frequency of alcohol use: None Drug Abuse: None Family History: Reviewed & Not Pertinent Patient has suicidal ideation: No Patient has homicidal ideation: No - Past Medical History Cardiac Medical History: Reports: Hx Hypertension Pulmonary Medical History: Reports: Hx Asthma, Hx COPD Renal/ Medical History: Denies: Hx Peritoneal Dialysis Psychiatric Medical History: Reports: Hx Anxiety, Hx Depression Past Surgical History: Reports: Hx Appendectomy, Hx Bowel Surgery, Hx Gynecologic Surgery, Hx Orthopedic Surgery - Immunizations Hx Diphtheria, Pertussis, Tetanus Vaccination: Yes Review of Systems - Review of Systems Notes: REVIEW OF SYSTEMS: CONSTITUTIONAL : Denies fever, chills, or sweats. Denies recent illness. EENT: Denies eye, ear, throat, or mouth pain or symptoms. Denies nasal or sinus congestion or discharge. Denies throat, tongue, or mouth swelling or difficulty swallowing. CARDIOVASCULAR: Denies chest pain. Denies palpitations or racing or irregular heart beat. Denies ankle edema. RESPIRATORY: Denies cough, cold, or chest congestion. Denies shortness of breath, difficulty breathing, or wheezing. GASTROINTESTINAL: Denies abdominal pain or distention. Denies nausea, vomiting , or diarrhea. Denies blood in vomitus, stools, or per rectum. Denies black, tarry stools. Denies constipation. GENITOURINARY: Denies difficulty urinating, painful urination, burning, frequency, blood in urine, or discharge. FEMALE GENITOURINARY: Denies vaginal bleeding, heavy or abnormal periods, irregular periods. Denies vaginal discharge or odor. MUSCULOSKELETAL: Denies back or neck pain or stiffness. Denies joint pain or swelling. SKIN: Denies rash, lesions or sores. HEMATOLOGIC : Denies easy bruising or bleeding. LYMPHATIC: Denies swollen, enlarged glands. NEUROLOGICAL: Admits to headache PSYCHIATRIC: Denies anxiety or stress. Denies depression, suicidal ideation, or homicidal ideation. ALL OTHER SYSTEMS REVIEWED AND NEGATIVE. PHYSICAL EXAMINATION: GENERAL: Well-appearing, well-nourished and in no acute distress. Patient is sleeping sideways on the bed HEAD: Atraumatic, normocephalic. EYES: Pupils equal round and reactive to light, extraocular movements intact, conjunctiva are normal. ENT: Nares patent, oropharynx clear without exudates. Moist mucous membranes. NECK: Normal range of motion, supple without lymphadenopathy LUNGS: Breath sounds clear to auscultation bilaterally and equal. No wheezes rales or rhonchi. HEART: Regular rate and rhythm without murmurs ABDOMEN: Soft, nontender, nondistended abdomen. No guarding, no rebound. No masses appreciated. Female : deferred Musculoskeletal: Normal range of motion, no pitting or edema. No cyanosis. NEUROLOGICAL: Cranial nerves grossly intact. Normal speech, normal gait. Normal sensory, motor exams PSYCH: Normal mood, normal affect. SKIN: Warm, Dry, normal turgor, no rashes or lesions noted. Dictation was performed using [employer] voice recognition software Physical Exam - Vital signs Vitals: Temp Pulse Resp BP Pulse Ox 99.1 F 107 H 16 183/110 H 99 09/07/17 17:32 09/07/17 17:32 09/07/17 17:32 09/07/17 17:32 09/07/17 17:32 Course - Re-evaluation Re-evalutation: 09/07/17 19:11 Given that this is a chronic type headache, CT of the head was negative, I very low suspicion for any life-threatening issues, I did offer a lumbar puncture which the patient defers, therefore I will treated with Benadryl and Compazine to treat her nausea and migraine symptoms. No neuro deficits I spoke with the patient at length in regards to having a lumbar puncture performed. Pt was told the risks and benefits of the procedure in length. I do not believe the patient should leave without the LP being performed but the patient is alert oriented x4, understands the risks and benefits of staying and leaving including disability and . Pt understands that she can return at any time for further care and is more than welcome to do so. 09/07/17 19:12 After performing a Medical Screening Examination, I estimate there is LOW risk for ACUTE GLAUCOMA, TEMPORAL ARTERITIS, MENINGITIS, INCRANIAL HEMORRHAGE, or ISCHEMIC STROKE thus I consider the discharge disposition reasonable. I have reevaluated this patient multiple times and no significant life threatening changes are noted. The patient and I have discussed the diagnosis and risks, and we agree with discharging home with close follow-up with the understanding that symptoms and presentations can change. We also discussed returning to the Emergency Department immediately if new or worsening symptoms occur. We have discussed the symptoms which are most concerning (e.g., changing or worsening symptoms, new numbness or weakness, vomiting, fever) that necessitate immediate return. 09/07/17 19:12 - Vital Signs Vital signs: Temp Pulse Resp BP Pulse Ox 99.1 F 107 H 16 183/110 H 99 09/07/17 17:32 09/07/17 17:32 09/07/17 17:32 09/07/17 17:32 09/07/17 17:32 - Diagnostic Test Radiology reviewed: Image reviewed - No acute abnormality, Reports reviewed Discharge - Discharge Clinical Impression: Essential hypertension Headache Qualifiers: Headache type: unspecified Headache chronicity pattern: chronic headache Intractability: not intractable Qualified Code(s): R51 - Headache Condition: Stable Disposition: HOME, SELF-CARE Instructions: Headache ([facility]) Additional Instructions: Follow up with your physician tomorrow for further care or return to the ED IMMEDIATELY if symptoms worsen or new concerns occur. If you cannot afford to follow up with your primary care physician a list of low cost clinics have been provided at the end of your discharge papers as well.
== END 2017-09-07 19:38 | disposition home or self-care (01) ==
LOC: ER 17:25
DX: R51 Headache (principal); I10 Essential (primary) hypertension; H53.149 Visual discomfort, unspecified; R11.2 Nausea with vomiting, unspecified; M79.1 Myalgia; J44.9 Chronic obstructive pulmonary disease, unspecified; Z86.69 Personal history of other diseases of the nervous system and sense organs; Z88.0 Allergy status to penicillin; Z88.8 Allergy status to other drugs, medicaments and biological substances
CPT/HCPCS: 99283; 96374; 96375; 70450; J1200; J0780

== ENCOUNTER 2017-10-12 13:31 | Emergency (ER) | payer MEDICARE, OTHER ==
[2017-10-12] MEDS ORDERED: OXYCODONE-ACETAMINOPHEN 5-325 MG TABLET PO ONE (15:41)
--- NOTE | 2017-10-12 15:50 | ER Document Report ---
ED Medical Screen (RME) - General Chief Complaint: Flu Symptoms Stated Complaint: HEADACHE Time Seen by Provider: 10/12/17 15:40 Mode of Arrival: Ambulatory Information source: Patient Notes: Male with a history of hypertension and COPD who presents to the emergency room with 2 weeks of cough, congestion, headaches and some nausea. Patient denies fever. She denies shortness of breath per TRAVEL OUTSIDE OF THE [place] IN LAST 30 DAYS: No - HPI Onset: Last week Onset/Duration: Gradual Quality of pain: Dull Severity: Moderate Pain Level: 2 Associated Symptoms: Chills, Cough (nonproductive). denies: Fever, Shortness of breath Exacerbated by: Denies Relieved by: Denies Similar symptoms previously: Yes Recently seen / treated by doctor: No - Related Data Smoking: Cigarettes Frequency of alcohol use: None Drug Abuse: None Allergies/Adverse Reactions: Penicillins Allergy (Verified 10/12/17 13:32) prednisone [Prednisone] Allergy (Verified 10/12/17 13:32) codeine phosphate [From Tylenol-Codeine] Adverse Reaction (Verified 10/12/17 13: 32) propoxyphene napsylate [From Darvocet-N 100] Adverse Reaction (Verified 13:32) Past Medical History - General Information source: Patient - Social History Cigarette use (# per day): Yes - Half pack per day Chew tobacco use (# tins/day): No Frequency of alcohol use: None Drug Abuse: None Lives with: Alone Family history: None - Past Medical History Cardiac Medical History: Reports: Hx Hypertension Pulmonary Medical History: Reports: Hx Asthma, Hx COPD Renal/ Medical History: Denies: Hx Peritoneal Dialysis Psychiatric Medical History: Reports: Hx Anxiety, Hx Depression Past Surgical History: Reports: Hx Appendectomy, Hx Bowel Surgery, Hx Gynecologic Surgery, Hx Orthopedic Surgery - Immunizations Hx Diphtheria, Pertussis, Tetanus Vaccination: Yes Review of Systems - Review of Systems Constitutional: Chills. denies: Fever EENT: No symptoms reported Cardiovascular: No symptoms reported Respiratory: Cough Gastrointestinal: No symptoms reported Genitourinary: No symptoms reported Female Genitourinary: No symptoms reported Musculoskeletal: No symptoms reported Skin: No symptoms reported Hematologic/Lymphatic: No symptoms reported Neurological/Psychological: See HPI Physical Exam - Vital signs Vitals: Temp Pulse Resp BP Pulse Ox 98.2 F 70 20 136/83 H 100 10/12/17 13:36 10/12/17 13:36 10/12/17 13:36 10/12/17 13:36 10/12/17 13:36 Notes: Physical exam: GENERAL: 66-year-old female, alert and oriented 3, no acute distress HEAD: Atraumatic, normocephalic. EYES: Pupils equal round and reactive to light, extraocular movements intact, sclera anicteric, conjunctiva are normal. ENT: TMs normal, nares patent, oropharynx clear without exudates. Moist mucous membranes. NECK: Normal range of motion, supple without obvious mass or JVD. LUNGS: Breath sounds clear to auscultation bilaterally and equal. No wheezes rales or rhonchi. HEART: Regular rate and rhythm without murmurs, rubs or gallops. ABDOMEN: Soft, normoactive bowel sounds. No tenderness to palpation. No guarding, no rebound. No masses appreciated. EXTREMITIES: Normal range of motion, no pitting or edema. No clubbing or cyanosis. NEUROLOGICAL: Cranial nerves II through XII grossly intact. Normal speech, moving all extremities. PSYCH: Normal mood, normal affect. SKIN: Warm, Dry, normal turgor, no rashes or lesions noted. Course - Re-evaluation Re-evalutation: 10/12/17 16:54 At the time of discharge, I have instructed the patient at the bedside with regards to return precautions and follow-up recommendations. The opportunity for questions was given. The patient has verbalized understanding of these instructions and the need for follow-up. - Vital Signs Vital signs: Temp Pulse Resp BP Pulse Ox 98 F 68 16 137/75 H 100 10/12/17 16:53 10/12/17 16:53 10/12/17 16:53 10/12/17 16:53 10/12/17 16:53 - Diagnostic Test Radiology reviewed: Image reviewed, Reports reviewed - CT of the head shows no acute process. Chest x-ray consistent with COPD but no infiltrates Doctor's Discharge - Discharge Clinical Impression: Headache, Viral syndrome Condition: Stable Disposition: HOME, SELF-CARE Additional Instructions: As we discussed, the head CT look good. Chest x-ray showed no infiltrates. The influenza studies were negative. Thank you for choosing [facility] for your care. The examination and treatment you have received in the Emergency Department today has been rendered on an emergency basis only and is not intended to be a substitute for complete medical care. You should contact your follow-up physician as it is important that she/he examine you for any new or remaining problems. If your problem worsens or new symptoms appear and you are unable to arrange prompt follow-up care, return to the Emergency Department. Specific signs to look out for: Worsening headache, cough, shortness of breath Any other instructions: Rest, drink plenty of fluids, follow-up in the [facility] which is a free clinic. Take the pain medicine as prescribed The pain medicine you're taking prescribed as a narcotic. There are several important things you should know about this medicine: 1. This medicine contains Tylenol: It is important that you do not take Tylenol (or acetaminophen) while on this medicine. Tylenol is metabolized by the liver and taking too much Tylenol (acetaminophen) can lay to liver damage and even liver failure. 2. Taking narcotics for too long can lead to physical and mental dependence. Take this medicine only if really needed and in the lowest quantity to achieve pain relief. 3. Do not drink alcohol while on this medicine. Alcohol interacts with narcotics and the combination can be dangerous. 4. Do not drive or operate machinery while on this medicine. 5. Narcotics do cause constipation, so drink plenty of fluids and daily stool softeners. Prescriptions: Oxycodone HCl/Acetaminophen [Percocet 5-325 mg Tablet] 1 - 2 tab PO ASDIR PRN # 15 tablet PRN Reason:
--- NOTE | 2017-10-12 16:04 | RADIOLOGY REPORT (SQ) ---
EXAM DESCRIPTION: CT HEAD WITHOUT COMPLETED DATE/TIME: 10/12/2017 3:55 pm REASON FOR STUDY: headache COMPARISON: 09/07/2017. TECHNIQUE: Axial images acquired through the brain without intravenous contrast. Images reviewed wi th bone, brain and subdural windows. Images stored on PACS. All CT scanners at this facility use dose modulation, iterative reconstruction, and/or weight based d osing when appropriate to reduce radiation dose to as low as reasonably achievable (ALARA). [facility]: Dose Right [facility]: CareDose [facility]: Dose Right [facility]: Teradose 4D [facility]: Smart [employer] RADIATION DOSE: CT Rad equipment meets quality standard of care and radiation dose reduction techniq ues were employed. CTDIvol: 64.6 mGy. DLP: 1034 mGy-cm. mGy. LIMITATIONS: None. FINDINGS: VENTRICLES: Normal size and contour. CEREBRUM: No masses. No hemorrhage. No midline shift. No evidence for acute infarction. Normal gra y/white matter differentiation. No areas of low density in the white matter. CEREBELLUM: No masses. No hemorrhage. No alteration of density. No evidence for acute infarction. EXTRAAXIAL SPACES: No fluid collections. No masses. ORBITS AND GLOBE: No intra- or extraconal masses. Normal contour of globe without masses. CALVARIUM: No fracture. Previous left parietal craniectomy. PARANASAL SINUSES: No fluid or mucosal thickening. SOFT TISSUES: No mass or hematoma. OTHER: No other significant finding. IMPRESSION: NORMAL BRAIN CT WITHOUT CONTRAST. STABLE SURGICAL CHANGES. EVIDENCE OF ACUTE STROKE: NO. COMMENT: Quality ID # [id number]: Final reports with documentation of one or more dose reduction techniques (e.g., Automated exposure control, adjustment of the mA and/or kV according to patient size, use of iterative reconstruction technique) TECHNICAL DOCUMENTATION: JOB ID: [id number] [employer]- All Rights Reserved
--- NOTE | 2017-10-12 16:12 | RADIOLOGY REPORT (SQ) ---
EXAM DESCRIPTION: CHEST PA/LAT COMPLETED DATE/TIME: 10/12/2017 4:02 pm REASON FOR STUDY: cough COMPARISON: CT chest 05/02/2016 Chest films 02/09/2017, 03/04/2017, 03/08/2017, 03/09/2017, 03/10/2017 EXAM PARAMETERS: NUMBER OF VIEWS: two views TECHNIQUE: Digital Frontal and Lateral radiographic views of the chest acquired. RADIATION DOSE: NA LIMITATIONS: none FINDINGS: LUNGS AND PLEURA: Lungs are hyperinflated and hyperlucent from obstructive disease. No ac [place] infiltrates. No pleural effusion. No pneumothorax. MEDIASTINUM AND HILAR STRUCTURES: No masses or contour abnormalities. HEART AND VASCULAR STRUCTURES: Heart normal size. No evidence for failure. BONES: Osteopenic with old right anterior 4th rib fracture. HARDWARE: Bilateral breast implants OTHER: No other significant finding. IMPRESSION: Obstructive lung disease. No acute findings. TECHNICAL DOCUMENTATION: JOB ID: [id number] [employer]- All Rights Reserved
[2017-10-12 16:47] LABS: A TYPE INFLUENZA AG NEGATIVE (NEGATIVE); B INFLUENZA AG NEGATIVE (NEGATIVE)
[2017-10-12 16:54] VITALS: BP 137/75
== END 2017-10-12 16:58 | disposition home or self-care (01) ==
LOC: ER 13:31
DX: R51 Headache (principal); B34.9 Viral infection, unspecified; R05 Cough; R11.0 Nausea; R68.83 Chills (without fever); I10 Essential (primary) hypertension; J44.9 Chronic obstructive pulmonary disease, unspecified; Z88.0 Allergy status to penicillin; Z88.8 Allergy status to other drugs, medicaments and biological substances; Z72.0 Tobacco use
CPT/HCPCS: 99284; 87804; 71046; 70450; A9270

== ENCOUNTER 2017-11-02 04:41 | Emergency (ER) | payer MEDICARE, OTHER ==
[2017-11-02] MEDS ORDERED: PROCHLORPERAZINE EDISYLATE INJ 10 MG/2 ML VIAL IV ONE (05:07)
[2017-11-02] MEDS ORDERED: DIPHENHYDRAMINE HCL 50 MG/ML VIAL IV ONE (05:07)
[2017-11-02] MEDS ORDERED: KETOROLAC TROMETHAMINE INJ/PF 30 MG/1 ML SDV IV ONE (05:07)
[2017-11-02] MEDS ORDERED: NORMAL SALINE 1000 ML 1,000 ML IV ONE (05:07)
--- NOTE | 2017-11-02 05:10 | ER Document Report ---
ED Headache - General Chief Complaint: Headache Stated Complaint: VOMITING Notes: Patient is a 67-year-old female with a history of migraines, COPD, heroin abuse , who comes emergency department for chief complaint of headache. She states her headache started 2 days ago, she states it causes intermittently blurry vision, nausea, vomiting, light sensitivity, and throbs on both sides of her face worse on the left. She states this is typical for her migraines, although she used to have worse migraines and took Maxalt, they improved until recently and now she is getting them frequently again. She had 2 recent negative CAT scan of the head. She denies head injury, fever, focal numbness or weakness. She states that her headache intermittently returns and gets worse. Denies it was worse to begin with, states that it slowly progresses. TRAVEL OUTSIDE OF THE [place] IN LAST 30 DAYS: No - Related Data Allergies/Adverse Reactions: Penicillins Allergy (Verified 10/12/17 13:32) prednisone [Prednisone] Allergy (Verified 10/12/17 13:32) codeine phosphate [From Tylenol-Codeine] Adverse Reaction (Verified 10/12/17 13: 32) propoxyphene napsylate [From Darvocet-N 100] Adverse Reaction (Verified 13:32) Past Medical History - General Information source: Patient - Social History Smoking Status: Former Smoker Frequency of alcohol use: None Lives with: Alone Family History: Reviewed & Not Pertinent - Past Medical History Cardiac Medical History: Reports: Hx Hypertension Pulmonary Medical History: Reports: Hx Asthma, Hx COPD Renal/ Medical History: Denies: Hx Peritoneal Dialysis Psychiatric Medical History: Reports: Hx Anxiety, Hx Depression Past Surgical History: Reports: Hx Appendectomy, Hx Bowel Surgery, Hx Gynecologic Surgery, Hx Orthopedic Surgery - Immunizations Hx Diphtheria, Pertussis, Tetanus Vaccination: Yes Review of Systems - Review of Systems Constitutional: No symptoms reported EENT: No symptoms reported Cardiovascular: No symptoms reported Respiratory: No symptoms reported Gastrointestinal: See HPI Genitourinary: No symptoms reported Female Genitourinary: No symptoms reported Musculoskeletal: No symptoms reported Skin: No symptoms reported Hematologic/Lymphatic: No symptoms reported Neurological/Psychological: See HPI Physical Exam - Vital signs Vitals: Temp Pulse Resp BP Pulse Ox 98.7 F 81 18 174/85 H 98 11/02/17 04:51 11/02/17 04:51 11/02/17 04:51 11/02/17 04:51 11/02/17 04:51 Interpretation: Normal - General General appearance: Alert, Anxious In distress: Mild - Patient holding her head in her hands, appears uncomfortable ; she is thin and slightly disheveled - HEENT Head: Normocephalic, Atraumatic Eyes: Normal Pupils: PERRL - Respiratory Respiratory status: No respiratory distress Chest status: Nontender Breath sounds: Normal Chest palpation: Normal - Cardiovascular Rhythm: Regular Heart sounds: Normal auscultation Murmur: No - Abdominal Inspection: Normal Distension: No distension Bowel sounds: Normal Tenderness: Nontender. No: Tender, Guarding Organomegaly: No organomegaly - Back Back: Normal, Nontender - Extremities General upper extremity: Normal inspection, Nontender, Normal color, Normal ROM , Normal temperature General lower extremity: Normal inspection, Nontender, Normal color, Normal ROM , Normal temperature, Normal weight bearing. No: Remedios's sign - Neurological Neuro grossly intact: Yes Cognition: Normal Orientation: AAOx4 [place] Coma Scale Eye Opening: Spontaneous [place] Coma Scale Verbal: Oriented [place] Coma Scale Motor: Obeys Commands [place] Coma Scale Total: 15 Speech: Normal Cranial nerves: Normal Cerebellar coordination: Normal Motor strength normal: LUE, RUE, LLE, RLE Additional motor exam normals: Equal welfare worker Sensory: Normal - Psychological Associated symptoms: Normal affect, Normal mood - Skin Skin Temperature: Warm Skin Moisture: Dry Skin Color: Normal Course - Re-evaluation Re-evalutation: Normal neurological exam. Patient initially uncomfortable but on reexamination she is easily arousable, smiling, states she feels much better, states she is grateful for care. She is asking to go home. Headache was not maximal in onset , reportedly no different from previous migraines, she has had an extensive neurological workup and used to be treated by neurologist, low suspicion of subarachnoid hemorrhage, meningitis, venous sinus thrombosis, aneurysm, or mass. 2 recent CAT scans of the head. Patient will be treated with Fioricet at home, discussed follow-up with her primary care, discussed return precautions , patient states understanding and agreement. - Vital Signs Vital signs: Temp Pulse Resp BP Pulse Ox 98.9 F 76 18 138/81 H 95 11/02/17 06:42 11/02/17 06:42 11/02/17 04:51 11/02/17 06:42 11/02/17 06:42 Discharge - Discharge Clinical Impression: Headache Qualifiers: Headache type: unspecified Headache chronicity pattern: acute headache Intractability: not intractable Qualified Code(s): R51 - Headache Condition: Stable Disposition: HOME, SELF-CARE Additional Instructions: Your symptoms and response to treatment are most consistent with a migraine headache. Hydrate, rest, take prescribed medication if needed for headaches, follow-up with your primary care for additional management. Return if you worsen including returned or severe headache, fever, vomiting, or any other concerning symptoms. Prescriptions: Butalb/Acetaminophen/Caffeine [Fioricet (50-325-40 mg) Tablet] 1 tab PO Q4HP PRN #20 tab PRN Reason: For Headache Forms: Elevated Blood Pressure
[2017-11-02 06:44] VITALS: BP 138/81
== END 2017-11-02 06:44 | disposition home or self-care (01) ==
LOC: ER 04:41
DX: R51 Headache (principal); H53.8 Other visual disturbances; R11.2 Nausea with vomiting, unspecified; H53.149 Visual discomfort, unspecified; I10 Essential (primary) hypertension; J44.9 Chronic obstructive pulmonary disease, unspecified; Z86.69 Personal history of other diseases of the nervous system and sense organs; Z88.0 Allergy status to penicillin; Z88.8 Allergy status to other drugs, medicaments and biological substances; Z87.891 Personal history of nicotine dependence
CPT/HCPCS: 99283; 96361; 96374; 96375; J1200; J1885; J0780; J7030

== ENCOUNTER 2017-11-12 15:10 | Emergency (ER) | payer MEDICARE, OTHER ==
[2017-11-12] MEDS ORDERED: ASPIRIN 81 MG TABLET, CHEWABLE PO ONE (15:24)
[2017-11-12 15:39] LABS: ABSOLUTE LYMPHOCYTES (AUTO) 2.1 10^3/uL (0.5-4.7); ABSOLUTE MONOCYTES (AUTO) 0.3 10^3/uL (0.1-1.4); BASOPHILS % (AUTO) 0.4 % (0-2); EOSINOPHILS % (AUTO) 0.7 % (0-6); HEMATOCRIT 41.5 % (36.0-47.0); HEMOGLOBIN 14.1 g/dL (12.0-15.5); LYMPHOCYTES % (AUTO) 38.2 % (13-45); MEAN CORPUSCULAR HEMOGLOBIN 32.6 pg (27.0-33.4); MEAN CORPUSCULAR VOLUME 96 fl (80-97); MONOCYTES % (AUTO) 5.8 % (3-13); PLATELET COUNT 284 10^3/uL (150-450); RED BLOOD COUNT 4.32 10^6/uL (3.72-5.28); RED CELL DISTRIBUTION WIDTH 13.2 % (11.5-14.0); SEGMENTED NEUTROPHILS % (AUTO) 54.9 % (42-78); TOTAL CELLS COUNTED % (AUTO) 100 %; WHITE BLOOD COUNT 5.4 10^3/uL (4.0-10.5)
[2017-11-12 16:00] LABS: ALANINE AMINOTRANSFERASE 24 U/L (9-52); ALBUMIN 4.8 g/dL (3.5-5.0); ALKALINE PHOSPHATASE 76 U/L (38-126); ANION GAP 12 (5-19); ASPARTATE AMINO TRANSFERASE 38 U/L (14-36); BILIRUBIN,DIRECT 0.4 mg/dL (0.0-0.4); BILIRUBIN,TOTAL 0.4 mg/dL (0.2-1.3); BLOOD UREA NITROGEN 11 mg/dL (7-20); CALCIUM 9.8 mg/dL (8.4-10.2); CARBON DIOXIDE 23 mmol/L (22-30); CHLORIDE 103 mmol/L (98-107); CREATINE KINASE 47 U/L (30-135); GLUCOSE 102 mg/dL (75-110); SODIUM 137.9 mmol/L (137-145); TOTAL PROTEIN 7.9 g/dL (6.3-8.2)
[2017-11-12 16:12] LABS: CREATINE KINASE MB 0.61 ng/mL (<4.55)
[2017-11-12 16:13] LABS: TROPONIN I < 0.012 ng/mL
--- NOTE | 2017-11-12 16:21 | RADIOLOGY REPORT (SQ) ---
EXAM DESCRIPTION: CHEST SINGLE VIEW COMPLETED DATE/TIME: 11/12/2017 4:12 pm REASON FOR STUDY: chest pain COMPARISON: 10/12/2017 NUMBER OF VIEWS: One view. TECHNIQUE: Single frontal radiographic view of the chest acquired. LIMITATIONS: Positioning. FINDINGS: LUNGS AND PLEURA: No opacities, masses or pneumothorax. No pleural effusion. Attenuated bl ood vessels and flattened ayanna-diaphragms. MEDIASTINUM AND HILAR STRUCTURES: No masses. Contour normal. HEART AND VASCULAR STRUCTURES: Heart normal in size. Normal vasculature. BONES: No acute findings. HARDWARE: None in the chest. OTHER: No other significant finding. IMPRESSION: COPD. NO ACUTE RADIOGRAPHIC FINDING IN THE CHEST. TECHNICAL DOCUMENTATION: JOB ID: [id number] [employer]- All Rights Reserved
--- NOTE | 2017-11-12 18:18 | ER Document Report ---
ED Cardiac - General Chief Complaint: Chest Wall Pain Stated Complaint: CHEST PAIN Time Seen by Provider: 11/12/17 15:28 Mode of Arrival: Ambulatory Information source: Patient Notes: Patient is a 67-year-old female with a history of COPD who is well-known to this emergency department who presents to the ER via EMS today for chest pain 3 days. Patient states is actually been longer than that but that she does not know how long to tell me. Patient admits to shortness of breath and nausea with her chest pain. She has no history of heart attack or stroke. She denies any fever, chills, increasing cough from her norm lately. TRAVEL OUTSIDE OF THE [place] IN LAST 30 DAYS: No - Related Data Allergies/Adverse Reactions: Penicillins Allergy (Verified 10/12/17 13:32) prednisone [Prednisone] Allergy (Verified 10/12/17 13:32) codeine phosphate [From Tylenol-Codeine] Adverse Reaction (Verified 10/12/17 13: 32) propoxyphene napsylate [From Darvocet-N 100] Adverse Reaction (Verified 13:32) Past Medical History - General Information source: Patient - Social History Smoking Status: Current Every Day Smoker Chew tobacco use (# tins/day): No Frequency of alcohol use: Social Drug Abuse: None Family History: Reviewed & Not Pertinent Patient has suicidal ideation: No Patient has homicidal ideation: No - Past Medical History Cardiac Medical History: Reports: Hx Hypertension Pulmonary Medical History: Reports: Hx Asthma, Hx COPD Renal/ Medical History: Denies: Hx Peritoneal Dialysis Psychiatric Medical History: Reports: Hx Anxiety, Hx Depression Past Surgical History: Reports: Hx Appendectomy, Hx Bowel Surgery, Hx Gynecologic Surgery, Hx Orthopedic Surgery - Immunizations Hx Diphtheria, Pertussis, Tetanus Vaccination: Yes Review of Systems - Review of Systems Constitutional: No symptoms reported EENT: No symptoms reported Cardiovascular: See HPI Respiratory: See HPI Gastrointestinal: No symptoms reported Genitourinary: No symptoms reported Female Genitourinary: No symptoms reported Musculoskeletal: No symptoms reported Skin: No symptoms reported Hematologic/Lymphatic: No symptoms reported Neurological/Psychological: No symptoms reported Physical Exam - Vital signs Vitals: Pulse Ox 100 11/12/17 15:24 - Notes Notes: PHYSICAL EXAMINATION: GENERAL: Chronically ill-appearing, cachectic, appears , older than stated age, in no acute distress. HEAD: Atraumatic, normocephalic. EYES: Pupils equal round and reactive to light, extraocular movements intact, sclera anicteric, conjunctiva are normal. ENT: ear canals without erythema or foreign body, TMs pearly [place] with good bony landmarks, nares patent, oropharynx clear without exudates. Moist mucous membranes. NECK: Normal range of motion, supple without lymphadenopathy LUNGS: CTAB and equal. No wheezes rales or rhonchi. HEART: Entire chest tender to palpation, Regular rate and rhythm without murmurs ABDOMEN: Soft, no tenderness. No guarding, no rebound BACK: no vertebral tenderness, normal ROM GI/: no CVA tenderness EXTREMITIES: Normal range of motion, no pitting edema. No cyanosis. NEUROLOGICAL: Cranial nerves grossly intact. Normal sensory/motor exams. PSYCH: Normal mood, normal affect. SKIN: Warm, Dry, normal turgor, no rashes or lesions noted Course - Re-evaluation Re-evalutation: 11/12/17 18:33 Lab work unremarkable including a normal set of cardiac enzymes, EKG reveals a normal sinus rhythm without evidence of ischemia. Patient has been seen here multiple times for chest pain is a chronic opioid user. Patient received aspirin today. Chest x-ray reports COPD but no acute pathology. 11/12/17 18:34 - Vital Signs Vital signs: Temp Pulse Resp BP Pulse Ox 98.6 F 20 168/93 H 100 11/12/17 15:45 11/12/17 15:45 11/12/17 15:45 11/12/17 15:45 - Laboratory Result Diagrams: 11/12/17 15:30 11/12/17 15:30 Laboratory results interpreted by me: 11/12/17 15:30 AST 38 H Discharge - Discharge Clinical Impression: COPD (chronic obstructive pulmonary disease) Qualifiers: COPD type: unspecified COPD Qualified Code(s): J44.9 - Chronic obstructive pulmonary disease, unspecified Chest pain Qualifiers: Chest pain type: unspecified Qualified Code(s): R07.9 - Chest pain, unspecified Condition: Stable Disposition: HOME, SELF-CARE Instructions: Chest Wall Pain ([facility]) Additional Instructions: Return immediately for any new or worsening symptoms. Follow up with primary care provider, call tomorrow to make followup appointment.
[2017-11-12 18:51] VITALS: BP 166/85
--- NOTE | 2017-11-13 08:02 | EKG REPORT ---
SEVERITY:- ABNORMAL ECG - SINUS RHYTHM CONSIDER LEFT VENTRICULAR HYPERTROPHY ANTERIOR Q WAVES, POSSIBLY DUE TO LVH : Confirmed by: Luiz Felipe MD 13-Nov-2017 08:01:36
== END 2017-11-12 18:51 | disposition home or self-care (01) ==
LOC: ER 15:10
DX: R07.89 Other chest pain (principal); J44.9 Chronic obstructive pulmonary disease, unspecified; R06.02 Shortness of breath; R11.0 Nausea; I10 Essential (primary) hypertension; F17.200 Nicotine dependence, unspecified, uncomplicated; Z88.0 Allergy status to penicillin; Z88.8 Allergy status to other drugs, medicaments and biological substances; Z79.891 Long term (current) use of opiate analgesic
CPT/HCPCS: 93005; 99285; 36415; 82553; 82550; 85025; 80053; 84484; 71045; 93010; A9270

== ENCOUNTER 2017-11-14 19:32 | Emergency (ER) | payer MEDICARE, OTHER ==
[2017-11-14] MEDS ORDERED: ASPIRIN 81 MG TABLET, CHEWABLE PO ONE (19:43)
[2017-11-14 20:23] LABS: ABSOLUTE LYMPHOCYTES (AUTO) 2.2 10^3/uL (0.5-4.7); ABSOLUTE MONOCYTES (AUTO) 0.5 10^3/uL (0.1-1.4); ABSOLUTE NEUT (AUTO) 3.5 10^3/uL (1.7-8.2); BASOPHILS % (AUTO) 0.7 % (0-2); EOSINOPHILS % (AUTO) 0.7 % (0-6); HEMATOCRIT 37.4 % (36.0-47.0); HEMOGLOBIN 12.8 g/dL (12.0-15.5); LYMPHOCYTES % (AUTO) 35.1 % (13-45); MEAN CORPUSCULAR HEMOGLOBIN 32.8 pg (27.0-33.4); MEAN CORPUSCULAR HGB CONC 34.1 g/dL (32.0-36.0); MEAN CORPUSCULAR VOLUME 96 fl (80-97); MONOCYTES % (AUTO) 8.4 % (3-13); PLATELET COUNT 272 10^3/uL (150-450); RED CELL DISTRIBUTION WIDTH 13.4 % (11.5-14.0); SEGMENTED NEUTROPHILS % (AUTO) 55.1 % (42-78); TOTAL CELLS COUNTED % (AUTO) 100 %; WHITE BLOOD COUNT 6.4 10^3/uL (4.0-10.5)
[2017-11-14 20:30] LABS: INTERNATIONAL RATION (INR) 0.86; PROTHROMBIN TIME 12.3 SEC (11.4-15.4)
[2017-11-14 20:43] LABS: ALANINE AMINOTRANSFERASE 17 U/L (9-52); ALBUMIN 4.3 g/dL (3.5-5.0); ALKALINE PHOSPHATASE 62 U/L (38-126); ANION GAP 11 (5-19); ASPARTATE AMINO TRANSFERASE 31 U/L (14-36); BILIRUBIN,DIRECT 0.4 mg/dL (0.0-0.4); BILIRUBIN,TOTAL 0.4 mg/dL (0.2-1.3); BLOOD UREA NITROGEN 15 mg/dL (7-20); CALCIUM 9.7 mg/dL (8.4-10.2); CARBON DIOXIDE 20 mmol/L (22-30); CHLORIDE 109 mmol/L (98-107); CREATINE KINASE 52 U/L (30-135); GLUCOSE 106 mg/dL (75-110); SODIUM 139.8 mmol/L (137-145); TOTAL PROTEIN 7.1 g/dL (6.3-8.2)
[2017-11-14 20:53] LABS: CREATINE KINASE MB 0.98 ng/mL (<4.55)
[2017-11-14] MEDS ORDERED: LIDOCAINE 5% (700 MG) TRANSDERMAL ADH..PATCH TP ONE (20:53)
--- NOTE | 2017-11-14 20:53 | ER Document Report ---
ED General - General Chief Complaint: Chest Pain Stated Complaint: CHEST PRESSURE Time Seen by Provider: 11/14/17 19:41 TRAVEL OUTSIDE OF THE [place] IN LAST 30 DAYS: No - HPI Patient complains to provider of: Left chest wall pain Notes: Patient coming in for evaluation of left chest wall pain. Patient was seen approximately 48-72 hours prior to this visit for similar pain. Patient states they relieve her pain with measures at home therefore came back to the ER for further evaluation. Patient denies any fevers chills nausea vomiting states pain worse with moving around. Patient does have a history significant for smoking. Patient upon my evaluation resting comfortably. - Related Data Allergies/Adverse Reactions: Penicillins Allergy (Verified 10/12/17 13:32) prednisone [Prednisone] Allergy (Verified 10/12/17 13:32) codeine phosphate [From Tylenol-Codeine] Adverse Reaction (Verified 10/12/17 13: 32) propoxyphene napsylate [From Darvocet-N 100] Adverse Reaction (Verified 13:32) Past Medical History - Social History Smoking Status: Current Every Day Smoker Chew tobacco use (# tins/day): No Frequency of alcohol use: None Drug Abuse: None Family History: Reviewed & Not Pertinent Patient has suicidal ideation: No Patient has homicidal ideation: No - Past Medical History Cardiac Medical History: Reports: Hx Hypertension Pulmonary Medical History: Reports: Hx Asthma, Hx COPD Renal/ Medical History: Denies: Hx Peritoneal Dialysis Psychiatric Medical History: Reports: Hx Anxiety, Hx Depression Past Surgical History: Reports: Hx Appendectomy, Hx Bowel Surgery, Hx Gynecologic Surgery, Hx Orthopedic Surgery - Immunizations Hx Diphtheria, Pertussis, Tetanus Vaccination: Yes Review of Systems - Review of Systems Constitutional: No symptoms reported EENT: No symptoms reported Cardiovascular: Chest pain Respiratory: No symptoms reported Gastrointestinal: No symptoms reported Genitourinary: No symptoms reported Female Genitourinary: No symptoms reported Musculoskeletal: No symptoms reported Skin: No symptoms reported Hematologic/Lymphatic: No symptoms reported Neurological/Psychological: No symptoms reported -: Yes All other systems reviewed and negative Physical Exam - Vital signs Vitals: Pulse Ox 99 11/14/17 20:12 Interpretation: Normal - General General appearance: Appears well, Alert - HEENT Head: Normocephalic, Atraumatic Eyes: Normal Pupils: PERRL - Respiratory Respiratory status: No respiratory distress Chest status: Tender - Tenderness palpation of the left lateral chest and to the posterior chest wall does reproduce the patient's pain. Breath sounds: Normal Chest palpation: Normal - Cardiovascular Rhythm: Regular Heart sounds: Normal auscultation Murmur: No - Abdominal Inspection: Normal Distension: No distension Bowel sounds: Normal Tenderness: Nontender Organomegaly: No organomegaly - Back Back: Normal, Nontender - Extremities General upper extremity: Normal inspection, Nontender, Normal color, Normal ROM , Normal temperature General lower extremity: Normal inspection, Nontender, Normal color, Normal ROM , Normal temperature, Normal weight bearing. No: Remedios's sign - Neurological Neuro grossly intact: Yes Cognition: Normal Orientation: AAOx4 [place] Coma Scale Eye Opening: Spontaneous [place] Coma Scale Verbal: Oriented [place] Coma Scale Motor: Obeys Commands [place] Coma Scale Total: 15 Speech: Normal Motor strength normal: LUE, RUE, LLE, RLE Sensory: Normal - Psychological Associated symptoms: Normal affect, Normal mood - Skin Skin Temperature: Warm Skin Moisture: Dry Skin Color: Normal Course - Re-evaluation Re-evalutation: 11/15/17 01:15 Laboratory studies from previous visit were reviewed along with repeat cardiac enzymes EKG. No acute abnormality seen. Initially was going to repeat patient' s troponin for completeness however patient into the dock box stating that her ride was here and she would like to leave this time. Patient sent back to her room at that time and to review her results. Patient states feeling much better at this time patient did refuse Lidoderm patch for pain control. Patient will be discharged home follow-up with your primary care physician. The patient has atypical chest pain as the patient's chest pain is not suggestive of pulmonary embolus, cardiac ischemia, aortic dissection, or other serious etiology. Given the extremely low risk of these diagnoses further testing and evaluation for these possibilities does not appear to be indicated at this time. The patient has been instructed to return if the symptoms worsen or change in any way. - Vital Signs Vital signs: Temp Pulse Resp BP Pulse Ox 97.6 F 68 18 155/95 H 100 11/14/17 22:38 11/14/17 22:38 11/14/17 22:38 11/14/17 22:38 11/14/17 22:38 - Laboratory Result Diagrams: 11/14/17 20:05 11/14/17 20:05 Laboratory results interpreted by me: 11/14/17 20:05 Chloride 109 H Carbon Dioxide 20 L Est GFR ( Amer) 57 L Est GFR (Non-Af Amer) 47 L Discharge - Discharge Clinical Impression: Chest wall pain Condition: Good Instructions: Chest Wall Pain ([facility]), Chest Pain of Unclear Cause ([facility]) Additional Instructions: Please follow-up with your primary care provider for further pain control for your chronic chest wall pain. Return to the ER symptoms worsen.
[2017-11-14 20:57] LABS: TROPONIN I < 0.012 ng/mL
--- NOTE | 2017-11-14 21:03 | RADIOLOGY REPORT (SQ) ---
EXAM DESCRIPTION: CHEST SINGLE VIEW COMPLETED DATE/TIME: 11/14/2017 8:44 pm REASON FOR STUDY: CHEST PRESSURE COMPARISON: 11/12/2017. NUMBER OF VIEWS: One view. TECHNIQUE: Single frontal radiographic view of the chest acquired. LIMITATIONS: None. FINDINGS: LUNGS AND PLEURA: No new opacities, masses or pneumothorax. No pleural effusion. [place] d blood vessels and flattened ayanna-diaphragms. MEDIASTINUM AND HILAR STRUCTURES: No masses. Contour normal. HEART AND VASCULAR STRUCTURES: Heart stable in size. Normal vasculature. BONES: No acute findings. HARDWARE: None in the chest. OTHER: No other significant finding. IMPRESSION: COPD. NO ACUTE RADIOGRAPHIC FINDING IN THE CHEST. NO SIGNIFICANT CHANGE FROM 11/12/2017 . TECHNICAL DOCUMENTATION: JOB ID: [id number] [employer]- All Rights Reserved Reading location - IP/workstation name: [email or web address]
[2017-11-14 22:39] VITALS: BP 155/95
--- NOTE | 2017-11-15 08:52 | EKG REPORT ---
SEVERITY:- ABNORMAL ECG - SINUS RHYTHM LVH WITH SECONDARY REPOLARIZATION ABNORMALITY BORDERLINE PROLONGED QT INTERVAL NEW T INVERSIONS ANTERIOR LEADS, COMPARED TO 11/12/17 EKG, CLINICAL CORRELATION NEEDED : Confirmed by: Luiz Felipe MD 15-Nov-2017 08:51:58
== END 2017-11-14 22:39 | disposition home or self-care (01) ==
LOC: ER 19:32
DX: R07.89 Other chest pain (principal); F17.200 Nicotine dependence, unspecified, uncomplicated
CPT/HCPCS: 36415; 71045; 80053; 82550; 82553; 84484; 85025; 85610; 93005; 93010; 99285